=== PATIENT | female | born 1995 | race Caucasian/White ===

== ENCOUNTER → 2022-10-07 | Outpatient (CLI) | payer BC, SELFPAY | END | disposition home or self-care (01) | LOC: LABSPEC 15:11 | PROVIDERS: Referring Provider Registered Nurse; Visit Provider Registered Nurse | DX: R30.0 Dysuria (principal) | CPT/HCPCS: 87086; 87088; 87186 ==

== ENCOUNTER → 2022-10-13 | Outpatient (CLI) | payer BC, SELFPAY ==
[2022-10-13 12:01] LABS: hCG Titer Quant., Serum 34575 mIU/mL (1-3)
== END | disposition home or self-care (01) ==
PROVIDERS: PCP Family Medicine; Referring Provider Nurse Practitioner Women's Health; Visit Provider Nurse Practitioner Women's Health
DX: N91.2 Amenorrhea, unspecified (principal)
CPT/HCPCS: 36415; 84702; 86850; 86900; 86901

== ENCOUNTER → 2022-11-04 | Outpatient (CLI) | payer BC, SELFPAY ==
[2022-11-05 22:06] LABS: Chlamydia By Nucleic Acid AMP Negative (Negative)
[2022-11-05 22:22] LABS: Gonococcus By Nucleic Acid AMP Negative (Negative)
== END | disposition home or self-care (01) ==
LOC: LABSPEC 10:59
PROVIDERS: PCP Family Medicine; Referring Provider Obstetrics & Gynecology; Visit Provider Obstetrics & Gynecology
DX: Z34.90 Encounter for supervision of normal pregnancy, unspecified, unspecified trimester (principal)
CPT/HCPCS: 87086; 87088; 87491; 87591

== ENCOUNTER → 2022-11-27 | Outpatient (CLI) | payer BC, SELFPAY ==
[2022-11-27 09:44] LABS: Absolute Neutrophil Count 9.4 X10^3/uL (2.0-7.7); Basophil# 0.04 X10^3/uL; Basophil% 0.3 % (0-1); Eosinophil# 0.07 X10^3/uL; Eosinophils% 0.6 % (0-5); Hematocrit 37.2 % (37-47); Hemoglobin 12.7 g/dL (12.0-15.0); Lymphocyte % 12.8 % (19-41); Mean Corp Hgb Conc 34.1 g/dL (32-36); Mean Corpuscular Hgb 30.3 pg (27.0-32.0); Mean Corpuscular Volume 88.8 fL (81-99); Monocyte% 5.1 % (0-10); NRBC Flagged by Analyzer 0 % (0-5); Neutrophil # 9.41 X10^3/uL (2.7-7.7); Neutrophil % 80.4 % (47-70); Platelet Count 312 K/mm3 (150-450); RBC Distribution Width CV 12.3 % (11.6-14.6); RBC Distribution Width SD 39.9 fl (35.1-43.9); Red Blood Count 4.19 M/mm3 (4.2-5.4); White Blood Count 11.7 K/mm3 (4.4-11.0)
[2022-11-27 10:26] LABS: NATERA MAILED SPECIMEN
[2022-11-27 10:38] LABS: HIV - WCH Non-Reactive (Nonreactive); Hepatitis B Surface Antigen Non-Reactive (Nonreactive); Hepatitis C Antibody Non-Reactive (Nonreactive); Rubella IgG Reactive (Nonreactive); Syphilis Antibodies Non-reactive
== END | disposition home or self-care (01) ==
PROVIDERS: PCP Family Medicine; Referring Provider Obstetrics & Gynecology; Visit Provider Obstetrics & Gynecology
DX: Z34.81 Encounter for supervision of other normal pregnancy, first trimester (principal); Z31.430 Encounter of female for testing for genetic disease carrier status for procreative management
CPT/HCPCS: 36415; 85025; 86703; 86762; 86780; 86803; 86850; 86900; 86901; 87340

== ENCOUNTER → 2022-12-04 | Outpatient (CLI) | payer BC, SELFPAY ==
[2022-12-04 15:09] LABS: Glucose Challenge Gest 1H 50g 141 mg/dL (70-140)
== END | disposition home or self-care (01) ==
PROVIDERS: PCP Family Medicine; Referring Provider Obstetrics & Gynecology; Visit Provider Obstetrics & Gynecology
DX: O99.210 Obesity complicating pregnancy, unspecified trimester (principal); Z3A.00 Weeks of gestation of pregnancy not specified
CPT/HCPCS: 36415; 82950

== ENCOUNTER → 2022-12-10 | Outpatient (CLI) | payer BC, SELFPAY ==
[2022-12-10 08:17] LABS: Glucose GTT-Gestation. Fasting 91 mg/dL (<105)
[2022-12-10 08:34] LABS: Glucose GTT-Gestational 1 Hr 123 mg/dL (<190)
[2022-12-10 10:44] LABS: Glucose GTT-Gestational 3 Hr 92 L (<145)
[2022-12-10 10:46] LABS: Glucose GTT-Gestational 2 Hr 111 mg/dL (<165)
== END | disposition home or self-care (01) ==
LOC: LAB 07:01
PROVIDERS: PCP Family Medicine; Referring Provider Nurse Practitioner Women's Health; Visit Provider Nurse Practitioner Women's Health
DX: Z13.1 Encounter for screening for diabetes mellitus (principal)
CPT/HCPCS: 36415; 82951; 82952

== ENCOUNTER → 2023-03-19 | Outpatient (CLI) | payer BC, MEDICAID, SELFPAY ==
[2023-03-19 08:31] LABS: Absolute Lymphocyte Count 1.91 X10^3/uL (0.83-4.51); Absolute Neutrophil Count 12.1 X10^3/uL (2.0-7.7); Basophil# 0.07 X10^3/uL; Basophil% 0.5 % (0-1); Eosinophil# 0.08 X10^3/uL; Eosinophils% 0.5 % (0-5); Hemoglobin 11.9 g/dL (12.0-15.0); Lymphocyte # 1.91 X10^3/ul (0.83-4.51); Lymphocyte % 12.6 % (19-41); Mean Corpuscular Hgb 31.5 pg (27.0-32.0); Mean Corpuscular Volume 92.6 fL (81-99); Mean Platelet Vol. 11.1 fl (6.2-12.0); Monocyte# 0.62 X10^3/uL; Monocyte% 4.1 % (0-10); NRBC Flagged by Analyzer 0 % (0-5); Neutrophil # 12.08 X10^3/uL (2.7-7.7); Neutrophil % 79.9 % (47-70); Platelet Count 259 K/mm3 (150-450); RBC Distribution Width CV 12.6 % (11.6-14.6); RBC Distribution Width SD 42.4 fl (35.1-43.9); Red Blood Count 3.78 M/mm3 (4.2-5.4); White Blood Count 15.1 K/mm3 (4.4-11.0)
[2023-03-19 08:39] LABS: Glucose Challenge Gest 1H 50g 164 mg/dL (70-140)
[2023-03-19 09:13] LABS: HIV - WCH Non-Reactive (Nonreactive); Syphilis Antibodies Non-reactive
== END | disposition home or self-care (01) ==
PROVIDERS: PCP Family Medicine; Referring Provider Nurse Practitioner Women's Health; Visit Provider Nurse Practitioner Women's Health
DX: Z34.90 Encounter for supervision of normal pregnancy, unspecified, unspecified trimester (principal); Z13.1 Encounter for screening for diabetes mellitus; Z3A.00 Weeks of gestation of pregnancy not specified
CPT/HCPCS: 36415; 82950; 85025; 86703; 86780

== ENCOUNTER → 2023-04-05 | Outpatient (CLI) | payer BC, MEDICAID, SELFPAY ==
[2023-04-05 07:36] LABS: Glucose GTT-Gestation. Fasting 100 mg/dL (<105)
[2023-04-05 08:27] LABS: Glucose GTT-Gestational 1 Hr 176 mg/dL (<190)
[2023-04-05 09:35] LABS: Glucose GTT-Gestational 2 Hr 146 mg/dL (<165)
[2023-04-05 10:58] LABS: Glucose GTT-Gestational 3 Hr 135 L (<145)
== END | disposition home or self-care (01) ==
LOC: LAB 06:58
PROVIDERS: PCP Family Medicine; Referring Provider Nurse Practitioner Women's Health; Visit Provider Nurse Practitioner Women's Health
DX: Z13.1 Encounter for screening for diabetes mellitus (principal)
CPT/HCPCS: 36415; 82951; 82952

== ENCOUNTER → 2023-05-13 | Outpatient (CLI) | payer BC, MEDICAID, SELFPAY | END | disposition home or self-care (01) | LOC: LABSPEC 13:28 | PROVIDERS: PCP Family Medicine; Referring Provider Obstetrics & Gynecology; Visit Provider Obstetrics & Gynecology | DX: Z34.90 Encounter for supervision of normal pregnancy, unspecified, unspecified trimester (principal); Z3A.00 Weeks of gestation of pregnancy not specified | CPT/HCPCS: 87081; 87186 ==

== ENCOUNTER 2023-06-03 11:50 | Outpatient (CLI) | payer BC, MEDICAID, SELFPAY ==
[2023-06-03 12:09] VITALS: PULSE 106; O2SAT 97
--- NOTE | 2023-06-03 12:10 | US_ITS ---
STUDY: OBSTETRICAL ULTRASOUND - BIOPHYSICAL PROFILE REASON FOR EXAM: Female, 28 years old nonreassuring heart tones, well being LMP: 09/02/2022 PRIOR ULTRASOUND: None. TECHNIQUE: Transabdominal TECHNICAL QUALITY: Adequate. FINDINGS: There is a single intrauterine fetus. The fetus is in a cephalic presentation. There is demonstrated cardiac activity with a heart rate of 147 bpm. There is a normal amniotic fluid volume. The largest amniotic fluid pocket measures 4.42 cm. The amniotic fluid index (KEVON) is 15.44 cm. The placenta is fundal in location. There are Grade 2 placental changes. Age by LMP: 39 weeks, 1 days. DANIELLE by LMP: 06/09/2023. BIOPHYSICAL PROFILE: Breathing Movements (FBM): 2 Gross Body Movements (GBM): 2 Tone (FT): 2 Amniotic Fluid Volume (AFV): 2 TOTAL SCORE: US/Biophysical Prof W/O Non Stres IMPRESSION: Normal biophysical profile of 03/02. Electronically Signed: Devin Sood MD at 14:38 EST ,
[2023-06-03 12:12] VITALS: BMI 38.2
[2023-06-03 12:14] VITALS: BP 144/93; PULSE 102; TEMP 37.1
[2023-06-03 12:28] VITALS: BP 133/77; PULSE 104
--- NOTE | 2023-06-03 17:44 | OB.TRI.PN ---
Progress Notes Date of Service: 06/03/23 Progress Note: Patient presents for triage evaluation secondary to NRNST in office, now reactive FHT: 130-140 Moderate variability reactive no decelerations category I tracing [place]: no regular Contractions Assessment and plan: bpp 03/02 reassuring status Reactive NST, reassuring maternal and status patient discharged to home to follow-up []. See problem list details for additional plan information. Charges/Coding Procedures Urinary/Genital 52xxx-59xxx: 21226-87 non-stress test Interp Assessment & Plan (1) Non-reactive NST (non-stress test): COMMENT: bpp labor and delivery
== END 2023-06-03 14:29 | disposition home or self-care (01) ==
LOC: WPOUT 11:55 → WP 11:55
PROVIDERS: PCP Family Medicine; Visit Provider Obstetrics & Gynecology
DX: Z34.90 Encounter for supervision of normal pregnancy, unspecified, unspecified trimester (principal); Z3A.00 Weeks of gestation of pregnancy not specified
CPT/HCPCS: 59025; 59050; 76819; 99221; G0378

== ENCOUNTER 2023-06-09 11:10 | Inpatient (IN) | payer BC, MEDICAID, SELFPAY ==
[2023-06-09] VITALS (15 sets, daily range): BP systolic 129–200; BP diastolic 76–93; PULSE 80–105; TEMP 36.4–37.9; O2SAT 98–100; BMI 38.5
[2023-06-09 12:11] LABS: Absolute Neutrophil Count 12.5 X10^3/uL (2.0-7.7); Basophil# 0.06 X10^3/uL; Basophil% 0.4 % (0-1); Eosinophil# 0.05 X10^3/uL; Eosinophils% 0.3 % (0-5); Hemoglobin 14.2 g/dL (12.0-15.0); Mean Corpuscular Hgb 29.8 pg (27.0-32.0); Mean Corpuscular Volume 90.3 fL (81-99); Mean Platelet Vol. 12.5 fl (6.2-12.0); Monocyte# 1.09 X10^3/uL; Monocyte% 6.9 % (0-10); NRBC Flagged by Analyzer 0 % (0-5); Neutrophil # 12.53 X10^3/uL (2.7-7.7); Neutrophil % 79.1 % (47-70); Platelet Count 232 K/mm3 (150-450); RBC Distribution Width CV 13.3 % (11.6-14.6); RBC Distribution Width SD 43.8 fl (35.1-43.9); Red Blood Count 4.76 M/mm3 (4.2-5.4); White Blood Count 15.8 K/mm3 (4.4-11.0)
[2023-06-09] MEDS: Lactated Ringers 1,000 ML 999 ML IV (12:35)
[2023-06-09 12:52] LABS: Syphilis Antibodies Non-reactive
--- NOTE | 2023-06-09 13:09 | HP.PCM.OB_ITS ---
HPI - General General Date of Admission: 06/09/23 Date of Service: 06/09/23 HPI Narrative GAYLA LONGORIA, is a 28 y/o @ 40 weeks who presents to L&D after several hours of minimal to moderate variability without accelerations. The decision is made to proceed with IOL. Maternal Data Information DANIELLE Calculator Estimated Delivery Date Method Current WG Current Estimate 06/09/23 LMP (Certain) 40w 0d PFSH PFSH Medical History (Updated 06/09/23 @ 12:01 by Haylee Westfall) Anxiety GBS (group B Streptococcus carrier), +RV culture, currently Ulcerative colitis Home Medications QOW-[id number]-omega 3-fat com #1 27 mg-1 mg-300 mg capsule 1 cap PO DAILY 10/07/22 [History Last Taken 06/09/23 08:00 1 cap] sertraline 50 mg tablet (Zoloft) 50 mg PO DAILY #30 tabs 03/22/23 [Rx Last Taken 06/09/23 08:00 50 mg] ondansetron 4 mg disintegrating tablet 4 mg PO Q4H PRN nausea and vomiting #60 tabs 04/09/23 [Rx Last Taken 06/09/23 08:00 4 mg] Allergy/AdvReac Type Severity Reaction Status Date / Time cephalexin Allergy Rash Verified 06/09/23 10:37 Family History Mother Endometriosis Surgical History (Updated 06/09/23 @ 12:01 by Haylee Westfall) History of surgery History of surgery Social History adopted: No household members: significant other current occupational status: employed current occupation: [employer] current occupational exposures/hazards: No pets and animals: Yes (4 cats not managing litterbox) history of recent travel: No sexually active: Yes Smoking Status: Never smoker second hand exposure: No alcohol intake: never substance use type: does not use well-balanced diet: daily or most days caffeine: No eating out: 1-3 times/week during the past year weight has: remained stable what type of physical activity do you participate in: walking and running frequency: 1-2 times per week duration: 45-60 minutes/day amy/jainism: Jain seatbelt use: always do you feel safe at home: Yes additional social history: Boyfriend Hugo [employer] History 1 Elective abortions Hx Para 0 Spontaneous abortions Hx # Term Pregnancies Ectopic pregnancies Hx # Pregnancies Multiple births # of living children Visit Details Expected Delivery Route/Plan Labor Preferences- CB/BF classes: encouraged labor support person: Hugo leon intervention preferences: minimal pain management options preferred: limited intervention cut cord/dad catch: Dad cord. Mom wants to catch : yes PP control planned: discussed discussed possible routes of delivery and associated risks: [] special requests: [] Plans Covid status: declined Flu vaccine: given 03/19 Tdap vaccine: given 03/19 Rhogam: NA LARC form signed: yes movement and labor precautions reviewed. Problem list reviewed and updated with the most current plan of care details and appropriate orders placed. Relevant counseling for the gestational age provided. Continue routine care and follow up unless otherwise noted in visit notes/problem list details OB Flowsheet Initial Weight: Not Recorded Date -?-?-?-?-?-?-?-?-?-?-?-?- EGA Weight BP Urine Prot -?-?-?-?-?-?-?-?-?-?-?-?- Glucose FHR FuHt Pres Dilation -?-?-?-?-?-?-?-?-?-?-?-?- Effaced St Visit Note 11/04/22 -?-?-?-?-?-?-?-?-?-?-?-?- 9w 0d 179 lb 135/83 -?-?-?-?-?-?-?-?-?-?-?-?- 180 -?-?-?-?-?-?-?-?-?-?-?-?- JV- single live IUP consistent with LMP. Wants to start back on anxiety/depression medication. desires NIPT 11/27/22 -?-?-?-?-?-?-?-?-?-?-?-?- 12w 2d 178 lb 6 oz 127/87 Nega tive -?-?-?-?-?-?-?-?-?-?-?-?- Negative 168 -?-?-?-?-?-?-?-?-?-?-?-?- SM- CRL cons wit h LMP 12/03/22 -?-?-?-?-?-?-?-?-?-?-?-?- 13w 1d 177 lb 2 oz 122/78 Nega tive -?-?-?-?-?-?-?-?-?-?-?-?- Negative 144 -?-?-?-?-?-?-?-?-?-?-?-?- MH-No VB, crampi ng. Brief US confirm FHT 12/30/22 -?-?-?-?-?-?-?-?-?-?-?-?- 17w 0d 183 lb 130/84 Negative -?-?-?-?-?-?-?-?-?-?-?-?- Negative 145 -?-?-?-?-?-?-?-?-?-?-?-?- KW-+flutters no vb/cramping. US on 01/11. discussed AFP- declines at this time. 01/21/23 -?-?-?-?-?-?-?-?-?-?-?-?- 20w 1d 189 lb 4 oz 122/80 Nega tive -?-?--?-?-?-?-?-?-?-?-?-?- Negative 140 -?-?-?-?-?-?-?-?-?-?-?-?- JV- amniotic she et discussed. pt went to [facility] and they cleared her to follow up with us and mfm with weekly bpps starting 32 weeks. MFM will likely be doing monthly ultrasounds for growth. 02/18/23 -?-?-?-?-?-?-?-?-?-?-?-?- 24w 1d 200 lb 6 oz 112/74 Nega tive -?-?-?-?-?-?-?-?-?-?-?-?- Negative 151 -?-?-?-?-?-?-?-?-?-?-?-?- MH-No VB, LOF. G ood FM. Following w/MFM for amniotic sheet. 03/02/23 -?-?-?-?-?-?-?-?-?-?-?-?- 25w 6d 200 lb 6 oz 123/78 Nega tive -?-?-?-?-?-?-?-?-?-?-?-?- Negative 146 -?-?-?-?-?-?-?-?-?-?-?-?- MH-work in for e jay in legs last weekend. Better now. 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 Not for breaks every 2 hours for 15 min, limit week to 25-30 hr. 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 No VB. Good FM 03/22/23 -?-?-?-?-?-?-?-?-?-?-?-?- 28w 5d 201 lb 8 oz 124/82 Nega tive -?-?-?-?-?-?-?-?-?-?-?-?- Negative 152 29 -?-?-?-?-?-?-?-?-?-?-?-?- MH-No VB, LOF. G ood FM. States increasing anxiety. 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 Had used zoloft in past and would like to try that. Aware needs 3 hr GTT, anxious about that. with her and supportive. Enc counseling 04/09/23 -?-?-?-?-?-?-?-?-?-?-?-?- 31w 2d 202 lb 4 oz 120/78 Nega tive -?-?-?-?-?-?-?-?-?-?-?-?- Negative 140 32 -?-?-?-?-?-?-?-?-?-?-?-?- SM- no vb lof go od fm no regular ctx encouraged cb classes 04/29/23 -?-?-?-?-?-?-?-?-?-?-?-?- 34w 1d 207 lb 8 oz 114/74 Nega tive -?-?-?-?-?-?-?-?-?-?-?-?- Negative 145 34 -?-?-?-?-?-?-?-?-?-?-?-?- SM- no vb lof go od fm no regular ctx discussed just breathe classes 04/30/23 -?-?-?-?-?-?-?-?-?-?-?-?- 34w 2d Negative -?-?-?-?-?-?-?-?-?-?-?-?- Negative 135 -?-?-?-?-?-?-?-?-?-?-?-?- KW-NST only. chaz ctive 05/13/23 -?-?-?-?-?-?-?-?-?-?-?-?- 36w 1d 213 lb 2 oz 125/85 Nega tive -?-?-?-?-?-?-?-?-?-?-?-?- Negative 120 -?-?-?-?-?-?-?-?-?-?-?-?- SM- no vb lof go od fm n oregular ctx gbs done 05/20/23 -?-?-?-?-?-?-?-?-?-?-?-?- 37w 1d 214 lb 6 oz 132/85 -?-?-?-?-?-?-?-?-?-?-?-?- 140 -?-?-?-?-?-?-?-?-?-?-?-?- SM- no vb crmapi ng no regular ctx 05/26/23 -?-?-?-?-?-?-?-?-?-?-?-?- 38w 0d 214 lb 2 oz 125/85 Nega tive -?-?-?-?-?-?-?-?-?-?-?-?- 500 g/dL 140 37 Cephalic 1 -?-?-?-?-?-?-?-?-?-?-?-?- 0 -3 JV- no lof , vaginal bleeding or dec fm. nst reactive. recommendations to deliver for usual obstetrical conditions so will discuss delivery between 40-41 weeks unless anything new shows up in meantime. 06/03/23 -?-?-?-?-?-?-?-?-?-?-?-?- 39w 1d 215 lb 4 oz 122/87 -?-?-?-?-?-?-?-?-?-?-?-?- 140 -?-?-?-?-?-?-?-?-?-?-?-?- SM- plan for [place] according to normal indications 40-41 weeks SM- plan for delivery accord ing to normal indications 40-41 weeks. nst nonreactive today- to l and d for extended monitoring and bpp 06/09/23 -?-?-?-?-?-?-?-?-?-?-?-?- 40w 0d 217 lb 8 oz 124/88 Nega tive -?-?-?-?-?-?-?-?-?-?-?-?- Negative 150 -?-?-?-?-?-?-?-?-?-?-?-?- JV- nst shows mi nimal variability. sending to L&D now for further monitoring and possible IOL. ROS Constitutional Constitutional: Denies change in weight, fatigue, fever(s), headache(s), poor appetite or weakness Eyes Eyes: Denies blurry vision, change in vision, seeing flashes or spots in vision ENT HEENT: Denies dizziness, headache(s), loss taste/smell or sore throat Cardiovascular Cardiovascular: Denies chest pain, dizziness, dyspnea, irregular heart rhythm, leg edema, palpitations, rapid heart rate or vomiting Respiratory/Chest Respiratory/Chest: Denies chest tightness, cough, dyspnea or breast pain Gastrointestinal Gastrointestinal: Denies abdominal pain, anorexia, constipation, cramping, diarrhea, hemorrhoids, vomiting or weight changes Genitourinary Genitourinary: Denies dysuria, flank pain, genital lesions, genital pain, urinary frequency or urinary urgency Musculoskeletal Musculoskeletal: Denies back pain, difficulty walking, joint pain, limited range of motion, muscle cramps or numbness Integumentary Integumentary: Denies lesions or unusual bruising Neurologic Neurologic: Denies abnormal movements, abnormal speech, dizziness, numbness, seizure-like activity or syncope Psychiatric Psychiatric: Denies anxiety, behavioral changes, change in appetite, change in libido, cognitive impairment, confusion, depression, difficulty concentrating, hallucinations or suicidal thoughts Endocrine Endocrinology: Denies excessive sweating, polydipsia or polyuria Hematologic/Lymphatic Hematologic/Lymphatic: Denies easy bleeding, easy bruising or lymphadenopathy Allergic/Immunologic Allergic/Immunologic: Denies itchy eyes, lip swelling, seasonal rhinorrhea, rhinitis, throat swelling, tongue swelling, eczemia, wheezing or asthma Vital Signs Vital Signs Vital Signs: 06/09/23 10:49 06/09/23 10:49 06/09/23 10:56 Temperature Temperature Source Pulse Rate 94 105 H Blood Pressure 136/88 H BP Systolic 136 BP Diastolic 88 Pulse Ox 06/09/23 10:56 06/09/23 10:49 06/09/23 10:49 Temperature 98.5 F Temperature Source Tympanic Pulse Rate Blood Pressure BP Systolic BP Diastolic Pulse Ox 98 Weight Weight: 217 lb 13.067 oz Body Mass Index (BMI) 38.5 Physical Exam Const alert, oriented x3, no apparent distress and healthy appearing General Appearance: cooperative; Negative for anxious HEENT normocephalic Face and Sinus: normal facial exam Eyes EOMs intact bilaterally and no scleral icterus General Eye: normal appearance of both eyes Neck full ROM and supple Lymph Lymphatic: no lymphadenopathy noted Chest Chest: abnormal inspection of the chest Resp normal respiratory effort Effort and Inspection: able to speak in complete sentences Cardio regular rate GI soft to palpation and non-tender Inspection: gravid Palpation: soft; Negative for tender external exam normal Back/Spine no CVA tenderness Extremity normal to inspection, full ROM and no clubbing, cyanosis or edema General Extremity: Negative for calf tenderness or edema Skin Lesions: no lesions Rashes: no rashes Psych mental status grossly normal Labs Labs Labs: Blood Type A POSITIVE Antibody Screen NEGATIVE Hct 43.0 % (37-47) Hgb 14.2 g/dL (12.0-15.0) Syphilis Total Ab Non-reactive Rubella IgG Antibody Reactive (Nonreactive) Hep Bs Antigen Non-Reactive (Nonreactive) Hepatitis C Antibody Non-Reactive (Nonreactive) Chlamydia DNA (RAS) Negative (Negative) N.gonorrhoeae DNA (RAS) Negative (Negative) HIV 1&2 Antibody Non-Reactive (Nonreactive) Glucose 1 Hr 50 gm 164 mg/dL (70-140) H Gest Glucose Tolerance MG/DL Assessment & Plan (1) Non-reactive NST (non-stress test): COMMENT: bpp labor and delivery PLAN: Patient presents IOL, plan management for with cytotec 50 mcg now then 25 and whittaker/pit as needed then after that. Pain management: plans epidural. GBS negative. Management of any complications: obesity I have reviewed the [facility] and made any clinically relevant updates. (2) Abnormal glucose affecting : COMMENT: Passed, however, elevated readings. Advised to watch diet (3) Edema of lower extremity in second trimester, antepartum: COMMENT: bilat lower leg feet-reassured. Note for breaks at work. Compression stockings (4) Amniotic adhesion: COMMENT: sheet not kate anymore just abnormal cord insertion, 02/24 55% growth; 03/22 growth 60% Growth US Q4wk weekly nsts (5) Obesity affecting : QUALIFIERS: Trimester: second trimester Obesity type affecting : unspecified obesity Qualified Code(s): O99.212 - Obesity complicating , second trimester COMMENT: nl 3 hr GTT (6) Supervision of high risk , antepartum: COMMENT: [id number], DANIELLE 06/09/23, isidro Arias (7) : QUALIFIERS: Weeks of gestation: 40 weeks Qualified Code(s): Z3A.40 - 40 weeks gestation of COMMENT: nl anatomy and growth. NIPT low risk, carrier testing neg. (8) Anxiety: COMMENT: transitioning off Cymbalta has had counseling in the past, encouraged use. Never started effexor. Will try zoloft. Enc counseling (9) GBS (group B Streptococcus carrier), +RV culture, currently : (10) Ulcerative colitis: QUALIFIERS: Ulcerative colitis location: other ulcerative colitis Digestive disease complication type: without complication Qualified Code(s): K51.80 - Other ulcerative colitis without complications COMMENT: having current flare up, may be on Remicade. mothertoba resource, safe
[2023-06-09] MEDS: miSOPROStol 50 MCG TABLET VAGINAL (13:50)
[2023-06-09] MEDS: Acetaminophen 500 MG Tablet PO (16:35)
[2023-06-09] MEDS: LACTATED RINGERS 500 ML 999 ML IV ×2 (17:50→21:25)
[2023-06-09] MEDS: Lactated Ringers 1,000 ML 50 ML IV (17:51)
[2023-06-09] MEDS: 0.9% Normal Saline Single 100 ML IV.SOLN. INTRA-UTER (21:03)
--- NOTE | 2023-06-09 21:04 | PCM.PN.BLA ---
Progress Note pt is sitting up in bed comfortably. She states that she wants to try to labor without an epidural but wants to try vistaril. She consents to a whittaker balloon current tracing: FHT: 160 Moderate variability reactive . occassional and rare variable decelerations, currently category I tracing [place]: q1-2 min Contractions. cx: 50/-3 whittaker bulb placed without difficulty A/P: 28 y/o @ 40 weeks - induced for non-reactive nst for several hours, now reactive cat 1 and status post 50 mcg of cytotec whittaker bulb in place. may start pit when bulb comes out start pcn when bulb comes out for GBS +
[2023-06-09] MEDS: hydrOXYzine PAM 25 MG Capsule 50 MG PO (21:42)
[2023-06-09] MEDS: Penicillin G Pot 5,000,000 UNITS in 0.9% Normal Saline (100mL MB+) 100 ML 150 UNITS IV (22:31)
[2023-06-09] MEDS: fentaNYL 100 MCG/2 ML Ampul IV (23:51)
[2023-06-10] VITALS (63 sets, daily range): BP systolic 99–162; BP diastolic 53–89; PULSE 78–121; RESP 16–18; TEMP 36.1–37.5; O2SAT 88–100
[2023-06-10] MEDS: LACTATED RINGERS 500 ML 999 ML IV (00:14)
[2023-06-10] MEDS: fentaNYL-bupivacaine (epidural) 100 ML BAG EPIDURAL (01:26)
[2023-06-10] MEDS: Penicillin G 3,000,000 Units 50 ML 100 UNITS IV (02:33)
[2023-06-10] MEDS: Acetaminophen 500 MG Tablet PO (03:15)
[2023-06-10] MEDS: Sodium Citrate/Citric Acid 30 ML UDC PO (03:15)
[2023-06-10] MEDS: Oxytocin 15 Units/NS 250ml 15 UNITS/250 ML IV.SOLN 334 UNITS IV (04:16)
[2023-06-10] MEDS: Methylergonovine 0.2 MG/ML Ampul IM (04:20)
--- NOTE | 2023-06-10 04:29 | OP.PCM_ITS ---
Assessment & Plan (1) Non-reassuring cardiotocographic tracing: (2) Non-reactive NST (non-stress test): COMMENT: bpp labor and delivery (3) Abnormal glucose affecting : COMMENT: Passed, however, elevated readings. Advised to watch diet (4) Edema of lower extremity in second trimester, antepartum: COMMENT: bilat lower leg feet-reassured. Note for breaks at work. Compression stockings (5) Amniotic adhesion: COMMENT: sheet not kate anymore just abnormal cord insertion, 02/24 55% growth; 03/22 growth 60% Growth US Q4wk weekly nsts (6) Obesity affecting : QUALIFIERS: Trimester: second trimester Obesity type affecting : unspecified obesity Qualified Code(s): O99.212 - Obesity complicating , second trimester COMMENT: nl 3 hr GTT (7) Supervision of high risk , antepartum: COMMENT: [id number], DANIELLE 06/09/23, isidro Arias (8) : QUALIFIERS: Weeks of gestation: 40 weeks Qualified Code(s): Z3A.40 - 40 weeks gestation of COMMENT: nl anatomy and growth. NIPT low risk, carrier testing neg. (9) Anxiety: COMMENT: transitioning off Cymbalta has had counseling in the past, encouraged use. Never started effexor. Will try zoloft. Enc counseling (10) GBS (group B Streptococcus carrier), +RV culture, currently : (11) Ulcerative colitis: QUALIFIERS: Ulcerative colitis location: other ulcerative colitis Digestive disease complication type: without complication Qualified Code(s): K51.80 - Other ulcerative colitis without complications COMMENT: having current flare up, may be on Remicade. mothertobaby resource, safe Maternal Data Information DANIELLE Calculator Estimated Delivery Date Method Current WG Current Estimate 06/09/23 LMP (Certain) 40w 1d Final DANIELLE: 06/09/23 Final DANIELLE Source: LMP Doctor Who Attended Delivery: Temitope Reynoso Vaginal Delivery Maternal Presentation Maternal Presentation: Medically Indicated Induction Maternal Presentation: Mated to labor and delivery for a nonreactive NST in the office the morning of 06/09/2023. This was the second nonreactive strip in a week and the decision was made to proceed with induction of labor. While on labor and delivery several hours passed in the tracing showed minimal to moderate variability but not accelerations until she ate lunch. At that time we saw a reactive nonstress test and started Cytotec for induction at 1400. Type of Induction: Cytotec Operative Information Date of Procedure: 06/10/23 Pre-Operative Diagnosis: 28-year-old G1, P0 at 40 weeks gestation, nonreactive NST, nonreassuring heart rate tracing Post-Operative Diagnosis: 28-year-old G1, P0 at 40 weeks gestation, nonreactive NST, nonreassuring heart rate tracing Surgery / Procedure Performed: Vacuum Assisted Vaginal Delivery Type of Anesthesia: Epidural Anesthesiologist: Denny Granado Drain: Kebede to straight drain Estimated Blood Loss: 200cc Findings Description of Procedure: Details of delivery: This is a 28 year old @ 40 weeks 1 day woman who was admitted to labor and delivery for a nonreactive NST at term. She progressed to 5 cm dilated and nurses called with a report that the patient had a tracing showing minimal variability with late decelerations. Upon further examination she was noted to have aixa red blood and decision was made to transfer her to the operating room for further assessment. By the time we got to the operating room she was 9 cm and this was only several minutes later. I allowed her to push at 9 cm and the cervix was pushed back behind the head. Late decelerations were then noted after the contractions and the patient was turned to her side. The decision was made to perform a vacuum extraction due to the observation of dilating quickly and quick descent of the baby. I believed at that time the infant could be delivered faster vaginally than via . The risk benefits and alternatives of the procedure were discussed with the patient and verbal consent was obtained. The was noted to be at a +2 station, the cervix was completely dilated with the exception of a small rim of the cervix on the patient's left side that encompassed about 20% of the 's head. The infant's head was noted to be in the right occiput anterior presentation. The vacuum was placed in the correct placement in front of the posterior fontanelle. This was confirmed digitally. With the patient's next contraction, the vacuum was inflated and a gentle downward pressure. The seal immediately broke due to blood and fluid. I then allowed her to push 7 more times each time pushing the cervix back further and bringing the down farther. By the eighth contraction she was completely dilated and the Kiwi vacuum was again applied in the same manner as above to assist with bringing the baby's head to a +3 station. With 2 more pulls (first was a pop-off), the head was delivered atraumatically. No nuchal cord was noted. The anterior shoulder followed by the posterior shoulder were delivered without difficulty. The infant was handed off to the patient's chest. The was found to be vigorous and crying and moving of all 4 extremities. The mouth and nares were bulb suctioned. The cord was immediately clamped and cut and the infant was handed off to the awaiting assurance associate for assessment. The placenta was delivered with gentle traction, uterine massage, and gently guiding the placenta out through the vagina manually due to a weak umbilical cord that was starting to tear. Inspection of the vagina cervix and perineum was performed. There were no lacerations to the vagina or to the cervix. The peritoneum was found to have a second-degree perineal laceration. The perineal laceration was closed using a 2-0 Vicryl in the usual sterile fashion. The patient tolerated the procedure well sponge lap and needle counts were correct x2 and she is now recovering in stable condition. Presentation: Vertex Amniotic Membrane Rupture Type: Spontaneous Time of Membrane Rupture: 00:08 Amniotic Fluid Description: Moderate meconium Placental Delivery Description: Expressed Placenta Disposition: Sent to Pathology Cord Vessel Description: 3 Vessels Cord Entanglement: None Cord Gases: ABG and VBG A Gender: Female (1 minute): 7 (5 minute): 8 Delayed Cord Clamping: No Post Vaginal Delivery Medications Given After Delivery: IV Pitocin and IM Methergin Episiotomy Description: None Laceration: 2nd degree Multi Select Codes Urinary/Genital Urinary/Genital CPT Codes: 50260 Vaginal Delivery global pkg and Other Procedure See Report (vacuum assisted vaginal delivery )
--- NOTE | 2023-06-10 04:30 | PLAC_PTH ---
PATIENT: GAYLA LONGORIA LOC: [facility] U#:[id number] AGE/SX: 28/F [facility]: Dr. Shama Rojas DO : 1995 BED: 1 DIS: 06/12/2023 SPEC #: [id number] RECD: 06/10/23 08:09 STATUS: HEMAL REED #: [id number] LIZETTE: 06/10/23 04:[address]: Shama Rojas DEPT: SURGICAL PATHOLOGY RECD BY: Nahomi Queen ENTERED: 06/10/23 08:09 SP TYPE: PLACENTA OTHR DR: Dr. Nikhil Gaffney MD Tissues: Placenta, NOS Procedures: Surgery Specimen Level V HEADER OPERATION: Vaginal delivery PRE-OP DIAGNOSIS: Suspected placental abruption TISSUE SUBMITTED: Placenta MICROSCOPIC DIAGNOSIS Monet placenta (417 gm): Umbilical cord - trivascular with no inflammation. Placental membranes - No pathologic change. Placental disc - mildly increased intraparenchymal fibrin plaques and intervillous congestion. AM:dipesh 06/14/2023 MICROSCOPIC DESCRIPTION Slides are reviewed. GROSS DESCRIPTION SPECIMEN: PLACENTA / CLINICAL INFORMATION: A. Weight: 3.305 kg B. Gestational Age: 40 weeks C. Sex: Male PLACENTAL WEIGHT (POST FIXATION): 417 gm PLACENTAL DIMENSIONS: 17.0 x 14.0 x 3.0 cm PLACENTAL SHAPE: Usual ovoid PLACENTAL WEIGHT FOR GESTATIONAL AGE: Within 10-99th percentile MEMBRANES - Present A. Insertion: Marginal B. Site of rupture from edge: At edge of placental disc C. Color of membrane: Bell-becerra D. Abnormalities: None UMBILICAL CORD - Present A. Color: Bell-becerra B. Insertion: Part membranous insertion and eccentric C. Length: 42.0 cm D. Diameter: 1.2 cm E. Number of vessels: Three F. Abnormalities: None PLACENTAL DISC - Present A. Color of surface: Bell-becerra B. surface abnormalities: None C. Maternal cotyledons: Intact with minimal tears D. Attached retro placental clot: No clot E. Cut surface: Dark red and spongy F. Lesions: None G. Separate clot: Absent SECTIONS SUBMITTED: 1. Umbilical cord ( end notched) 2. Umbilical cord, placental end 3. Membrane roll 4. Placental disc, and maternal surfaces 5. Placental disc, and maternal surfaces 6. Placental disc, and maternal surfaces AM:dipesh 06/11/2023 TC:5 CPT: 28482
[2023-06-10] MEDS: Oxytocin 15 Units/NS 250ml 15 UNITS/250 ML IV.SOLN 83 UNITS IV (04:47)
--- NOTE | 2023-06-10 04:50 | DCINST_ITS ---
Discharge Instructions Diet Discharge Diet: No restrictions Activity Discharge Activity: Return to Normal Activity, May Not Drive (while taking narcotic pain medications.) and May Shower May resume sexual activity in: 4-6 weeks Dressing / Incision Call your doctor if your incision/area has: Continuous Slow Oozing, Sudden Increased Bleeding, Increased Pain/ Swelling, Increased Redness and Foul Smelling Discharge Follow Up Care Please Follow Up With: Shama Rojas, When: Call [phone] to make an appointment with your doctor in 6 weeks. If you had elevated blood pressure or 4th degree laceration, you will need to be seen in 2 weeks. Test Results: Test results from this visit will be discussed in further detail at your follow- up appointment, if applicable. Discharge Plan Admission Admit Date/Time: 06/09/23 11:10 Attending Provider: Shama Rojas Primary Care Provider: Nikhil Gaffney Discharge Orders/Prescriptions Prescriptions: No Action HSY-lmue-LV-omega 3-fat com #1 27-1-300 mg capsule 1 cap PO DAILY sertraline [Zoloft] 50 mg tablet 50 mg PO DAILY Qty: 30 4RF ondansetron 4 mg tablet,disintegrating 4 mg PO Q4H PRN (Reason: nausea and vomiting) Qty: 60 2RF Referrals / Follow Up: Nikhil Gaffney MD [Primary Care Provider] -
[2023-06-10 07:41] LABS: Pathology Specimen OB SEE PATHOLOGY REPORT
[2023-06-10] MEDS: Ibuprofen 600 MG Tablet PO ×2 (11:16→18:11)
[2023-06-11] MEDS: Ibuprofen 600 MG Tablet PO ×2 (02:05→23:09)
[2023-06-11] MEDS: Acetaminophen 500 MG Tablet 1000 MG PO (02:06)
[2023-06-11] MEDS: oxyCODONE 5 MG Tablet PO (02:48)
[2023-06-11 02:52] VITALS: BP 137/93; PULSE 97; RESP 18; TEMP 36.4; O2SAT 98
--- NOTE | 2023-06-11 07:55 | PCM.PN.OB ---
Subjective Subjective Patient doing well without complaints. Tolerating PO. Ambulating without difficulty. Feeding well. Denies chest pain, shortness of breath, calf pain/swelling, fevers, chills, lightheadedness. Her only complaint is that she did not urinate x 11 hours and had to be straight cath'ed over night. She is trying to hydrate and go on her own today. Objective Data Objective Data Vital Signs: Vital Signs Temp Pulse Resp BP Pulse Ox O2 Del Method 97.6 F L 97 18 137/93 H 98 Room Air 06/11/23 02:52 06/11/23 02:52 06/11/23 02:52 06/11/23 02:52 06/11/23 02:52 06/11/23 02:52 Oxygen Delivery Method Room Air Weight: 217 lb 13.067 oz Body Mass Index (BMI) 38.5 Intake & Output: Intake and Output for Last 24 Hours 06/09/23 06/10/23 06/11/23 23:59 23:59 23:59 Intake Total 2104 / 2104 2049.00 / 2049. Output Total 1100 / 1100 200 / 200 Balance 2104 950.00 / 950.00 -200 / -200 Lab / Micro Data 06/09/23 11:30 ROS Constitutional Constitutional: Denies chills, fatigue, fever(s), poor appetite or weakness Eyes Eyes: Denies blurry vision, change in vision, seeing flashes or spots in vision ENT HEENT: Denies dizziness, headache(s), loss taste/smell or sore throat Cardiovascular Cardiovascular: Denies chest pain, dizziness, dyspnea, irregular heart rhythm, palpitations or rapid heart rate Respiratory/Chest Respiratory/Chest: Denies chest tightness, cough, dyspnea or breast pain Gastrointestinal Gastrointestinal: Denies abdominal pain, constipation or vomiting Genitourinary Genitourinary: Denies dysuria or flank pain Musculoskeletal Musculoskeletal: Denies difficulty walking, joint pain, limited range of motion or numbness Neurologic Neurologic: Denies abnormal movements, abnormal speech, dizziness, numbness, seizure-like activity or syncope Psychiatric Psychiatric: Denies anxiety, behavioral changes, change in appetite, confusion, depression or suicidal thoughts Physical Exam Const alert, oriented x3 and no apparent distress General Appearance: cooperative and comfortable Resp normal respiratory effort Cardio regular rate GI normal to inspection, nondistended, normoactive bowel sounds GI Narrative: uterus is firm below umbilicus Palpation: soft Back/Spine no CVA tenderness and thoraco-lumbar ROM normal Extremity normal to inspection, no clubbing, cyanosis or edema, no calf tenderness and no pedal edema Psych mental status grossly normal, thought process normal, cooperative, affect normal, speech normal, activity/motor behavior normal, denies homicidal ideation and denies suicidal ideation Assessment & Plan (1) Status post vacuum-assisted vaginal delivery: PLAN: Plan s/p PPD # 1 1. routine post delivery care 2. breast feeding- support given 3. rh positive 4. rubella immune 5. work on hydration and urination today 6. plan for dc to home tomorrow
[2023-06-11 08:08] VITALS: BP 132/85; PULSE 88; RESP 16; TEMP 36.5; O2SAT 96
--- NOTE | 2023-06-11 10:49 | CASEMGMT ---
Social Work Assessment Labor and Delivery Unit Patient Address: [address] [place] [id number] Phone number: [phone] Date of Referral: 06/09/23 Time of Referral:? 1216 Referred By: Shama Rojas Date of Intervention: ??06/11/23 Time of Intervention:? 1000 Reason for Referral:? no contact with parents and on zoloft for anxiety Sw completed chart review and acknowledges social work consult due to maternal mental health history and no contact with maternal grandparents. Sw presented to bedside and introduced self to mother of baby (JOSE- Ora) and father of baby (FOB- Hugo). Sw explained sw role during admission. Sw completed psychosocial assessment and provided support and education. History obtained from: medical records, MOB and FOB. Household composition: JOSE states that she moved in with COLLIN about 10 months ago. No one else lives with parents. baby will reside with mom and dad once ready for discharge. No housing concerns at this time. Patient's parent/guardian status:? ?Parents state that they met on a dating site and have been together for a little more than a year. No concerns of domestic violence or intimate partner violence. Medical History:JOSE is 28 year old female who is gravdia 1, para 0- now 1 following labor and delivery of baby. JOSE received routine care during with Lena. JOSE delivered baby on 06/10/23 via vaginal delivery. Baby boy, named Taiwo Biswas, was born weighing 7lb 5oz and his apgars were 7 and 8 at one and five minutes of life respectfully. JOSE states that she is breast feeding and it is going ok- confirmed she has a breast pump for home. Baby is struggling with blood sugars and may require transfer to Special Care Nursery. Educational Status:? Both parents graduated from high school and obtained some college education- but no college degrees. Parents deny concerns with reading, learning or comprehension. Financial Status: Both parents are gainfully employed outside of the home. 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 COLLIN works as a bank operations officer and is able to take 6 weeks off for paternity leave. Infant Supplies: Parents report they have obtained everything they need for baby including: car seat, safe sleep space, clothes, diapers, wipes and a breast pump. Childcare/Caregiver(s):?Mercyll be the primary caregiver to baby when she is on maternity leave, along with COLLIN when he is not at work. MOB states that once both parents have to return to work they will utilize a day care for childcare. Transportation:?? Both parents have their drivers license and reliable means of transportation. No transportation barriers at this time. Programs/Agencies Involved: ?JOSE is connected to Medicaid as a secondary insurance. ?? Children Services/Legal Issues:???No history of children services involvement. No issues or concerns warranting a referral to be made at this time. Behavioral Health Issues: ??Mental Health History:?FOCarmen denies mental health history/ diagnoses. MOB states that she has been diagnosed with anxiety and is prescribed zoloft. JOSE si not connected to any mental health supports/ counselors at this time. ?? Substance Use History:??MOB denies substance use prior to and during . Family History:???JOSE states that both of her parents smoke weed regularly and also struggle with alcoholism. ?? Drug Screens: ?No urine screens observed in chart review. ? Family/Social Stressors:? JOSE reports that she does not have contact with her parents, she does not have a relationship with them and does not want them to know that she is admitted with baby. Parents deny any other stressors or concerns at this time. Support Systems: MOB states that FOB is her biggest support person. Parents state that paternal grandparents are also strong supports. COLLIN states that MOB's sister is also a good support person for MOB. Sw encouraged parents to talk to their supports should MOB struggle with baby blues or anxiety/ depression following delivery of baby. Parents expressed understanding. Depression/Shaken Baby/Safe Sleeping:? Sw educated parents on signs and symptoms of baby blues and depression/ anxiety. Parents expressed understanding. Sw educated parents on shaken baby prevention and ABCs of safe sleep. Parents expressed understanding. Sw also explained to MOB that due to her mental health history, diagnoses of anxiety, and her traumatic delivery of baby (delivered in OR) she may be more susceptible to experiencing baby blues and/ or depression/ anxiety. MOB expressed understanding. ASSESSMENT:? MOB and baby admitted following labor and delivery. MOB states that baby started to cluster feed last night and she has not gotten hardly any sleep in the last 48 hours. MOB was quiet, but did answer questions, made good eye contact. MOB would look to FOB to answer questions from time to time during assessment. FOB talkative and receptive to sw involvement and support. PLAN:? MOB and baby to be discharged when medically ready. ?No other services requested or indicated. Babar Lerner, ESCALATOR OPERATOR, SOCIAL CONTACT WORKER
[2023-06-11 14:49] VITALS: BP 138/88; PULSE 97; RESP 16; TEMP 37; O2SAT 97
[2023-06-11 17:02] VITALS: BP 143/93; PULSE 108; RESP 18; TEMP 36.6; O2SAT 99
[2023-06-11 18:23] VITALS: BP 131/96; PULSE 91; RESP 16; TEMP 36.4; O2SAT 97
[2023-06-11 21:28] VITALS: BP 125/91; PULSE 89; RESP 15; TEMP 36.8; O2SAT 97
[2023-06-12 01:29] VITALS: BP 137/79; PULSE 88; RESP 15; TEMP 36.6; O2SAT 97
[2023-06-12 07:49] VITALS: BP 128/78; PULSE 84; RESP 16; TEMP 36.9
--- NOTE | 2023-06-12 08:20 | DS.PCM_ITS ---
Providers Date of Admission: 06/09/23 Date of Discharge: 06/12/23 Primary Care Physician: Dr. Nikhil Gaffney MD Reason For Visit: VAGINAL DELIVERY Diagnosis Discharge Diagnosis (1) Status post vacuum-assisted vaginal delivery: Status: Acute Code(s): Z87.59 - Personal history of other complications of , childbirth and the puerperium Medications at Discharge Home Medications IHP-guyp-TT-omega 3-fat com #1 27 mg-1 mg-300 mg capsule 1 cap PO DAILY 10/07/22 sertraline 50 mg tablet (Zoloft) 50 mg PO DAILY #30 tabs 03/22/23 ondansetron 4 mg disintegrating tablet 4 mg PO Q4H PRN nausea and vomiting #60 tabs 04/09/23 Hospital Course Operations None and - Procedures - (VAVD) Summary of Care Provided Minutes Spent on Discharge: 20 Hospital Course: IOL for NRNST in office became fully dilated and proceeded with VAVD in OR after recurrent decelerations. pt with urinary retention and was monitored for additional day. now voiding spontaneously without difficulty. VSS. Physical Exam Const alert, oriented x3 and no apparent distress General Appearance: cooperative and comfortable Resp normal respiratory effort Cardio regular rate GI normal to inspection, nondistended, normoactive bowel sounds GI Narrative: uterus is firm below umbilicus Palpation: soft Back/Spine no CVA tenderness and thoraco-lumbar ROM normal Extremity normal to inspection, no clubbing, cyanosis or edema, no calf tenderness and no pedal edema Psych mental status grossly normal, thought process normal, cooperative, affect normal, speech normal, activity/motor behavior normal, denies homicidal ideation and denies suicidal ideation Weight / BMI Weight Weight: 217 lb 13.067 oz Body Mass Index (BMI) 38.5 ABG / Lab / Microbiology Data 06/09/23 11:30 D/C Instructions Discharge Diet: No restrictions May resume sexual activity in: 4-6 weeks (after bleeding resolves / after 6 week exam) Call your doctor if your incision/area has: Continuous Slow Oozing, Sudden Increased Bleeding, Increased Pain/ Swelling, Increased Redness and Foul Sme lling Discharge Please Follow Up With: Shama Rojas, When: Call [phone] to make an appointment with your doctor in 6 weeks. If you had elevated blood pressure or 4th degree laceration, you will need to be seen in 2 weeks. Meaningful Use Info Meaningful Use Diagnoses (Choose all that apply): None applicable Discharge Plan Admission Admit Date/Time: 06/09/23 11:10 Attending Provider: Shama Rojas Primary Care Provider: Nikhil Gaffney Instructions Patient Instructions: After a Vaginal Discharge Orders/Prescriptions Prescriptions: No Action ZRY-cezp-ZX-omega 3-fat com #1 27-1-300 mg capsule 1 cap PO DAILY sertraline [Zoloft] 50 mg tablet 50 mg PO DAILY Qty: 30 4RF ondansetron 4 mg tablet,disintegrating 4 mg PO Q4H PRN (Reason: nausea and vomiting) Qty: 60 2RF Referrals / Follow Up: Nikhil Gaffney MD [Primary Care Provider] - Disposition Disposition (needs filled in before D/C Order can be placed): Home, Self Care
--- NOTE | 2023-06-12 08:28 | PN.OBGYN_ITS ---
Subjective Subjective Patient doing well without complaints. Tolerating PO. Ambulating and voiding without difficulty. Feeding well, infant currently in SCN for hypoglycemia, pumping every 3 hours. Denies chest pain, shortness of breath, calf pain/swelling, fevers, chills, lightheadedness. Objective Data Objective Data Vital Signs: Vital Signs Temp Pulse Resp BP Pulse Ox O2 Del Method 98.4 F 84 16 128/78 H 97 Room Air 06/12/23 07:49 06/12/23 07:49 06/12/23 07:49 06/12/23 07:49 06/12/23 01:29 06/12/23 07:49 Oxygen Delivery Method Room Air Weight: 217 lb 13.067 oz Body Mass Index (BMI) 38.5 Intake & Output: Intake and Output for Last 24 Hours 06/10/23 06/11/23 06/12/23 23:59 23:59 23:59 Intake Total 2050.00 / 2050.00 Output Total 1100 / 1100 200 / 200 Balance 950.00 / 950.00 -200 / -200 Lab / Micro Data 06/09/23 11:30 Physical Exam Const alert, oriented x3 and no apparent distress General Appearance: cooperative and comfortable Resp normal respiratory effort Cardio regular rate GI normal to inspection, nondistended, normoactive bowel sounds GI Narrative: uterus is firm below umbilicus Palpation: soft Back/Spine no CVA tenderness and thoraco-lumbar ROM normal Extremity normal to inspection, no clubbing, cyanosis or edema, no calf tenderness and no pedal edema Psych mental status grossly normal, thought process normal, cooperative, affect normal, speech normal, activity/motor behavior normal, denies homicidal ideation and denies suicidal ideation Assessment & Plan (1) Status post vacuum-assisted vaginal delivery: COMMENT: MELYSSA [id number]-[id number] Taiwo PLAN: s/p PPD # 2 1. routine post delivery care 2. breast feeding- support given 3. rh positive 4. rubella immune 5. d/c to hotel status today (2) Anxiety: COMMENT: transitioning off Cymbalta has had counseling in the past, encouraged use. Never started effexor. Will try zoloft. Enc counseling (3) Ulcerative colitis: QUALIFIERS: Ulcerative colitis location: other ulcerative colitis Digestive disease complication type: without complication Qualified Code(s): K51.80 - Other ulcerative colitis without complications COMMENT: having current flare up, may be on Remicade. [facility], safe
[2023-06-12 13:52] VITALS: BP 140/96; PULSE 104; RESP 16; TEMP 37.2; O2SAT 98
[2023-06-12] MEDS: Ibuprofen 600 MG Tablet PO (15:07)
[2023-06-12 16:18] VITALS: BP 135/85; PULSE 78; RESP 16; TEMP 36.8
--- NOTE | 2023-06-12 17:49 | NURSING ---
Spoke with Ilia Gupta about elevated BP. No other symptoms. Okay with discharge.
== END 2023-06-12 18:10 | disposition home or self-care (01) | DRG 806 ==
LOC: WPOUT 11:14 → WP 11:18
PROVIDERS: Admitting Provider Obstetrics & Gynecology; PCP Family Medicine; Referring Provider Obstetrics & Gynecology; Visit Provider Obstetrics & Gynecology
DX: O76 Abnormality in fetal heart rate and rhythm complicating labor and delivery (principal); Z37.0 Single live birth; K51.90 Ulcerative colitis, unspecified, without complications; O99.344 Other mental disorders complicating childbirth; F41.9 Anxiety disorder, unspecified; O99.214 Obesity complicating childbirth; O99.62 Diseases of the digestive system complicating childbirth; O99.824 Streptococcus B carrier state complicating childbirth; O99.893 Other specified diseases and conditions complicating puerperium; R33.9 Retention of urine, unspecified; O77.0 Labor and delivery complicated by meconium in amniotic fluid; O70.1 Second degree perineal laceration during delivery; Z3A.40 40 weeks gestation of pregnancy
CPT/HCPCS: 59025; 59050; 85025; 86780; 86850; 86900; 86901; 88307; 99221; J7120; G0378

== ENCOUNTER 2023-07-08 18:02 | Emergency (ER) | payer BC, MEDICAID, SELFPAY ==
[2023-07-08 18:03] VITALS: BP 136/89; PULSE 99; RESP 18; TEMP 36.8; O2SAT 98; BMI 33.2
--- NOTE | 2023-07-08 18:35 | EX.ED.DYSGE1 ---
HPI History of Present Illness Chief Complaint: Diarrhea [facility] Medical History Anxiety GBS (group B Streptococcus carrier), +RV culture, currently Ulcerative colitis Home Medications THE-vrqc-WL-omega 3-fat com #1 27 mg-1 mg-300 mg capsule 1 cap PO DAILY 10/07/22 [History Last Taken 06/09/23 08:00 1 cap] sertraline 50 mg tablet (Zoloft) 50 mg PO DAILY #30 tabs 03/22/23 [Rx Last Taken 06/09/23 08:00 50 mg] ondansetron 4 mg disintegrating tablet 4 mg PO Q4H PRN nausea and vomiting #60 tabs 04/09/23 [Rx Last Taken 06/09/23 08:00 4 mg] ibuprofen 600 mg tablet 600 mg PO Q6H PRN fever #30 tabs 06/12/23 [Rx Last Taken Unknown] Allergy/AdvReac Type Severity Reaction Status Date / Time cephalexin Allergy Rash Verified 07/08/23 18:03 Family History Mother Endometriosis Surgical History History of surgery History of surgery Social History adopted: No household members: significant other current occupational status: employed current occupation: [employer] current occupational exposures/hazards: No pets and animals: Yes (4 cats not managing litterbox) history of recent travel: No sexually active: Yes Smoking Status: Never smoker second hand exposure: No alcohol intake: never substance use type: does not use well-balanced diet: daily or most days caffeine: No eating out: 1-3 times/week during the past year weight has: remained stable what type of physical activity do you participate in: walking and running frequency: 1-2 times per week duration: 45-60 minutes/day amy/episcopal: Adventist seatbelt use: always do you feel safe at home: Yes additional social history: Boyfriend 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 Notes has history of ulcerative colitis. Notes copious bouts of diarrhea with blood streaking. Denies any lightheadedness, pallor, shortness of breath, fatigue. States she has not had any ulcer colitis flare since prior to being . Notes she delivered approximate 1 month ago. She denies any focal abdominal pain or chest pain. REVIEW OF SYSTEMS: Pertinent positives: Diarrhea Pertinent negatives: Chest pain, shortness of breath, difficulty urinating, heavy vaginal bleeding PHYSICAL EXAM: Nursing triage notes reviewed, Vital signs reviewed Constitutional: please see mdm HENT: MMM Eyes: Pupils equal round and reactive to light, Extraocular muscles intact Neck: No stridor, no JVD, full neck ROM Lungs: Clear to auscultation, No wheezing or rales. No increased work of breathing, no conversational dyspnea, no accessory muscle use, no nasal flaring. No respiratory distress noted Heart: Regular rate and rhythm, No murmurs, No rubs and No gallops, 2+ distal pulses (radial, femoral, posterior tibial) in all extremities Abdomen: Soft, there is no tenderness, rigidity, rebound or guarding, no obvious peritoneal signs, no palpable pulsatile abdominal masses, no auscultated abdominal bruit : No CVAT Extremities: No edema Neuro: No focal neurological deficits, cranial nerves II through XII intact, 5/5 strength in all extremities. Intact sensation to light touch in all extremities, 2+ reflexes bilateral patella tendons. Normal gait. No ataxia. Skin: No rash or lesions noted MEDICAL DECISION MAKING: Chief Complaint: Diarrhea External records reviewed: No recent Pichardo imaging of the abdomen or pelvis Factors affecting care: Ulcerative colitis Social determinants of health: none History obtained from others: none Consults: none [facility] Narrative: Patient presented hemodynamically stable, afebrile and nontoxic-appearing. Abdominal exam was benign. I considered obtaining advanced imaging of the patient's abdomen pelvis however her benign abdominal exam made imaging unnecessary. Low suspicion for acute surgical process of the abdomen or pelvis. I considered the following differential diagnosis: Dehydration, UC flare, electrolyte disturbance ALL IMAGES (IF OBTAINED) HAVE BEEN PERSONALLY REVIEWED AND INTERPRETED BY MYSELF. CBC without leukocytosis, severe anemia, no thrombocytopenia. CMP without evidence of acute kidney injury, significant electrolyte abnormality, anion gap, no evidence hepatobiliary pathology. Lipase is wnl indicating no pancreatic inflammation. Was treated with IV Solu-Medrol, IV Toradol. Will give a short course of steroids. Did discuss risk and benefits of steroids and breast-feeding. Discussed with pharmacy. There is no contraindication to breast-feeding with steroids. I encouraged prompt gastroenterology follow-up. The patient and/or family, caregivers express understanding. The patient and/or family, caregivers agrees with the plan. Shared decision making: I will have a discussion with the patient and or visitors regarding risk/benefits of further testing or admission. They will be made aware of of the risk/benefits inherent in this decision they will be given the opportunity to voice understanding. Total critical care time today provided was at least 0 [] minutes. This excludes separately billable procedures. Critical care time (if documented) is secondary to the patient having high probability of clinically significant/life threatening deterioration in the patient's condition which required my urgent intervention. Impression: 1. Diarrhea 2. History of ulcerative colitis Dispo: Discharge Lab Data Labs: Laboratory Results - last 24 hr 07/08/23 19:08 WBC 6.8 RBC 4.44 Hgb 13.1 Hct 40.2 MCV 90.5 MCH 29.5 MCHC 32.6 RDW Std Deviation 40.0 RDW Coeff of Stephani 12.0 Plt Count 315 MPV 10.9 Immature Gran % (Auto) 0.600 Neut % (Auto) 64.5 Lymph % (Auto) 21.3 [place] % (Auto) 11.7 H Eos % (Auto) 1.3 Baso % (Auto) 0.6 Absolute Neuts (auto) 4.4 Absolute Lymphs (auto) 1.44 Nucleated RBC % 0 Sodium 140 Potassium 3.6 Chloride 111 H Carbon Dioxide 25.0 Anion Gap 4 L BUN 9 Creatinine 0.75 Estim Creat Clear Calc 93.20 Est GFR (MDRD) Af Amer 119 Est GFR (MDRD) Non-Af 98 BUN/Creatinine Ratio 12.0 Glucose 85 Calcium 9.2 Total Bilirubin 0.70 AST 19 ALT 32 Alkaline Phosphatase 119 H Total Protein 7.0 Albumin 3.3 Globulin 3.7 Albumin/Globulin Ratio 0.9 Lipase 16 Discharge Plan Triage Chief Complaint: Diarrhea ED Provider: Neal Thompson Dx/Rx/DC Orders Prescriptions: No Action CTC-fdbh-AS-omega 3-fat com #1 27-1-300 mg capsule 1 cap PO DAILY sertraline [Zoloft] 50 mg tablet 50 mg PO DAILY Qty: 30 4RF ondansetron 4 mg tablet,disintegrating 4 mg PO Q4H PRN (Reason: nausea and vomiting) Qty: 60 2RF ibuprofen 600 mg tablet 600 mg PO Q6H PRN (Reason: fever) Qty: 30 0RF Primary Care Provider: Nikhil Gaffney Referrals: Nikhil Gaffney MD [Primary Care Provider] -
[2023-07-08] MEDS: Ondansetron 4 MG/2 ML Vial IV (19:10)
[2023-07-08] MEDS: Ketorolac 15 MG/ML Vial IV (19:10)
[2023-07-08] MEDS: 0.9% Normal Saline (1000mL) 1,000 ML 1000 ML IV (19:11)
[2023-07-08 19:22] LABS: Absolute Lymphocyte Count 1.44 X10^3/uL (0.83-4.51); Absolute Neutrophil Count 4.4 X10^3/uL (2.0-7.7); Basophil# 0.04 X10^3/uL; Basophil% 0.6 % (0-1); Eosinophil# 0.09 X10^3/uL; Eosinophils% 1.3 % (0-5); Hematocrit 40.2 % (37-47); Hemoglobin 13.1 g/dL (12.0-15.0); Lymphocyte # 1.44 X10^3/ul (0.83-4.51); Lymphocyte % 21.3 % (19-41); Mean Corp Hgb Conc 32.6 g/dL (32-36); Mean Corpuscular Hgb 29.5 pg (27.0-32.0); Mean Corpuscular Volume 90.5 fL (81-99); Mean Platelet Vol. 10.9 fl (6.2-12.0); Monocyte# 0.79 X10^3/uL; Monocyte% 11.7 % (0-10); NRBC Flagged by Analyzer 0 % (0-5); Neutrophil # 4.35 X10^3/uL (2.7-7.7); Neutrophil % 64.5 % (47-70); Platelet Count 315 K/mm3 (150-450); Red Blood Count 4.44 M/mm3 (4.2-5.4); White Blood Count 6.8 K/mm3 (4.4-11.0)
[2023-07-08 19:40] LABS: ALB/GLOB Ratio 0.9 RATIO (0.9-2.4); AST(SGOT) 19 U/L (15-37); Alanine Aminotransfer ALT/SGPT 32 U/L (13-56); Albumin, Serum 3.3 g/dL (3.2-5.0); Alkaline Phosphatase 119 U/L (45-117); Anion Gap 4 (5-15); BUN 9 mg/dL (7-18); Calcium,Total 9.2 mg/dL (8.5-10.1); Chloride 111 mmol/L (98-107); Creatinine, Serum 0.75 mg/dL (0.55-1.02); EST Glomerular Filtration Rate 98 mL/min (>60); Est Glom Filt Rate - Afr Amer 119 mL/min (>60); Globulin 3.7 g/dL (2.2-4.2); Glucose 85 mg/dL (74-106); Lipase 16 U/L (13-75); Potassium 3.6 mmol/L (3.5-5.1); Sodium Level 140 mmol/L (136-145)
[2023-07-08 20:08] LABS: Internal QC Validated? YES +Cl - CLEAR BKGD; Pregnancy, Urine Negative Negative
[2023-07-08 20:26] VITALS: PULSE 67; RESP 18; O2SAT 100
[2023-07-08] MEDS: predniSONE 20 MG Tablet 40 MG PO (20:34)
== END 2023-07-08 20:27 | disposition home or self-care (01) ==
PROVIDERS: Emergency Provider Emergency Medicine; PCP Family Medicine; Visit Provider Emergency Medicine
DX: R19.7 Diarrhea, unspecified (principal); K51.90 Ulcerative colitis, unspecified, without complications; F41.9 Anxiety disorder, unspecified; Z79.899 Other long term (current) drug therapy
CPT/HCPCS: 80053; 81025; 83690; 85025; 96361; 96374; 96375; 99282; J7030; A4216; J2405

== ENCOUNTER 2023-07-25 10:04 | Emergency (ER) | payer BC, MEDICAID, SELFPAY ==
[2023-07-25 10:06] VITALS: BP 140/95; PULSE 125; RESP 16; TEMP 36.8; O2SAT 97; BMI 32.6
--- NOTE | 2023-07-25 10:30 | CT_ITS ---
STUDY: CT ABDOMEN AND PELVIS WITH CONTRAST REASON FOR EXAM: Female, 28 years old. Abdominal pain, history of ulcerative colitis RADIATION DOSAGE (If Supplied By Facility): CTDIvol = ( 13.35 ) mGy, DLP = ( 1015.45 ) mGycm TECHNIQUE: IV 100mL Isovue-370 was administered. Transaxial images were obtained from the dome of the diaphragm to the symphysis pubis in the arterial, nephrographic and excretory phases. Multiplanar coronal and sagittal images were reformatted. Individualized Dose Optimization Techniques Were Used For This CT. COMPARISON: No relevant prior comparison study available FINDINGS: The visualized lung bases are unremarkable. The visualized portions of the heart are within normal limits. Normal liver. Normal gallbladder and extrahepatic biliary system. Normal spleen. Normal pancreas. Normal bilateral adrenal glands. Normal visualized stomach. Normal in caliber small bowel loops. Views thickening of the colon extending from the rectum to the ascending colon consistent with colitis. The appendix is not clearly identified. Normal abdominal aorta. No retroperitoneal adenopathy. Normal right kidney. Normal left kidney. Normal urinary bladder. Normal abdominal wall. Normal osseous structures. CT/Abdomen/Pelvis W IV Cont ONLY IMPRESSION: Diffuse thickening of the colon consistent with colitis which could be inflammatory/ulcerative colitis or infectious. Electronically Signed: Harjinder Fontana MD at 11:45 EST ,
--- NOTE | 2023-07-25 10:34 | ED.VIS.GI ---
HPI HPI - GI History of Present Illness Chief Complaint: Abd Pain Informant: patient Narrative Narrative: And is presenting with exacerbation of ulcerative colitis. Patient was diagnosed with ulcerative colitis in about 2014. She has family history of both UC and Crohn's. She has never had any intra-abdominal surgeries. She was going to be started on Biologics but became . She delivered in mid May of this year. She really had no symptoms while she was . She started having exacerbation with increased bowel movements and watery diarrhea after delivery. She was seen here about 2 weeks ago. She had blood work done. She was given IV Solu-Medrol and 5 days of prednisone at 50 mg. She states it really did not change anything. She has been having blood in the stool. She also started with some fevers last night although she does not have that today. She also has started some discomfort in the lower abdomen. It is mostly mid down low. No urinary symptoms. No vaginal discharge. She had mild nausea but has Zofran and that helped. She has never vomited. Only current medicines are sertraline and vitamins. She is breast-feeding currently. [facility] Medical History Anxiety GBS (group B Streptococcus carrier), +RV culture, currently Ulcerative colitis Home Medications [id number] 3-fat com #1 27 mg-1 mg-300 mg capsule 1 cap PO DAILY 10/07/22 [History Last Taken 06/09/23 08:00 1 cap] sertraline 50 mg tablet (Zoloft) 50 mg PO DAILY #30 tabs 03/22/23 [Rx Last Taken 06/09/23 08:00 50 mg] ondansetron 4 mg disintegrating tablet 4 mg PO Q4H PRN nausea and vomiting #60 tabs 04/09/23 [Rx Last Taken 06/09/23 08:00 4 mg] ibuprofen 600 mg tablet 600 mg PO Q6H PRN fever #30 tabs 06/12/23 [Rx Last Taken Unknown] prednisone 50 mg tablet 50 mg PO DAILY #5 tabs 07/08/23 [Rx Last Taken Unknown] budesonide 9 mg tablet,delayed and extended release 9 mg PO DAILY #7 ea 07/25/23 [Rx Last Taken Unknown] hydrocodone-acetaminophen 5-325mg 5mg-325mg 1 tab PO Q6H PRN PRN Pain 3 days #10 TABLETS 07/25/23 [Rx Last Taken Unknown] Allergy/AdvReac Type Severity Reaction Status Date / Time cephalexin Allergy Rash Verified 07/25/23 10:06 Family History Mother Endometriosis Surgical History History of surgery History of surgery Social History adopted: No household members: significant other current occupational status: employed current occupation: [employer] current occupational exposures/hazards: No pets and animals: Yes (4 cats not managing litterbox) history of recent travel: No sexually active: Yes Smoking Status: Never smoker second hand exposure: No alcohol intake: never substance use type: does not use well-balanced diet: daily or most days caffeine: No eating out: 1-3 times/week during the past year weight has: remained stable what type of physical activity do you participate in: walking and running frequency: 1-2 times per week duration: 45-60 minutes/day amy/hoahaoism: Hinduism seatbelt use: always do you feel safe at home: Yes additional social history: 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 Some specific details below. Constitutional: She did have a fever about 101 just within the last day. She only had this 1 time. EYE: No visual complaints or pain. ENT: No difficulty swallowing. No swelling. No pain. No GERD. CV: No chest pain or palpitations. Respiratory: No dyspnea. No hemoptysis. No difficulty taking breaths. GI: Please see history of present illness. : No frequency dysuria or hematuria. Musculoskeletal: No recent trauma. No pains. Skin: No rash. Nondiaphoretic. Neuro: No weakness or numbness. Endocrine: No polyuria or polydipsia. EXAM Physical Exam Narrative Exam Narrative: CONSTITUTIONAL: Patient is nontoxic in appearance. The patient looks comfortable. HEENT: No notable trauma. Mucous membranes still do look moist. EYES: No conjunctival injection. No proptosis. No icterus. CARDIOVASCULAR: Regular rate. Regular rhythm. No notable murmur. No JVD. RESPIRATORY: No respiratory distress. Breathing is unlabored. No wheezes. No rhonchi. No rales. No pain with a deep breath. GASTROINTESTINAL: Not distended. Bowel sounds are normal to slightly decreased. Very mild lower mid tenderness but no guarding. No rebound. No palpable mass. No bruit. GENITOURINARY: No tenderness over the bladder. No CVA tenderness. MUSCULOSKELETAL: Atraumatic. No peripheral edema. No cord. No tenderness along the deep venous system. No asymmetry. NEUROLOGICAL: Patient is alert and appropriate. No focal deficit noted. SKIN: No noted rashes. No diaphoresis. PSYCHIATRIC: Patient is calm. Mood is appropriate. Const Vital Signs: 07/25/23 10:06 Temperature 98.2 F Temperature Source Oral Pulse Rate 125 H Respiratory Rate 16 Blood Pressure 140/95 H Blood Pressure Mean 110 Pulse Ox 97 Oxygen Delivery Method Room Air MDM MDM MDM Narrative Medical decision making narrative: My end and interpretation of the patient's CT of the abdomen does show diffuse colitis mostly at the sigmoid area. Final reading is similar. Patient's white count is minimally up which is nonspecific at 13.6. Hemoglobin is down from last check but still does not put her at risk. Hemoglobin is 10.9. Platelets are now normal at 15. Electrolytes show minimally low potassium at 3.2. Liver function test are showing no marked abnormalities. Patient's lipase is normal. Patient's serum is negative. Patient has a history of ulcerative colitis, she is having worsening symptoms. She tried 5 days of steroids. I will try budesonide extended release to see if this will act more locally and give her some benefit. She likely needs to start Biologics. She has an appointment with rent and housing investigator in 2 days and I think she is stable to make that appointment and then they can initiate further therapy. Lab Data Attestation: I reviewed the patient's lab results. Labs: Laboratory Results - last 24 hr 07/25/23 10:46 WBC 13.6 H RBC 3.71 L Hgb 10.9 L Hct 33.9 L MCV 91.4 MCH 29.4 MCHC 32.2 RDW Std Deviation 41.1 RDW Coeff of Stephani 12.5 Plt Count 415 MPV 10.2 Immature Gran % (Auto) 0.400 Neut % (Auto) 79.0 H Lymph % (Auto) 10.5 L Kinney % (Auto) 8.9 Eos % (Auto) 0.7 Baso % (Auto) 0.5 Absolute Neuts (auto) 10.8 H Absolute Lymphs (auto) 1.43 Nucleated RBC % 0 Sodium 141 Potassium 3.2 L Chloride 108 H Carbon Dioxide 27.0 Anion Gap 6 BUN 5 L Creatinine 0.71 Estim Creat Clear Calc 98.46 Est GFR (MDRD) Af Amer 128 Est GFR (MDRD) Non-Af 105 BUN/Creatinine Ratio 7.1 L Glucose 100 Calcium 8.4 L Total Bilirubin 0.40 AST 12 L ALT 18 Alkaline Phosphatase 103 Total Protein 6.3 L Albumin 2.6 L Globulin 3.7 Albumin/Globulin Ratio 0.7 L Lipase 19 Serum , Qual NEGATIVE Radiography Diagnostic Testing: Clinical Impression(s) from Imaging Studies Abdomen/Pelvis CT 07/25/23 10:30 IMPRESSION: Diffuse thickening of the colon consistent with colitis which could be inflammatory/ulcerative colitis or infectious. Electronically Signed: Harjinder Fontana MD at 11:45 EST , Discharge Plan Triage Chief Complaint: Abd Pain ED Provider: Kalpesh Ly Dx/Rx/DC Orders Clinical Impression: Ulcerative colitis Instructions: Ulcerative Colitis Dc Prescriptions: New budesonide 9 mg tablet,delayed and ext.release 9 mg PO DAILY Qty: 7 0RF hydrocodone-acetaminophen [hydrocodone-acetaminophen] 5-325 mg tablet 1 tab PO Q6H PRN PRN (Reason: Pain) 3 Days Qty: 10 0RF No Action [id number] 3-fat com #1 27-1-300 mg capsule 1 cap PO DAILY sertraline [Zoloft] 50 mg tablet 50 mg PO DAILY Qty: 30 4RF ondansetron 4 mg tablet,disintegrating 4 mg PO Q4H PRN (Reason: nausea and vomiting) Qty: 60 2RF prednisone 50 mg tablet 50 mg PO DAILY Qty: 5 0RF ibuprofen 600 mg tablet 600 mg PO Q6H PRN (Reason: fever) Qty: 30 0RF Primary Care Provider: Nikhil Gaffney Referrals: Nikhil Gaffney MD [Primary Care Provider] - As Needed Activity Restrictions/Additional Instructions: Follow-up with your rent and housing investigator on 27 July as planned Disposition Disposition: Home, Self Care
[2023-07-25] MEDS: 0.9% Normal Saline (1000mL) 1,000 ML 1000 ML IV (10:45)
[2023-07-25 10:56] LABS: Absolute Lymphocyte Count 1.43 X10^3/uL (0.83-4.51); Absolute Neutrophil Count 10.8 X10^3/uL (2.0-7.7); Basophil# 0.07 X10^3/uL; Basophil% 0.5 % (0-1); Eosinophil# 0.09 X10^3/uL; Eosinophils% 0.7 % (0-5); Hematocrit 33.9 % (37-47); Hemoglobin 10.9 g/dL (12.0-15.0); Lymphocyte # 1.43 X10^3/ul (0.83-4.51); Lymphocyte % 10.5 % (19-41); Mean Corp Hgb Conc 32.2 g/dL (32-36); Mean Corpuscular Hgb 29.4 pg (27.0-32.0); Mean Corpuscular Volume 91.4 fL (81-99); Mean Platelet Vol. 10.2 fl (6.2-12.0); Monocyte# 1.21 X10^3/uL; Monocyte% 8.9 % (0-10); NRBC Flagged by Analyzer 0 % (0-5); Neutrophil # 10.77 X10^3/uL (2.7-7.7); Platelet Count 415 K/mm3 (150-450); RBC Distribution Width CV 12.5 % (11.6-14.6); RBC Distribution Width SD 41.1 fl (35.1-43.9); Red Blood Count 3.71 M/mm3 (4.2-5.4); White Blood Count 13.6 K/mm3 (4.4-11.0)
--- OUTSIDE RECORDS SUMMARY | 2023-07-25 10:59 | XMS RPT_ITS | CCD ---
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 aunt. She reports that she has never smoked. She has never used smokeless tobacco. She reports current alcohol use. She reports that she does not use drugs. Current Outpatient Medications Medication Sig Dispense Refill DULoxetine (CYMBALTA) 20 MG capsule Take 1 (one) capsule (20 mg total) by mouth daily . 90 capsule 3 No current facility-administered medications for this visit. . Review of Systems HENT: Positive for congestion and sore throat. Neurological: Positive for headaches. Objective Physical Exam Constitutional: Appearance: Normal appearance. HENT: Right Ear: Tympanic membrane normal. Left Ear: Tympanic membrane normal. Nose: Nose normal. Cardiovascular: Rate and Rhythm: Regular rhythm. Heart sounds: Normal heart sounds. Skin: General: Skin is warm and dry. Neurological: Mental Status: She is alert. Psychiatric: Mood and Affect: Mood normal. Behavior: Behavior normal. Thought Content: Thought content normal. Judgment: Judgment normal. Assessment/Plan: Diagnoses and all orders for this visit: Exudative tonsillitis - Strep A Culture, Throat; Future Anxiety - DULoxetine (CYMBALTA) 20 MG capsule; Take 1 (one) capsule (20 mg total) by mouth daily . Electronically signed by Miriam Cosme [facility] documented in this encounter [facility] 03-14-2021 History of Presen t illness Narrative Labs drawn right arm. documented in this encounter [facility] 02-26-2021 History of Presen t illness Narrative Images from the original note were not included. HPI On sertraline for 1 1/2 years not working great now. Heart races and propranol bid for years has helped. Big thing is pain left lower quadrant, blood in stool, hx of ulcerative colitis dx dr. Smith and hasn't really seen him for 4 years. Here to establish. 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 Vitals: 02/26/21 1639 BP: 124/87 Temp: 97.5 F (36.4 C) Pulse: 98 Resp: 16 SpO2: 98% PT WEIGHT Weight 02/26/2021 181 lb 9.6 oz 09/28/2019 140 lb 08/10/2019 166 lb 4.8 oz 07/28/2019 147 lb BP Readings from Last 4 Encounters: 02/26/21 124/87 09/28/19 (!) 133/92 08/10/19 121/83 07/28/19 127/79 Past Medical History: Diagnosis Date Anxiety Complication of anesthesia had panic attack with wisdom teeth removed. Ulcerative colitis (HCC) Past Surgical History: Procedure Laterality Date COLONOSCOPY N/A 07/28/2019 Procedure: HC COLONOSCOPY W BIOPSY; Surgeon: Nikhil Carlos MD; Location: [facility] [place]; Service: General Surgery COLONOSCOPY W/ BIOPSIES 08/03/2014 colitis...Luis WISDOM TOOTH EXTRACTION Social History Socioeconomic History Marital status: Single Spouse name: Not on file Number of children: Not on file Years of education: Not on file Highest education level: Not on file Occupational History Not on file Tobacco Use Smoking status: Never Smoker Smokeless tobacco: Never Used Vaping Use Vaping Use: Some days Substances: Nicotine Substance and Sexual Activity Alcohol use: Yes Comment: occasional Drug use: Never Sexual activity: Not on file Other Topics Concern Not on file Social History Narrative Not on file Social Determinants of Health Financial Resource Strain: Difficulty of Paying Living Expenses: Food Insecurity: Worried About Running Out of Food in the Last Year: Ran Out of Food in the Last Year: Transportation Needs: Lack of Transportation (Medical): Lack of Transportation (Non-Medical): Physical Activity: Days of Exercise per Week: Minutes of Exercise per Session: Stress: Feeling of Stress : Social Connections: Frequency of Communication with Friends and Family: Frequency of Social Gatherings with Friends and Family: Attends [employer] Services: Active Member of Clubs or Organizations: Attends Club or Organization Meetings: Marital Status: Family History Problem Relation Age of Onset Ulcerative colitis Maternal Aunt Colon cancer Maternal Aunt Crohn's disease Paternal Cousin Crohn's disease Paternal Cousin Current Outpatient Medications Medication Sig Dispense Refill propranoloL (INDERAL) 60 MG tablet Take 1 (one) tablet (60 mg total) by mouth 2 (two) times a day . 60 tablet 11 sertraline (ZOLOFT) 100 MG tablet sertraline (ZOLOFT) 25 MG tablet Take 100 mg by mouth daily . sulfamethoxazole-trimethoprim (BACTRIM DS,SEPTRA DS) 800-160 mg per tablet Take 1 (one) tablet by mouth 2 (two) times a day . (Patient not taking: Reported on 02/26/2021 .) 14 tablet 0 No current facility-administered medications for this visit. PHQ-9 Depression Screening - 02/26/21 1637 Over the last 2 weeks, how often have you been bothered by any of the following problems? (Retired)Little interest or pleasure in doing things Little interest or pleasure in doing things 0 (Retired)Feeling down, depressed, or hopeless Feeling down, depressed, or hopeless 1 PHQ-2 Total Score 1 Trouble falling or staying asleep, or sleeping too much 2 Feeling tired or having little energy 2 Poor appetite or overeating 2 Feeling bad about yourself - or that you are a failure or have let yourself or your family down 0 Trouble concentrating on things, such as reading the newspaper or watching television 0 Moving or speaking so slowly that other people could have noticed. Or the opposite - being so fidgety or restless that you have been moving around a lot more than usual 0 Thoughts that you would be better off , or of hurting yourself in some way 0 PHQ-9 Total Score 7 RETIRED - PHQ-9 Total Score If you checked off any problems, how difficult have these problems made it for you to do your work, take care of things at home, or get along with other people? PHQ-2 Total Score Goals None Review of Systems Constitutional: Positive for fatigue. HENT: Negative. Respiratory: Negative. Gastrointestinal: Positive for blood in stool and diarrhea. Endocrine: Negative. Genitourinary: Negative. Musculoskeletal: Negative. Neurological: Negative. Hematological: Negative. Psychiatric/Behavioral: The patient is nervous/anxious. Physical Exam Vitals and nursing note reviewed. Constitutional: Appearance: Normal appearance. She is well-developed. She is not ill-appearing. HENT: Head: Normocephalic and atraumatic. Right Ear: Tympanic membrane, ear canal and external ear normal. Left Ear: Tympanic membrane, ear canal and external ear normal. Nose: Nose normal. Mouth/Throat: Mouth: Mucous membranes are moist. Eyes: Extraocular Movements: Extraocular movements intact. Conjunctiva/sclera: Conjunctivae normal. Pupils: Pupils are equal, round, and reactive to light. Cardiovascular: Rate and Rhythm: Normal rate and regular rhythm. Heart sounds: Normal heart sounds. No murmur heard. Pulmonary: Effort: Pulmonary effort is normal. Breath sounds: Normal breath sounds. No wheezing. Chest: Chest wall: No tenderness. Abdominal: General: Bowel sounds are normal. Palpations: Abdomen is soft. There is no mass. Tenderness: There is no abdominal tenderness. There is no guarding or rebound. Musculoskeletal: General: No tenderness or deformity. Cervical back: Normal range of motion and neck supple. Lymphadenopathy: Cervical: No cervical adenopathy. Skin: General: Skin is warm and dry. Findings: No rash. Neurological: Mental Status: She is alert and oriented to person, place, and time. Mental status is at baseline. Deep Tendon Reflexes: Reflexes are normal and symmetric. Psychiatric: Mood and Affect: Mood normal. Behavior: Behavior normal. Thought Content: Thought content normal. Judgment: Judgment normal. Diagnoses and all orders for this visit: Diagnoses and all orders for this visit: Other ulcerative colitis with rectal bleeding (HCC) - Ambulatory referral to Gastroenterology; Future Anxiety now increase sertraline to 150 daily and call if want allison for counseling will see in 3 [address] Arango rx and recheck KAVITHA - propranoloL (INDERAL) 60 MG tablet; Take 1 (one) tablet (60 mg total) by mouth 2 (two) times a day . Fatigue, unspecified type - Comprehensive Metabolic Panel; Future - CBC and Differential - TSH; Future For any new medications prescribed today, patient was educated about indications for the medication, how to take the medication and potential side effects of the medications. Depression Screening 02/26/2021 Little interest or pleasure in doing things 0 Feeling down, depressed, or hopeless 1 PHQ-2 Total Score 1 Trouble falling or staying asleep, or sleeping too much 2 Feeling tired or having little energy 2 Poor appetite or overeating 2 Feeling bad about yourself - or that you are a failure or have let yourself or your family down 0 Trouble concentrating on things, such as reading the newspaper or watching television 0 Moving or speaking so slowly that other people could have noticed. Or the opposite - being so fidgety or restless that you have been moving around a lot more than usual 0 Thoughts that you would be better off , or of hurting yourself in some way 0 PHQ-9 Total Score 7 documented [facility] encounter [facility] Fat[facility], unspecified type [facility] Diagnosis Anxiety Anxiety state, unspecified [facility] Diagnosis Anxiety Anxiety state, unspecified [facility] Diagnosis Exudative tonsillitis- Primary Anxiety Anxiety state, unspecified [facility] Diagnosis Exudative tonsillitis- Primary Anxiety Anxiety state, unspecified [facility] Diagnosis 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 * Proctitis ([place]er) [facility] Purpose Family History No Family History Records FoundNo Family History Records FoundNo Family History Records FoundNo Family History Records FoundNo Family History Records FoundNo Family History Records FoundNo Family History Records FoundNo Family History Records Found Advance Directives No Advanced Directives Records FoundDocuments on File Type Date Recorded Patient Top Case Assembler Expl anation Advance Directives and Livin g Will 06/29/2019 2:34 PM Documents on File Type Date Recorded Patient Top Case Assembler Expl anation Advance Directives and Livin g Will 07/28/2019 12:32 PM Documents on File Type Date Recorded Patient Top Case Assembler Expl anation Advance Directives and Livin g Will 09/28/2019 12:23 PM Documents on File Type Date Recorded Patient Top Case Assembler Expl anation Advance Directives and Livin g Will 07/28/2019 12:32 PM Documents on File Type Date Recorded Patient Top Case Assembler Expl anation Advance Directives and Livin g Will 09/28/2019 12:23 PM Documents on File Type Date Recorded Patient Top Case Assembler Expl anation Advance Directives and Livin g Will 04/01/2021 1:42 PM History of Present Illness * Barbara Booth, FRENCH-BLAST FURNACE SUPERVISOR - 06/10/2018 3:10 PM EST Formatting of this note may be different from the original. History of Present Illness Gayla Longoria is a 23 y.o. female that presents to the office today with swollen lymph nodes located right armpit region with an onset of approx. 3 weeks ago. Patient is alert and oriented x 3 in no distress. Patient's states symptoms include currently tender at site - 4/10 pain level while patient denies symptoms of drainage, discoloration. Recent virus : no. Severity is mild and progression is improving. Relieving factors Currently on Bactrim BID for 10 days and Naproxen 500 mg BID. BLAST FURNACE SUPERVISOR requested 3 day follow up for re-evaluation of area. Gayla Longoria is a 23 y.o. female, here today for a evaluation of Insomnia. Any difficulty falling asleep? yes Any difficulty staying asleep? no She has tried the following medication(s) for sleep: Trazodone and Melatonin with no relief. 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 She describes the symptoms as difficulty falling asleep. She also complains of anxiety and fatigue. She denies frequent nighttime urination, hypnagogic hallucinations and unusual behavior during sleep. Gayla is currently prescribed paroxetine 20 mg and propranolol 80 mg daily - has not picked up scripts yet. Uncontrolled worrying and racing thoughts - no anxiety assessment due to has not started any medication PCP has prescribed to her. She understands she needs to start on medication for uncontrolled anxiety. Gayla stated she is to follow up on medication regimen 4-6 weeks after she starts taking medications. She currently is prescribed and taking hydroxyzine PRN - does help with anxiety symptoms acutely - does not provide any relief for sleeping. Past Medical History: Diagnosis Date Anxiety Colitis Migraine Outpatient Medications Prior to Visit Medication Sig Dispense Refill aluminum chloride (DRYSOL) 20 % Solution 1 Application by Topical route At bedtime.. hydrOXYzine HCl 25 MG Tab tablet Take 1 tablet by mouth 3 times daily as needed for Anxiety. 50 tablet 1 levonorgestrel-ethinyl estradiol 0.1-20 MG-MCG Tab tablet Take 1 tablet by mouth daily. 1 Package 5 naproxen 500 MG Tab tablet Take 1 tablet by mouth 2 times daily with meals. 60 tablet 0 sulfamethoxazole-trimethoprim (BACTRIM DS) 800-160 MG Tab per tablet Take 1 tablet by mouth 2 timesdaily for 10 days. 20 tablet 0 paroxetine 20 MG Tab tablet Take 1 tablet by mouth daily. (Patient not taking: Reported on 06/07/2018 ) 90 tablet 1 propranolol 80 MG Cap SR 24HR Take 1 capsule by mouth daily. (Patient not taking: Reported on 06/07/2018 ) 30 capsule 5 Cephalexin 500 MG Tab Take 500 mg by mouth every 6 hours. 10 days - Urgent Care on [address]/ traMADol 50 MG Tab tablet Take 50 mg by mouth every 8 hours as needed for Moderate Pain. No facility-administered medications prior to visit. No Known Allergies Social History Social History Marital status: Single Spouse name: N/A Number of children: N/A Years of education: N/A Occupational History Not on file. Social History Main Topics Smoking status: Current Every Day Smoker Types: Cigarettes Smokeless tobacco: Never Used Comment: 2-3 cigs/day Alcohol use Yes Comment: occ Drug use: No Sexual activity: Yes Other Topics Concern Not on file Social History Narrative No narrative on file Review of Systems Constitutional: Negative for appetite change, chills, diaphoresis, fatigue, fever and unexpected weight change. HENT: Negative for congestion, ear pain, hearing loss, rhinorrhea, sore throat and trouble swallowing. Eyes: Negative for pain, discharge, redness and visual disturbance. Respiratory: Negative for apnea, cough, choking, chest tightness, shortness of breath and wheezing. Cardiovascular: Negative for chest pain, palpitations and leg swelling. Gastrointestinal: Negative for abdominal distention, abdominal pain, anal bleeding, blood in stool,constipation, diarrhea and nausea. Endocrine: Negative. Genitourinary: Negative for decreased urine volume, difficulty urinating, dysuria, flank pain, frequency, hematuria and urgency. Musculoskeletal: Negative for arthralgias, back pain, gait problem, joint swelling, myalgias and neck pain. Skin: Negative. Allergic/Immunologic: Negative. Neurological: Negative for dizziness, tremors, syncope, weakness, light- headedness, numbness and headaches. Hematological: Positive for adenopathy (improving). Does not bruise/bleed easily. Psychiatric/Behavioral: Positive for sleep disturbance. Negative for agitation, behavioral problems, confusion, decreased concentration, dysphoric mood, hallucinations, self-injury and suicidal ideas. The patient is nervous/anxious. The patient is not hyperactive. Vitals: Blood pressure 118/72, pulse 85, temperature 98.9 ?F (37.2 ?C), temperature source Temporal, resp. rate 16, height 1.6 m (5' 2.99 ), weight 66 kg (145 lb 9.6 oz), last menstrual period 05/15/2018, SpO2 99 %. Physical Exam Constitutional: She is oriented to person, place, and time. She appears well- developed and well-nourished. Cardiovascular: Normal rate, regular rhythm and normal heart sounds. Pulmonary/Chest: Effort normal and breath sounds normal. Lymphadenopathy: She has axillary adenopathy. Right axillary: Lateral (firm, large grape size (improved), mild tenderness) adenopathy present. Nopectoral adenopathy present. Neurological: She is alert and oriented to person, place, and time. Skin: Rash noted. Rash is maculopapular. Psychiatric: Her speech is normal and behavior is normal. Judgment and thought content normal. Her mood appears anxious. Cognition and memory are normal. She does not exhibit a depressed mood. She isattentive. Nursing note and vitals reviewed. Neurologic Exam Mental Status Oriented to person, place, and time. Speech: speech is normal Assessment and Plan 1. Primary insomnia The problem of recurrent insomnia is discussed. Avoidance of caffeine sources is strongly encouraged. Sleep hygiene issues are reviewed. The use of sedative hypnotics for temporary relief is appropriate; we discussed the addictive nature of these drugs. Discussed risks (side effects) and benefits of medication & encouraged to read about medication and take meds as directed. - zolpidem 10 MG Tab tablet; Take 1 tablet by mouth at bedtime. Dispense: 30 tablet; Refill: 2 2. Lymphadenopathy Improving, will continue current meds. 3. Eczema, unspecified type Sample of Eucrisa given and instructed on use. Discussed risks (side effects) and benefits of medication & encouraged to read about medication and take meds as directed. Return to clinic if symptoms worsen or fail to improve. * Keerthi Ansari LPN - 06/10/2018 3:10 PM SERA Longoria is a 23 y.o. female that presents to the office today with swollen lymph nodes located right armpit region with an onset of approx. 3 weeks ago. Patient is alert and oriented x 3 in no distress. Patient's states symptoms include currently tender at site - 4/10 pain level while patient denies symptoms of drainage, discoloration. Recent virus : no. Severity is mild and progression is improving. Relieving factors Currently on Bactrim BID for 10 days and Naproxen 500 mg BID. BLAST FURNACE SUPERVISOR requested 3 day follow up for re-evaluation of area. Gayla Longoria is a 23 y.o. female, here today for a evaluation of Insomnia. Any difficulty falling asleep? yes Any difficulty staying asleep? no She has tried the following medication(s) for sleep: Trazodone and Melatonin with no relief. Trazodone had reverse effect - she has been using Benadryl [facility]. She describes the symptoms as difficulty falling asleep. She also complains of anxiety and fatigue. She denies frequent nighttime urination, hypnagogic hallucinations and unusual behavior during sleep. Gayla is currently prescribed paroxetine 20 mg and propranolol 80 mg daily - has not picked up scripts yet. Uncontrolled worrying and racing thoughts - no anxiety assessment due to has not started any medication PCP has prescribed to her. She understands she needs to start on medication for uncontrolled anxiety. Gayla stated she is to follow up on medication regimen 4-6 weeks after she starts taking medications. She currently is prescribed and taking hydroxyzine PRN - does help with anxiety symptoms acutely - does not provide any relief for sleeping. in this encounter* Barbara Booth APRN-SARITHA - 06/07/2018 2:10 PM EST Formatting of this note may be different from the original. History of Present Illness Gayla Longoria is a 23 y.o. year old female noted skin lesion(s) - right armpit region - lump for approx 3 weeks - Urgent Care tx 06-03-18 - dx with infected lymph node - prescribed Keflex and tramadol with no relief. she is requesting for evaluation on the right armpit area of extremity with no changes of improvement. Observations by patient are history of lesion unknown, observed 3 weeks ago, painful with tenderness, approx quarter size according to patient - raised above skin, painful when palpated or arm at side 5/10 pain level -no discoloration of area, no itching, drainage. Gayla denies increasing diameter,size since first observation. History of skin lesion removal: no History of dermatology evaluation: no History of medications/treatments: - Keflex and tramadol - using Benadryl with Keflex due to itching sensation with ATB treatment. Past Medical History: Diagnosis Date Anxiety Colitis Migraine Outpatient Medications Prior to Visit Medication Sig Dispense Refill aluminum chloride (DRYSOL) 20 % Solution 1 Application by Topical route At bedtime.. hydrOXYzine HCl 25 MG Tab tablet Take 1 tablet by mouth 3 times daily as needed for Anxiety. 50 tablet 1 levonorgestrel-ethinyl estradiol 0.1-20 MG-MCG Tab tablet Take 1 tablet by mouth daily. 1 Package 5 paroxetine 20 MG Tab tablet Take 1 tablet by mouth daily. (Patient not taking: Reported on 06/07/2018 ) 90 tablet 1 propranolol 80 MG Cap SR 24HR Take 1 capsule by mouth daily. (Patient not taking: Reported on 06/07/2018 ) 30 capsule 5 No facility-administered medications prior to visit. No Known Allergies Social History Social History Marital status: Single Spouse name: N/A Number of children: N/A Years of education: N/A Occupational History Not on file. Social History Main Topics Smoking status: Current Every Day Smoker Types: Cigarettes Smokeless tobacco: Never Used Comment: 2-3 cigs/day Alcohol use Yes Comment: occ Drug use: No Sexual activity: Yes Other Topics Concern Not on file Social History Narrative No narrative on file Review of Systems Constitutional: Negative for appetite change, chills, diaphoresis, fatigue, fever and unexpected weight change. HENT: Negative for congestion, ear pain, hearing loss, rhinorrhea, sore throat and trouble swallowing. Eyes: Negative for pain, discharge, redness and visual disturbance. Respiratory: Negative for apnea, cough, choking, chest tightness, shortness of breath and wheezing. Cardiovascular: Negative for chest pain, palpitations and leg swelling. Gastrointestinal: Negative for abdominal distention, abdominal pain, anal bleeding, blood in stool,constipation, diarrhea and nausea. Endocrine: Negative. Genitourinary: Negative for decreased urine volume, difficulty urinating, dysuria, flank pain, frequency, hematuria and urgency. Musculoskeletal: Negative for arthralgias, back pain, gait problem, joint swelling, myalgias and neck pain. Skin: Enlarged, hard lump under right axilla. Allergic/Immunologic: Negative. Neurological: Negative for dizziness, tremors, syncope, weakness, light- headedness, numbness and headaches. Hematological: Negative. Psychiatric/Behavioral: Negative. Vitals: Blood pressure 118/80, pulse 90, temperature 98.6 F (37 C), temperature source Temporal, resp. rate 18, height 1.6 m (5' 2.99 ), weight 66 kg (145 lb 9.6 oz), last menstrual period 05/15/2018, SpO2 99 %. Physical Exam Constitutional: She appears well-developed and well-nourished. Lymphadenopathy: She has axillary adenopathy. Right axillary: Lateral adenopathy present. No pectoral adenopathy present. Left axillary: No pectoral and no lateral adenopathy present. Large grape size hard, tender lymph node palpated under right axilla Nursing note and vitals reviewed. Assessment and Plan 1. Lymphadenopathy Discussed differential diagnoses and possible causes. Unable to differentiate between infection vs inflammation. Will stop Keflex as she has been on for 4 days without improvement. Will start on Bactrim and Naproxen. Discussed risks (side effects) and benefits of medication & encouraged to readabout medication and take meds as directed. - sulfamethoxazole-trimethoprim (BACTRIM DS) 800-160 MG Tab per tablet; Take 1 tablet by mouth 2 times daily for 10 days. Dispense: 20 tablet; Refill: 0 - naproxen 500 MG Tab tablet; Take 1 tablet by mouth 2 times daily with meals. Dispense: 60 tablet;Refill: 0 Follow up in 3 days or sooner prn. * Keerthi Ansari, REGULATORY LAW SPECIALIST - 06/07/2018 2:10 PM SERA Gayla Longoria is a 23 y.o. year old female noted skin lesion(s) - right armpit region - lump for approx 3 weeks - Urgent Care tx 06-03-18 - dx with infected lymph node - prescribed Keflex and tramadol with no relief. she is requesting for evaluation on the right armpit area of extremity with no changes of improvement. Observations by patient are history of lesion unknown, observed 3 weeks ago, painful with tenderness, approx quarter size according to patient - raised above skin, painful when palpated or arm at side 5/10 pain level -no discoloration of area, no itching, drainage. Gayla denies increasing diameter,size since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 does not meet criteria for a simple cyst (image number 34, series 2). Remaining solid organs and gallbladder are unremarkable in appearance. PELVIC CT FINDINGS: The uterus, ovaries, and urinary bladder are unremarkable. Small trace amount of physiologic free fluid in the cul-de-sac suspected. No bowel obstruction. Questionable mild circumferential thickening of the descending colon. No significant distention or surrounding fatty stranding identified. No acute osseous abnormality. IMPRESSION: 1. Some questionable mild circumferential thickening of the descending colon. No significant surrounding fatty stranding identified, and alternatively this may correspond to a partially collapsed normal colon. Given patient's history, if this is of further clinical concern, correlation with endoscopy may be helpful. No mechanical obstruction identified. The appendix is normal. 2. Previously described low-attenuation lesion in the anterior segment of the right hepatic lobe appears to have some peripheral subtle enhancement, favoring the possibility of a hemangioma, although this is not definitive. The lesion is not significantly changed in size and is likely benign. 3. New tiny low-attenuation lesion in the anterior cortex of the left superior renal pole, measuring 9 mm, does not meet criteria for a cyst. Precautionary correlation with renal ultrasound or renal protocol MRI may be helpful. 4. Small, trace amount of physiologic free fluid in the cul-de-sac. The remainder of the exam is unremarkable YES NO [x] [] Change in bowel habits? [] [x] Constipation [x] [] Diarrhea? [x] [] Blood in stool? [x] [] Mucus in your stool? [] [x] Decrease in caliber of your stool? [] [x] Heme positive stool [] [x] Have you recently been diagnosed with anemia by your family doctor? [] [x] Do you have any family members with a history of Colon Cancer? Only relatives with colon cancer is a grand aunt Past Histories: Allergies: Keflex [cephalexin] Patient's Medications New Prescriptions No medications on file Previous Medications CIPROFLOXACIN HCL (CIPRO) 250 MG TABLET Take 2 (two) tablets (500 mg total) by mouth 2 (two) times a day Take one tablet twice daily for 7 days. Dispense 14 tablets. . IBUPROFEN (ADVIL,MOTRIN) 800 MG TABLET Take 1 (one) tablet (800 mg total) by mouth every 6 (six) hours as needed for pain . METRONIDAZOLE (FLAGYL) 500 MG TABLET Take 1 (one) tablet (500 mg total) by mouth 3 (three) times a day with meals . PROPANTHELINE (PROBANTHINE) 15 MG TABLET Take 60 mg by mouth once . SERTRALINE (ZOLOFT) 25 MG TABLET Take 25 mg by mouth daily . Modified Medications No medications on file Discontinued Medications No medications on file Patient Active Problem List Diagnosis History of ulcerative colitis Change in bowel habit Diarrhea Blood in stool Mucus in stool Past Medical History: Diagnosis Date Ulcerative colitis (HCC) Past Surgical History: Procedure Laterality Date COLONOSCOPY W/ BIOPSIES 08/03/2014 colitis...Luis Social History Socioeconomic History Marital status: Single Spouse name: Not on file Number of children: Not on file Years of education: Not on file Highest education level: Not on file Occupational History Not on file Social Needs Financial resource strain: Not on file Food insecurity Worry: Not on file Inability: Not on file Transportation needs Medical: Not on file Non-medical: Not on file Tobacco Use Smoking status: Current Some Day Smoker Smokeless tobacco: Never Used Substance and Sexual Activity Alcohol use: Yes Comment: occasional Drug use: Never Sexual activity: Not on file Lifestyle Physical activity Days per week: Not on file Minutes per session: Not on file Stress: Not on file Relationships Social connections Talks on phone: Not on file Gets together: Not on file Attends hoahaoism service: Not on file Active member of club or organization: Not on file Attends meetings of clubs or organizations: Not on file Relationship status: Not on file Other Topics Concern Not on file Social History Narrative Not on file REVIEW OF SYSTEMS Pertinent positives and negatives are listed in HPI, PMSH, SH, ALL above and in Details below. See scanned patient ROS questionnaire for specific details The following systems were reviewed: [x] Const (fevers, chills, wt. loss, fatigue) [x] CV (HTN, CP, KAUFFMAN, edema, DVT) [x] Resp (SOB, pleurisy, asthma, apnea) [x] GI (N, V, D, C, M, abd pain, appetite) [x] Musc (back pain, joint stiffness, gout) [x] Neuro (seizures, syncope, paralysis) [x] Psych (depression, anxiety) [x] Endo (hot/cold intol, polyuria[DM]) [x] Hem/Lymph (Anemia, LA, bleeding) [x] Allerg/Immun (seasonal, immuniz) [x] Eyes (diplopia, cataracts) [x] ENT/mouth (dysphagia, epistaxis) [x] (dysuria, hematuria) [x] Skin/Breast (moles, rash, lumps, nipple changes) Details: Single Data Unavailable Social History Tobacco Use Smoking Status Current Some Day Smoker Smokeless Tobacco Never Used Social History Substance and Sexual Activity Alcohol Use Yes Comment: occasional Social History Substance and Sexual Activity Drug Use Never Family History Problem Relation Age of Onset Ulcerative colitis Maternal Aunt Crohn's disease Paternal Cousin Crohn's disease Paternal Cousin Physical Exam: BP 119/86 (BP Location: Left arm, Patient Position: Sitting, BP Cuff Size: Adult) Pulse 89 Temp 97.8 F (36.6 C) (Oral) Resp 16 Ht 5' 3 Wt 66.7 kg (147 lb) SpO2 96% BMI 26.04 kg/m Body mass index is 26.04 kg/m . HEENT normocephalic atraumatic no scleral icterus pupils equal round reactive extraocular movements are intact moist mucous membrane good dental occlusion tongue is midline. Neck is supple, trach is midline, no thyromegaly, JVD, bruits or masses are noted. Chest bilateral breath sounds without wheezes or rales. CV regular rate without murmur, gallop or rub. Abdomen is soft, nontender, nondistended without peritoneal signs, guarding, rebound, organomegaly or mass. exam reveals normal external genitalia without overt hernia. Lymphatic exam is without supraclavicular, cervical, axillary or inguinal lymphadenopathy. Extremities show no gross clubbing, cyanosis, edema, mottling or deformity. Neurologically alert, oriented, cranial nerves II through XII are intact with no focal motor or sensory deficits noted. There is a normal gait patient is well-balanced while walking Assessment: Change in bowel habit diarrhea blood and mucus in his stool in a patient diagnosed with inflammatory bowel disease consistent with ulcerative colitis August 03, 2014 at which time she was placed on balsalazide 750 4 times daily and prednisone which she discontinued after a year of use as she was feeling well. Obviously at this point in time I think it is important to reestablish the diagnosis and rule out concurrent malignancy with a colonoscopy prior to restarting treatment. Plan: Colonoscopy using routine MiraLAX bowel prep avoiding nonsteroidal inflammatories for a week prior to the study. Risks complications and alternatives of been discussed at length with the patient understands and wishes to proceed 1. History of ulcerative colitis 2. Change in bowel habit 3. Diarrhea, unspecified type 4. Blood in stool 5. Mucus in stool No orders of the defined types were placed in this encounter. Nikhil Carlos MD documented in this encounter Grace Fair RN - 07/28/2019 3:28 PM ESTSMary Kate howard RN - 07/28/2019 1:15 PM EST Nursing Notes (unrecognized section and content) [facility]ci teaching completed. Printed copy given to pt. Mom Chantel driving patient home documented in this encounter Op Note - Nikhil Carlos MD - 07/28/2019 3:24 PM EST Miscellaneous Notes (unrecog nized section and content) GAYLA LONGORIA [facility] [id number] 1995 DATE 07/28/2019 OPERATIVE REPORT SURGEON NIKHIL CARLOS MD, [facility] PREOPERATIVE DIAGNOSES 1. Personal history of previously diagnosed ulcerative colitis, July of 2014, in a patient who has not been on medications for several years. 2. Change in bowel habit, diarrhea, blood and mucus and lower abdominal discomfort. POSTOPERATIVE DIAGNOSES Inflammation from anorectal verge, most intense in rectum, less so in sigmoid and descending colon, resolved by the splenic flexure with fairly normal appearing, but only subtly inflamed more proximal colon. PROCEDURE PERFORMED Colonoscopy with biopsies of cecum, ascending colon, hepatic flexure, proximal transverse colon, distal transverse colon, splenic flexure, descending colon, sigmoid colon, and finally rectum. SEDATION Per Anesthesia. Fentanyl 100 mcg, Versed 2 mg, propofol 600 mg. COMPLICATIONS None apparent. FINDINGS AND PROCEDURE The patient was brought to the endoscopy suite where routine monitoring equipment was placed. Incremental doses of fentanyl, Versed, and propofol were administered per Anesthesia for conscious sedation purposes. Utilizing the pediatric colonoscope, the scope was introduced per anus. Immediately apparent was intense inflammation of her rectum, less so in her sigmoid colon and even less so in her descending splenic flexure region. The scope was advanced through the transverse colon around the hepatic flexure, down the ascending colon and into the cap of the cecum as identified by transillumination of the abdominal wall, identification of the ileocecal valve, convergence of the tenia coli, finger indentation, identification of the appendiceal orifice. I attempted to intubate the terminal ileum, but could not get a successful angle. Nonetheless, there was minimal inflammation in the more proximal bowel. I began to then take sequential biopsies first in the cecum, then the ascending colon, hepatic flexure, proximal transverse colon and distal transverse colon, as I withdrew in fairly normal bowel, although a couple subtle areas of inflammation were noted. Once I reached the splenic flexure, I took biopsies there and the inflammation began to progressively worsen down the descending colon, where biopsies were taken, sigmoid colon where biopsies were taken, and ultimately in the rectum where the most intense inflammation existed. With that, the scope was withdrawn. The patient tolerated the procedure well, was taken to the recovery room in stable condition. She has been advised to follow up with me in 10 to 14 days to make arrangements for ongoing management based on pathology reports. NIKHIL CARLOS MD, FACS D 07/28/2019 15:02 [id number] T 07/28/2019 15:19 DED/MODL cc KAVITHA ATKINS PA-C : documented in this encounter Care Teams (unrecognized sec tion and content) Enterprise Security Architect Relationship Specialty Start Date End Date Nikhil Navarrete, DO [address] [place] [address] PCP - General Family Medicine 01/15/21 Enterprise Security Architect Relationship Specialty Start Date End Date Nikhil Navarrete, DO [address] [place] [address] PCP - General Family Medicine 01/15/21 Enterprise Security Architect Relationship Specialty Start Date End Date Nikhil Navarrete, DO [address] [place] [address] PCP - General Family Medicine 01/15/21 Enterprise Security Architect Relationship Specialty Start Date End Date Nikhil Navarrete, DO [address] [place] [address] PCP - General Family Medicine 01/15/21 Enterprise Security Architect Relationship Specialty Start Date End Date Nikhil Navarrete DO [address] [place] [address] PCP - General Family Medicine 01/15/21 Enterprise Security Architect Relationship Specialty Start Date End Date Nikhil Navarrete DO [address] [place] [address] PCP - General Family Medicine 06/15/22 Scheduled Active and Recently Administ ered Medications (unrecognized section and content) FOR RECORDS PERTAINING TO PATIENTS WHO ARE OR HAVE BEEN ENROLLED IN A CHEMICAL DEPENDENCY/SUBSTANCEABUSE PROGRAM, SOME INFORMATION MAY BE OMITTED. This clinical summary was aggregated from multiple sources. Caution should be exercised in using it in the provision of clinical care. This summary normalizes information from multiple sources, and as a consequence, information in this document may materially change the coding, format and clinical context of patient data. In addition, data may be omitted in some cases. CLINICAL DECISIONS SHOULD BE BASED ON THE PRIMARY CLINICAL RECORDS. [employer] provides no warranty or guarantee of the accuracy or completeness of information in this document.
[2023-07-25 11:04] LABS: Internal QC Validated? YES +Cl - CLEAR BKGD; Pregnancy, Serum, hCG Quali. NEGATIVE Negative
[2023-07-25 11:13] LABS: ALB/GLOB Ratio 0.7 RATIO (0.9-2.4); AST(SGOT) 12 U/L (15-37); Alanine Aminotransfer ALT/SGPT 18 U/L (13-56); Albumin, Serum 2.6 g/dL (3.2-5.0); Alkaline Phosphatase 103 U/L (45-117); Anion Gap 6 (5-15); BUN 5 mg/dL (7-18); BUN/Creat Ratio 7.1 RATIO (10-20); Calcium,Total 8.4 mg/dL (8.5-10.1); Chloride 108 mmol/L (98-107); Creatinine, Serum 0.71 mg/dL (0.55-1.02); EST Glomerular Filtration Rate 105 mL/min (>60); Est Glom Filt Rate - Afr Amer 128 mL/min (>60); Estimated Creatinine Clearance 98.46 ml/min; Globulin 3.7 g/dL (2.2-4.2); Glucose 100 mg/dL (74-106); Lipase 19 U/L (13-75); Potassium 3.2 mmol/L (3.5-5.1); Protein, Total 6.3 g/dL (6.4-8.2); Sodium Level 141 mmol/L (136-145)
[2023-07-25 12:05] VITALS: RESP 16
[2023-07-25 12:34] VITALS: BP 112/68; PULSE 87; RESP 16; O2SAT 100
[2023-07-25] MEDS: Budesonide 3 MG CAPSULE.EC 9 MG PO (12:58)
== END 2023-07-25 13:00 | disposition home or self-care (01) ==
PROVIDERS: Emergency Provider Emergency Medicine; PCP Family Medicine; Visit Provider Emergency Medicine
DX: K51.90 Ulcerative colitis, unspecified, without complications (principal)
CPT/HCPCS: 74177; 80053; 83690; 84703; 85025; 96360; 96361; 99283; J7030; Q9967; A4216

== ENCOUNTER → 2023-08-20 | Outpatient (CLI) | payer BC, MEDICAID, SELFPAY ==
--- OUTSIDE RECORDS SUMMARY | 2023-08-20 18:36 | XMS RPT_ITS | CCD ---
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 planning to try her on Remicade and put her on prednisone but she got admitted to the hospital secondary was found to have a positive stool test for C. difficile negative Echo test), we did a colonoscopy that showed severe ulcerations with diffuse pancolitis we had her on IV steroids and we gave her the first dose of Remicade during the hospitalization and she is here for follow-up. She said she feels significantly better since she has been out of the hospital. She continues to take prednisone 40 mg she is finishing up her vancomycin today but she said that she is much better. She is down to having 3 or 4 bowel movements a day with only occasional abdominal pain for which she takes Breckenridge very rarely. She was contacted by the infusion center today and she will be scheduled for an infusion. Her [id number] and her baby were with her today and they said that she is much better. Review of Systems Review of Systems Constitutional: Negative. Respiratory: Negative. Cardiovascular: Negative. Musculoskeletal: Negative. Skin: Negative. Past Medical History has no past medical history on file. Social History reports that she has never smoked. She has never used smokeless tobacco. She reports that she does not drink alcohol and does not use drugs. Family History family history includes Colon cancer in her mother's sister. Allergies Allergies Allergen Reactions Cephalexin Itching and Rash Medications Current Outpatient Medications Medication Instructions cholestyramine light (Prevalite) 4 gram packet 4 g, oral, 2 times daily with meals HYDROcodone-acetaminophen (Breckenridge) 5-325 mg tablet 1 tablet, oral, Every 6 hours PRN ondansetron ODT (Zofran-ODT) 4 mg disintegrating tablet DISSOLVE 1 TABLET ON THE TONGUE EVERY 4 HOURS NEEDED FOR NAUSEA AND/OR VOMITING predniSONE (DELTASONE) 40 mg, oral, Daily, Take by mouth as directed sertraline (ZOLOFT) 25 mg vancomycin (VANCOCIN) 125 mg, oral, 4 times daily Objective There were no vitals taken for this visit. Physical Exam Vitals reviewed. Constitutional: Appearance: Normal appearance. Cardiovascular: Rate and Rhythm: Normal rate and regular rhythm. Pulses: Normal pulses. Pulmonary: Effort: Pulmonary effort is normal. Breath sounds: Normal breath sounds. Abdominal: General: Abdomen is flat. Bowel sounds are normal. There is no distension. Palpations: Abdomen is soft. Tenderness: There is no abdominal tenderness. Musculoskeletal: General: Normal range of motion. Neurological: Mental Status: She is alert. Assessment/Plan Ora Longoria is a 28 y.o. female who presents to GI clinic for follow-up. She had a flareup of severe ulcerative colitis after her delivery requiring hospitalization when she was found to have C. difficile. Her colonoscopy showed that she had severe active colitis most likely caused by the ulcerative colitis rather than the C. difficile colitis so I had aggressively treated her during the hospitalization with IV steroids as well as started her on Remicade as an inpatient with significant improvement. She looks so much better today and she is significantly improved. Plan. Will finish up the course of vancomycin today. Continue on prednisone 40 for another week and then cut down to 20 mg next week after the second infusion. I told her to continue on 20 for a month and then to cut it down to 10 mg. She will schedule her infusions. Follow-up with me in 2 months. We will consider adding either azathioprine or 6-MP during the next visit in order to prevent antibody formation. I will give her an order to do blood work before her next appointment. Darius Monsalve MD documented in this encounter [facility] Work Phone: 08-06-2023 Note Formatting of this n ote might be different from the original. Patient's pain medication sent to preferred pharmacy electronically. [facility] Work Phone: 08-06-2023 Miscellaneous Notes Patient's pain medication sent to preferred pharmacy electronically. The patient's goals for the shift include The clinical goals for the shift include Patient will verbalize decrease abdominal discomforts Problem: Pain Goal: My pain/discomfort is manageable Outcome: Progressing Problem: Safety Goal: Patient will be injury free during hospitalization Outcome: Progressing Goal: I will remain free of falls Outcome: Progressing Problem: Daily Care Goal: Daily care needs are met Outcome: Progressing Problem: Psychosocial Needs Goal: Demonstrates ability to cope with hospitalization/illness Outcome: Progressing Goal: Collaborate with me, my family, and caregiver to identify my specific goals Outcome: Progressing Problem: Discharge Barriers Goal: My discharge needs are met Outcome: Progressing Problem: Pain Goal: Walks with improved pain control throughout the shift Outcome: Progressing Goal: Performs ADL's with improved pain control throughout shift Outcome: Progressing Goal: Free from opioid side effects throughout the shift Outcome: Progressing Goal: Free from acute confusion related to pain meds throughout the shift Outcome: Progressing The patient's goals for the shift include decrease abdominal pain The clinical goals for the shift include Patient will be able to manage her pain level by the end of shift. Problem: Pain Goal: My pain/discomfort is manageable Outcome: Progressing Problem: Safety Goal: Patient will be injury free during hospitalization Outcome: Progressing Goal: I will remain free of falls Outcome: Progressing Problem: Psychosocial Needs Goal: Demonstrates ability to cope with hospitalization/illness Outcome: Progressing Goal: Collaborate with me, my family, and caregiver to identify my specific goals Outcome: Progressing The patient's goals for the shift include The clinical goals for the shift include Patient will have no infusion reaction during medication administration Over the shift, the patient did not make progress toward the following goals. Patient will be able to manage her pain level. The patient's goals for the shift include The clinical goals for the shift include maintain safety, provide comfort, pain management Problem: Pain Goal: My pain/discomfort is manageable Outcome: Progressing Problem: Safety Goal: Patient will be injury free during hospitalization Outcome: Progressing Goal: I will remain free of falls Outcome: Progressing Problem: Daily Care Goal: Daily care needs are met Outcome: Progressing Problem: Psychosocial Needs Goal: Demonstrates ability to cope with hospitalization/illness Outcome: Progressing Goal: Collaborate with me, my family, and caregiver to identify my specific goals Outcome: Progressing Problem: Discharge Barriers Goal: My discharge needs are met Outcome: Progressing Problem: Pain Goal: Walks with improved pain control throughout the shift Outcome: Progressing Goal: Performs ADL's with improved pain control throughout shift Outcome: Progressing Goal: Free from opioid side effects throughout the shift Outcome: Progressing Goal: Free from acute confusion related to pain meds throughout the shift Outcome: Progressing PATIENT: ORA LONGORIA : 1995 ADMIT DATE: 07/28/2023 9:50 PM DISCH DATE: RESPONDING PROVIDER #: [id number] PROVIDER RESPONSE TEXT: Ulcerative pancolitis is clinically significant and required treatment/monitoring CDI QUERY TEXT: [facility]_Abnormal Studies Instruction: Based on your assessment of the patient and the clinical information, please provide the requested documentation by clicking on the appropriate radio button and enter any additional information if prompted. Question: Is there a diagnosis indicative of the lab values or image study When answering this query, please exercise your independent professional judgment. The fact that a question is being asked, does not imply that any particular answer is desired or expected. The patient's clinical indicators include: Clinical Information: 28 yo with history of ulcerative colitis presenting with abdominal pain Clinical Indicators: H and P Colitis , blood in stool , CT Extensive concentric wall thickening and mucosal enhancement of the length of the colon from the ascending colon to the rectum with fluid in the nondilated colon suggesting an acute infectious or inflammatory colitis , Crohn's disease or ulcerative colitis are considerations 07/28/23 WBCs 19.5 CRP 37.55 GI consult 07/29/23 She mentions having a temperature of 102 on 07/24/2023, 1 episode of vomiting with significant left lower quadrant pain. Treatment: GI consult, LR bolus 1000 mls, IV NS bolus 1000 mls, IV Zosyn, IV methylprednisolone, zofran, lab monitoring Risk Factors: history of ulcerative colitis, weeks PP Options provided: -- Ulcerative pancolitis is clinically significant and required treatment/monitoring -- Infectious colitis is clinically significant and required treatment/monitoring -- Enterocolitis is clinically significant and required treatment/monitoring -- Ulcerative colitis not requiring treatment or evaluation -- Other - I will add my own diagnosis -- Refer to Clinical Documentation Reviewer Query created by: Chrissy Mata on 08/02/2023 11:32 AM Electronically signed by: AURELIANO DOWELL MD 08/03/2023 2:09 PM Problem: Pain Goal: My pain/discomfort is manageable Outcome: Progressing The patient's goals for the shift include to be pain free. The clinical goals for the shift include decrease in pain and to have less bloody bowel movements. Problem: Safety Goal: Patient will be injury free during hospitalization Outcome: Progressing Goal: Patient to remain free of falls Outcome: Progressing The patient's goals for the shift include feel better The clinical goals for the shift include pain management Problem: Pain Goal: My pain/discomfort is manageable Outcome: Progressing Problem: Safety Goal: Patient will be injury free during hospitalization Outcome: Progressing Goal: I will remain free of falls Outcome: Progressing Problem: Daily Care Goal: Daily care needs are met Outcome: Progressing Problem: Pain Goal: Walks with improved pain control throughout the shift Outcome: Progressing Goal: Performs ADL's with improved pain control throughout shift Outcome: Progressing Goal: Free from opioid side effects throughout the shift Outcome: Progressing Goal: Free from acute confusion related to pain meds throughout the shift Outcome: Progressing The patient's goals for the shift include little to no abdominal discomforts The clinical goals for the shift include will verbalizes manageable pain level Problem: Pain Goal: My pain/discomfort is manageable 08/01/2023 023 by Patience Cantrell RN Outcome: Progressing 08/01/2023230 by Patience Cantrell RN Outcome: Progressing Problem: Safety Goal: Patient will be injury free during hospitalization 08/01/2023 023 by Patience Cantrell RN Outcome: Progressing 08/01/2023230 by Patience Cantrell RN Outcome: Progressing Goal: I will remain free of falls 08/01/2023230 by Patience Cantrell RN Outcome: Progressing 08/01/2023230 by Patience Cantrell RN Outcome: Progressing The patient's goals for the shift include The clinical goals for the shift include Provide comfort, promote rest, maintain safety. Problem: Pain Goal: My pain/discomfort is manageable Outcome: Progressing Problem: Safety Goal: Patient will be injury free during hospitalization Outcome: Progressing Goal: I will remain free of falls Outcome: Progressing Problem: Daily Care Goal: Daily care needs are met Outcome: Progressing Problem: Psychosocial Needs Goal: Demonstrates ability to cope with hospitalization/illness Outcome: Progressing Goal: Collaborate with me, my family, and caregiver to identify my specific goals Outcome: Progressing Problem: Discharge Barriers Goal: My discharge needs are met Outcome: Progressing The patient's goals for the shift include The clinical goals for the shift include Provide comfort, promote rest, maintain safety. Problem: Pain Goal: My pain/discomfort is manageable Outcome: Progressing Problem: Safety Goal: Patient will be injury free during hospitalization Outcome: Progressing Goal: I will remain free of falls Outcome: Progressing Problem: Daily Care Goal: Daily care needs are met Outcome: Progressing Problem: Psychosocial Needs Goal: Demonstrates ability to cope with hospitalization/illness Outcome: Progressing Goal: Collaborate with me, my family, and caregiver to identify my specific goals Outcome: Progressing Problem: Discharge Barriers Goal: My discharge needs are met Outcome: Progressing Gastroenterology Chart Update Colonoscopy by Dr Monsalve and Dr Moreira Severe pancolonic abnormal mucosa, consistent with ulcerative colitis; performed cold forceps biopsy to rule out IBD. Olguin score 3 with most severe disease in L colon with large deep ulcerations but contiguous inflammation erythema from rectum to cecum. Inability to intubate terminal ileum due to inflammation. No pseudomembranes. Concern symptoms are primarily related to underlying inflammatory bowel disease. PLAN Recommend solumedrol 20 mg TID Will order labs for Remicade initiation Continue with vancomycin dosing Okay for clear liquid diet GI to follow Lucina Lee PA-C The patient's goals for the shift include The clinical goals for the shift include Provide comfort, bowel prep Problem: Pain Goal: My pain/discomfort is manageable Outcome: Progressing Problem: Safety Goal: Patient will be injury free during hospitalization Outcome: Progressing Goal: I will remain free of falls Outcome: Progressing Problem: Daily Care Goal: Daily care needs are met Outcome: Progressing Problem: Psychosocial Needs Goal: Demonstrates ability to cope with hospitalization/illness Outcome: Progressing Goal: Collaborate with me, my family, and caregiver to identify my specific goals Outcome: Progressing Flowsheets (Taken 07/29/20232121) Cultural Requests During Hospitalization: N/A Spiritual Requests During Hospitalization: N/A Problem: Discharge Barriers Goal: My discharge needs are met Outcome: Progressing documented in this encounter [facility] Work Phone: 08-06-2023 History of Present illness Narrative Ora Longoria is a 28 y.o. female on day 8 of admission presenting with Colitis. Subjective Overall feeling better, tolerating PO diet. Diarrhea improved. Ready to go home. I was asked by Dr. Bernal to discharge patient home. Objective Physical Exam HENT: Head: Normocephalic. Mouth/Throat: Mouth: Mucous membranes are moist. Eyes: Extraocular Movements: Extraocular movements intact. Cardiovascular: Rate and Rhythm: Normal rate and regular rhythm. Pulmonary: Effort: Pulmonary effort is normal. Breath sounds: Normal breath sounds. Abdominal: General: Bowel sounds are normal. Palpations: Abdomen is soft. Skin: General: Skin is warm and dry. Neurological: General: No focal deficit present. Mental Status: She is alert and oriented to person, place, and time. Psychiatric: Mood and Affect: Mood normal. Last Recorded Vitals Blood pressure (!) 179/98, pulse 58, temperature 36.5 C (97.7 F), resp. rate 14, height 1.6 m (5' 3 ), weight 79.8 kg (176 lb), SpO2 94 %, currently . Intake/Output last 3 Shifts: I/O last 3 completed shifts: In: 6318.3 (79.1 mL/kg) [P.O.:1250; I.V.:4818.3 (60.4 mL/kg); IV Piggyback:250] Out: - (0 mL/kg) Weight: 79.8 kg This patient currently has cardiac telemetry ordered; if you would like to modify or discontinue the telemetry order, click here to go to the orders activity to modify/discontinue the order. Assessment/Plan Principal Problem: Colitis Patient will be discharged. Follow up with GI next week. Prescriptions sent to pharmacy I spent 20 minutes in the professional and overall care of this patient. LAMIN Narvaez Ora Longoria is a 28 y.o. female on day 7 of admission presenting with Colitis. Subjective Seen today she is received her first round of Remicade her first dose. Getting better symptomatically she is on prednisone 40 mg daily and the instruction is to take 40 mg of prednisone daily over the next 2 months upon discharge. Broken finish off 10-day course of Vanco for C. difficile continue with her other medications as well Objective Last Recorded Vitals BP (!) 163/98 (BP Location: Left arm, Patient Position: Lying) Pulse 60 Temp 36.4 C (97.5 F) (Temporal) Resp 12 Wt 79.8 kg (176 lb) SpO2 96% Yes Intake/Output last 3 Shifts: Intake/Output Summary (Last 24 hours) at 08/05/2023 1838 Last data filed at 08/05/2023 0700 Gross per 24 hour Intake 2741.67 ml Output -- Net 2741.67 ml Admission Weight Weight: 79.8 kg (176 lb) (07/28/23 1922) Daily Weight 07/28/23 : 79.8 kg (176 lb) Image Results CT abdomen pelvis w IV contrast Narrative: STUDY: CT Abdomen and Pelvis with IV Contrast; 07/29/2023 at 2:39 AM INDICATION: UC, bleeding with pain. COMPARISON: None available. ACCESSION NUMBER(S): [id number] ORDERING CLINICIAN: MADELEINE ESTES TECHNIQUE: CT of the abdomen and pelvis was performed. Contiguous axial images were obtained at 3 mm slice thickness through the abdomen and pelvis. Coronal and sagittal reconstructions at 3 mm slice thickness were performed. Omnipaque 350 75 mL was administered intravenously. FINDINGS: LOWER CHEST: Cardiac size is normal. No pericardial effusion. Lung bases are clear. ABDOMEN: LIVER: No hepatomegaly. Smooth surface contour. Liver is low in attenuation, indicating hepatic steatosis. BILE DUCTS: No intrahepatic or extrahepatic biliary ductal dilatation. GALLBLADDER: The gallbladder is distended but otherwise unremarkable. STOMACH: No abnormalities identified. PANCREAS: No masses or ductal dilatation. SPLEEN: No splenomegaly or focal splenic lesion. ADRENAL GLANDS: No thickening or nodules. KIDNEYS AND URETERS: Kidneys are normal in size and location. No renal or ureteral calculi. PELVIS: BLADDER: No abnormalities identified. REPRODUCTIVE ORGANS: No acute uterine or adnexal pathology is identified. BOWEL: Appendix is not definitively identified. Terminal ileum is unremarkable. Extensive concentric wall thickening and mucosal enhancement is seen in the colon from the ascending colon to the rectum with a small amount of fluid throughout the nondilated colon. VESSELS: No abnormalities identified. Abdominal aorta is normal in caliber. PERITONEUM/RETROPERITONEUM/LYMPH NODES: No free fluid. No pneumoperitoneum. No lymphadenopathy. ABDOMINAL WALL: No abnormalities identified. SOFT TISSUES: No abnormalities identified. BONES: No acute fracture or aggressive osseous lesion. Impression: Extensive concentric wall thickening and mucosal enhancement of the length of the colon from the ascending colon to the rectum with fluid in the nondilated colon suggesting an acute infectious or inflammatory colitis. Crohn's disease or ulcerative colitis are considerations. Hepatic steatosis. Signed by Jimmy Solomon In the review of systems weakness lethargy no vomiting or diarrhea Physical Exam Awake and alert lungs are clear heart has regular rate and rhythm Relevant Results Assessment/Plan This patient currently has cardiac telemetry ordered; if you would like to modify or discontinue the telemetry order, click here to go to the orders activity to modify/discontinue the order. Principal Problem: Colitis So when she goes home she will be on 40 mg of prednisone daily for 2 months she will get her second round of Remicade in 2 weeks her counts will have to be followed very closely her complete blood count for any side effects continue monitoring her closely treat out the C. difficile with 10 days of vancomycin orally and continue her other medications as well thank you Parish Bernal DO General Surgery Attending Note My Acute Care Surgery MISAEL (Advanced Practice Provider) evaluated this patient today. Please see that documentation for details. I saw the patient with the MISAEL today, and personally evaluated and examined the patient. My findings are consistent with those of the MISAEL. Impression: Received Remicade at 1 AM this morning Feels a bit better although tired Less abdominal pain Still having loose bowel movements but with only minimal blood Plan: Anticipate discharge to home in the near future Patient will follow-up with surgery as needed or per Dr. Monsalve's request Will sign off Ora Longoria is a 28 y.o. female on day 7 of admission presenting with Colitis. Subjective 08/02/2023 no significant overnight events, continues to c/o abdominal discomfort and multiple loose stools (about the same count), continues to have small amount of blood in stool and mild nausea. Mild LFTs elevation essentially unchanged, H&H slightly decreased to 8.5 08/03/2023 continues to complain of significant abdominal cramping, frequent stool, appears somewhat discouraged but does admit that stool does have small amount of blood today and there is significant improvement in CRP from 37.55 to 10.59 today. Appetite still poor QuantiFERON blood test still pending 08/05/23 Tired from staying up most of last night. Believes she is slightly improved. Received 1st Remicade infusion overnight. Continues to have crampy abdominal discomfort but amount of blood in stool lessened, CRP is down to 10 and se noticed stool started to form/get little more body in it. Tolerates small amount of solid diet [place]. Abdomen soft, diffusely mildly tender to palpation, BS present Objective The note was created using voice recognition disposal man software. Despite proofreading, unintentional typographical errors may be present. Please contact the GI office with any questions or concerns. Current Medications: reviewed A 10 point review of system is negative except for what is mentioned in the HPI Follow up with GI was advised Vital Signs: Reviewed Physical Exam: General: no apparent distress, pleasant and cooperative Skin: Warm and dry, no jaundice HEENT: No scleral icterus, no conjunctival pallor, normocephalic, atraumatic, mucous membranes moist Neck: atraumatic, trachea midline, no JVD Chest: decreased air entry to auscultation bilaterally. No wheezes, rales, or rhonchi CV: Regular rate and rhythm. Positive S1/S2 Abdomen: no distension, +BS, soft, mildly tender to palpation more so in periumbilical area, no rebound tenderness, no guarding, no rigidity, no discernible ascites Extremities: no lower extremity edema, Chronic pigmentary changes, no cyanosis Neurological: A&Ox3 , no asterixis Psychiatric: cooperative Investigations: Labs, radiological imaging and cardiac work up were reviewed Last Recorded Vitals Blood pressure (!) 147/93, pulse 69, temperature 36.3 C (97.3 F), resp. rate 20, height 1.6 m (5' 3 ), weight 79.8 kg (176 lb), SpO2 97 %, currently . Intake/Output last 3 Shifts: I/O last 3 completed shifts: In: 1363.3 (17.1 mL/kg) [I.V.:1113.3 (13.9 mL/kg); IV Piggyback:250] Out: - (0 mL/kg) Weight: 79.[address] abdomen pelvis w IV contrast Scheduled medications cholestyramine light, 4 g, oral, BID with meals methylPREDNISolone sodium succinate (PF), 60 mg, intravenous, q24h sertraline, 25 mg, oral, Daily vancomycin, 125 mg, oral, 4x daily Continuous medications sodium chloride 0.9%, 100 mL/hr, Last Rate: 100 mL/hr (08/05/23 0609) PRN medications PRN medications: acetaminophen OR acetaminophen OR acetaminophen, morphine, ondansetron ODT OR ondansetron, polyethylene glycol No results found for this or any previous visit (from the past 24 hour(s)). * Cannot find OR log * Last relevant procedure: Colonoscopy on 07/30/23 This patient currently has cardiac telemetry ordered; if you would like to modify or discontinue the telemetry order, click here to go to the orders activity to modify/discontinue the order. Assessment/Plan Principal Problem: Colitis Ora Longoria is 28 years old female known to Dr. Monsalve with history of ulcerative colitis, last year she was with colitis in complete remission, but after delivery 7 weeks ago her significant problems with severe diarrhea and rectal bleed and abdominal pain have returned. Colonoscopy 07/30/2023 showed severe colitis with deep ulcerations without clear evidence of pseudomembranes. S/p first Remicade infusion overnight, tolerated well. Dose given was 399 mg (5 mg per kg) Will plan for second infusion outpt in 2 weeks Finish oral Vanco as ordered for total of 10 days. Pt will need to be dc'd on Prednisone 40 mg PO daily for 2 months Lab work ordered to be drawn on WednesdayAugust 09 and pt is scheduled for OV with Dr Monsalve on WednesdayAugust 10. Pt discussed with dr Monsalve I spent 30 minutes in the professional and overall care of this patient. LAMIN Melgar Ora Longoria is a 28 y.o. female on day 7 of admission presenting with Colitis. Subjective Patient still describing quite severe cramping abdominal pain, Like a Nev[place] Horse that comes and goes. Still endorsing bloody stool- mostly blood on toilet paper when wiping. Slightly more formed stool, she believes is from Morphine. Intermittent nausea relieved by PRN meds. Able to tolerate PO diet. Very tired from staying awake late last night to receive remicade infusion Objective Physical Exam Constitutional: General: She is not in acute distress. Appearance: Normal appearance. She is normal weight. She is ill-appearing. She is not toxic-appearing. HENT: Head: Normocephalic. Nose: Nose normal. Eyes: General: No scleral icterus. Conjunctiva/sclera: Conjunctivae normal. Cardiovascular: Rate and Rhythm: Normal rate and regular rhythm. Pulses: Normal pulses. Heart sounds: No murmur heard. Comments: NSR 65 Pulmonary: Effort: Pulmonary effort is normal. No respiratory distress. Breath sounds: Normal breath sounds. Abdominal: General: Bowel sounds are normal. There is no distension. Palpations: Abdomen is soft. Tenderness: There is no abdominal tenderness. There is no guarding. Musculoskeletal: Right lower leg: No edema. Left lower leg: No edema. Skin: General: Skin is warm and dry. Neurological: Mental Status: She is alert and oriented to person, place, and time. Psychiatric: Behavior: Behavior normal. Last Recorded Vitals Blood pressure (!) 147/93, pulse 69, temperature 36.3 C (97.3 F), resp. rate 20, height 1.6 m (5' 3 ), weight 79.8 kg (176 lb), SpO2 97 %, currently . Intake/Output last 3 Shifts: I/O last 3 completed shifts: In: 1363.3 (17.1 mL/kg) [I.V.:1113.3 (13.9 mL/kg); IV Piggyback:250] Out: - (0 mL/kg) Weight: 79.8 kg Relevant Results Scheduled medications cholestyramine light, 4 g, oral, BID with meals methylPREDNISolone sodium succinate (PF), 60 mg, intravenous, q24h sertraline, 25 mg, oral, Daily vancomycin, 125 mg, oral, 4x daily Continuous medications sodium chloride 0.9%, 100 mL/hr, Last Rate: 100 mL/hr (08/05/23 0609) PRN medications PRN medications: acetaminophen OR acetaminophen OR acetaminophen, morphine, ondansetron ODT OR ondansetron, polyethylene glycol No results found for this or any previous visit (from the past 24 hour(s)). Assessment/Plan Principal Problem: Colitis Ora Longoria is a 28 y.o. female with a PMH significant for KAVITHA and UC who presented to [facility] ED on 07/28 for abd pain. Pt closely follows with Dr. Monsalve for UC and was planning to start remicade as an outpatient, but her sxs worsened so she presented to the ED. Surgery was consulted to establish care for possible surgical intervention in the future. Impression: Severe Ulcerative Colitis in acute flare C diff colonization Recommendations: - No immediate surgical intervention. Emergent surgical indications for total colectomy would be toxic megacolon; no current s/s - Pt would like to try remicade before considering surgery and agree this is a reasonable plan - Pt can follow-up with Dr. Iniguez as an outpatient once acute episode is resolved to further discuss surgical options if interested - Remainder of care per GI Surgery will now sign off. Please re-consult if needed. The patient will be seen and discussed with the attending surgeon Dr. Iniguez I spent 20 minutes in the professional and overall care of this patient. LAIMN Owens Ora Longoria is a 28 y.o. female on day 6 of admission presenting with Colitis. Subjective Patient is feeling overall better. Although she continues to have multiple episodes of diarrhea she thinks she is a little bit better. She continues to use the morphine for the pain although overall she feels better. She saw surgery yesterday but at this point she would like to avoid surgery if needed. Objective Physical Exam Vitals reviewed. Constitutional: Appearance: Normal appearance. She is ill-appearing. Cardiovascular: Rate and Rhythm: Normal rate and regular rhythm. Pulses: Normal pulses. Pulmonary: Effort: Pulmonary effort is normal. Breath sounds: Normal breath sounds. Abdominal: General: Abdomen is flat. Bowel sounds are normal. There is no distension. Palpations: Abdomen is soft. Tenderness: There is abdominal tenderness. Musculoskeletal: General: Normal range of motion. Neurological: Mental Status: She is alert. Last Recorded Vitals Blood pressure (!) 152/92, pulse 56, temperature 36.4 C (97.5 F), temperature source Temporal, resp. rate 18, height 1.6 m (5' 3 ), weight 79.8 kg (176 lb), SpO2 96 %, currently . Intake/Output last 3 Shifts: I/O last 3 completed shifts: In: 5345 (67 mL/kg) [P.O.:620; I.V.:4725 (59.2 mL/kg)] Out: - (0 mL/kg) Weight: 79.8 kg Assessment/Plan This is a 28-year-old woman with a history of ulcerative colitis that has been in remission during who presented originally because of a significant flareup of her colitis after she had her baby. She was also found to have a positive C. difficile stool test which could be related to colonization rather than active C. difficile infection. Colonoscopy did show severe colitis most likely ulcerative colitis rather than pseudomembranous colitis related to C. difficile. She has been on IV steroids with Solu-Medrol 60 and we have been trying to get her on Remicade. We are still awaiting the TB test to come back prior to giving her Remicade. Overall I think she is a little bit better and she has had a significant improvement of the CRP with steroids. If we are able to get the Remicade today I will like her to follow-up with me next week with a repeat CRP and then if she has a significant improvement then we will schedule her for repeat Remicade infusion in 2 weeks as an outpatient. I discussed this with her. Anticipate discharge home tomorrow. Darius Monsalve MD Ora Longoria is a 28 y.o. female on day 6 of admission presenting with Colitis. Subjective Seen today she is to get the Remicade this afternoon so far pain is still there she still has abdominal pain still having some watery diarrhea she is on the glucocorticoids and has been so regular IV Remicade this afternoon I will like to call the pharmacy just touch base with them regarding that. Objective Last Recorded Vitals BP (!) 152/92 (BP Location: Left arm, Patient Position: Lying) Pulse 56 Temp 36.4 C (97.5 F) (Temporal) Resp 18 Wt 79.8 kg (176 lb) SpO2 96% Yes Intake/Output last 3 Shifts: Intake/Output Summary (Last 24 hours) at 08/04/2023 1306 Last data filed at 08/04/2023 0605 Gross per 24 hour Intake 1965 ml Output -- Net 1965 ml Admission Weight Weight: 79.8 kg (176 lb) (07/28/231921) Daily Weight 07/28/23 : 79.8 kg (176 lb) Image Results CT abdomen pelvis w IV contrast Narrative: STUDY: CT Abdomen and Pelvis with IV Contrast; 07/29/2023 at 2:39 AM INDICATION: UC, bleeding with pain. COMPARISON: None available. ACCESSION NUMBER(S): [id number] ORDERING CLINICIAN: MADELEINE ESTES TECHNIQUE: CT of the abdomen and pelvis was performed. Contiguous axial images were obtained at 3 mm slice thickness through the abdomen and pelvis. Coronal and sagittal reconstructions at 3 mm slice thickness were performed. Omnipaque 350 75 mL was administered intravenously. FINDINGS: LOWER CHEST: Cardiac size is normal. No pericardial effusion. Lung bases are clear. ABDOMEN: LIVER: No hepatomegaly. Smooth surface contour. Liver is low in attenuation, indicating hepatic steatosis. BILE DUCTS: No intrahepatic or extrahepatic biliary ductal dilatation. GALLBLADDER: The gallbladder is distended but otherwise unremarkable. STOMACH: No abnormalities identified. PANCREAS: No masses or ductal dilatation. SPLEEN: No splenomegaly or focal splenic lesion. ADRENAL GLANDS: No thickening or nodules. KIDNEYS AND URETERS: Kidneys are normal in size and location. No renal or ureteral calculi. PELVIS: BLADDER: No abnormalities identified. REPRODUCTIVE ORGANS: No acute uterine or adnexal pathology is identified. BOWEL: Appendix is not definitively identified. Terminal ileum is unremarkable. Extensive concentric wall thickening and mucosal enhancement is seen in the colon from the ascending colon to the rectum with a small amount of fluid throughout the nondilated colon. VESSELS: No abnormalities identified. Abdominal aorta is normal in caliber. PERITONEUM/RETROPERITONEUM/LYMPH NODES: No free fluid. No pneumoperitoneum. No lymphadenopathy. ABDOMINAL WALL: No abnormalities identified. SOFT TISSUES: No abnormalities identified. BONES: No acute fracture or aggressive osseous lesion. Impression: Extensive concentric wall thickening and mucosal enhancement of the length of the colon from the ascending colon to the rectum with fluid in the nondilated colon suggesting an acute infectious or inflammatory colitis. Crohn's disease or ulcerative colitis are considerations. Hepatic steatosis. Signed by Jimmy Solomon In the review of systems still having abdominal pain no fever still having some watery diarrhea no vomiting Physical Exam So far lungs are clear heart has a regular rate and rhythm She is awake and alert except for the abdominal pain she is having Relevant Results Assessment/Plan This patient currently has cardiac telemetry ordered; if you would like to modify or discontinue the telemetry order, click here to go to the orders activity to modify/discontinue the order. Principal Problem: Colitis So far ready to give her IV Remicade on IV Solu-Medrol will see symptomatically how she does by tomorrow I said it would probably at least 1 to 2 days so it may be Wednesday if all goes well she can probably go home and then she would be outpatient IV Remicade follow-up with GI probably does not need to follow-up with surgery Parish Bernal DO Awaiting to see if pt will be able to receive IV Remicaide, await on lab results. Shantell Nation RN [facility] General Surgery Attending Note My Acute Care Surgery MISAEL (Advanced Practice Provider) evaluated this patient today. Please see that documentation for details. I saw the patient with the MISAEL today, and personally evaluated and examined the patient. My findings are consistent with those of the MISAEL. Narrative: Dr. Monsalve requested that I establish care with this patient regarding possible future surgical options This 28-year-old female with a 9-year history of ulcerative colitis was admitted to the hospital on 07/28/2023 with abdominal pain nausea vomiting fever and bloody diarrhea. When the patient was recently gravid, she was asymptomatic. Following the delivery of her son in mid May, she developed progressive recurrent symptoms of her ulcerative colitis. On admission, the patient had a CAT scan of the abdomen pelvis with IV contrast on 07/29/2023 which I personally reviewed. This reveals diffuse colonic edema from the cecum to the rectum with hyperemia of the mucosa. There is no free fluid or free air. This was followed the following day with a colonoscopy on 07/30 which revealed again diffuse mucosal changes and grider ulcerative colitis with edema erythema and ulcerations. I reviewed the images. The patient is been placed on IV methylprednisolone, and is awaiting Remicade administration while hospitalized. Patient is still having diarrheal bowel movements with some blood. She still has abdominal pain. She has had no fever. Her vital signs are satisfactory. Her white blood cell count has been in the 14,000 range. On examination today, the patient's abdomen is soft and nondistended and there are scattered bowel sounds. She has mild diffuse abdominal tenderness. There is no evidence of peritonitis. Impression: 28-year-old female with exacerbation of ulcerative colitis with no evidence of toxic megacolon Recommendations: I had a long and detailed discussion with the patient this morning regarding possible future surgical options. Hopefully, with maximal medical therapy, and immunomodulators, surgical intervention can be avoided altogether. I explained the patient that we try to avoid operative therapy unless absolutely indicated. The patient has never been on immunomodulators in the past. Surgical indications can be categorized as either emergent or elective. Indications for more emergent intervention include primarily toxic megacolon, in addition to free perforation or hemorrhage. These are all quite rare but can occur. The patient has no evidence of any of these issues. Surgical intervention in any of the settings would be a subtotal colectomy and end ileostomy, preserving the rectum for future more elective intervention, and jain of intestinal continuity. Electively, indications to operate are primarily intractability of symptoms despite maximal medical treatment. The patient does not have maximal medical treatment to this point. In addition to failure to respond to maximal therapy, other indications include inability to cope with the side effects of treatment, and development of dysplasia or carcinoma in those with longstanding ulcerative colitis. Contemporary management of ulcerative colitis presents two options electively primarily. The preferred alternative is proctocolectomy with ileal pouch anal anastomosis (IPPA). This is usually a proctocolectomy with a ileal J-pouch with ileoanal anastomosis. Pluses and minuses of this approach were briefly discussed with the patient. This procedure is performed by a colorectal surgeon, and I explained to her that we have many qualified colorectal surgeons in the system. The other option is a total proctocolectomy with permanent end-ileostomy. At this point, we will await institution of Remicade, and will return to see the patient tomorrow to answer any further questions. Thank you for the opportunity to be involved in Ora's care. Ora Longoria is a 28 y.o. female on day 6 of admission presenting with Colitis. Subjective Patient still endorsing bloody diarrhea and abdominal pain. States it is not much improved from when she came into the hospital. Still nauseated requiring Zofran, but has not vomited. Tolerating diet. No fever or chills. Objective Physical Exam Constitutional: General: She is not in acute distress. Appearance: Normal appearance. She is normal weight. She is ill-appearing. She is not toxic-appearing. HENT: Head: Normocephalic. Nose: Nose normal. Eyes: General: No scleral icterus. Conjunctiva/sclera: Conjunctivae normal. Cardiovascular: Rate and Rhythm: Normal rate and regular rhythm. Pulses: Normal pulses. Heart sounds: No murmur heard. Pulmonary: Effort: Pulmonary effort is normal. No respiratory distress. Breath sounds: Normal breath sounds. Abdominal: General: Bowel sounds are decreased. There is no distension. Palpations: Abdomen is soft. Tenderness: There is generalized abdominal tenderness. There is no guarding. Musculoskeletal: Right lower leg: No edema. Left lower leg: No edema. Skin: General: Skin is warm and dry. Neurological: Mental Status: She is alert and oriented to person, place, and time. Psychiatric: Behavior: Behavior normal. Last Recorded Vitals Blood pressure 140/83, pulse 54, temperature 36.1 C (97 F), temperature source Temporal, resp. rate 18, height 1.6 m (5' 3 ), weight 79.8 kg (176 lb), SpO2 94 %, currently . Intake/Output last 3 Shifts: I/O last 3 completed shifts: In: 5345 (67 mL/kg) [P.O.:620; I.V.:4725 (59.2 mL/kg)] Out: - (0 mL/kg) Weight: 79.8 kg Relevant Results Scheduled medications cholestyramine light, 4 g, oral, BID with meals inFLIXimab, 5 mg/kg, intravenous, Once methylPREDNISolone sodium succinate (PF), 60 mg, intravenous, q24h sertraline, 25 mg, oral, Daily vancomycin, 125 mg, oral, 4x daily Continuous medications sodium chloride 0.9%, 100 mL/hr, Last Rate: 100 mL/hr (08/04/23 0831) PRN medications PRN medications: acetaminophen OR acetaminophen OR acetaminophen, morphine, ondansetron ODT OR ondansetron, polyethylene glycol Assessment/Plan Principal Problem: Colitis Ora Longoria is a 28 y.o. female with a PMH significant for KAVITHA and UC who presented to [facility] ED on 07/28 for abd pain. Pt closely follows with Dr. Monsalve for UC and was planning to start remicade as an outpatient, but her sxs worsened so she presented to the ED. Surgery was consulted to establish care for possible surgical intervention in the future. Pt is currently awaiting clearance of TB test prior to initiating remicade during admission. She states that she would potentially be interested in surgical intervention if the remicade does not provide relief. We discussed that surgical treatment typically includes total colectomy with ileostomy creation and she states she was familiar with this. Impression: Severe Ulcerative Colitis in acute flare C diff colonization Recommendations: - No immediate surgical intervention. Emergent surgical indications for total colectomy would be toxic megacolon; no current s/s - Pt would like to try remicade before considering surgery and agree this is a reasonable plan - Pt can follow-up with Dr. Iniguez as an outpatient once acute episode is resolved to further discuss surgical options if interested; however, for elective operation, would ideally see colorectal for colectomy with ileoanal anastomosis. Dr. Iniguez able to provide referral - Remainder of care per GI Will see again tomorrow The patient was seen and discussed with the attending surgeon Dr. Iniguez I spent 20 minutes in the professional and overall care of this patient. LAMIN Owens Ora Longoria is a 28 y.o. female on day 5 of admission presenting with Colitis. Subjective Seen today so far still having crampy abdominal pain is about the same her QuantiFERON test for TB is still pending Objective Last Recorded Vitals BP 117/55 (BP Location: Right arm, Patient Position: Lying) Pulse 78 Temp 36.3 C (97.3 F) (Temporal) Resp 18 Wt 79.8 kg (176 lb) SpO2 93% Yes Intake/Output last 3 Shifts: Intake/Output Summary (Last 24 hours) at 08/03/20232123 Last data filed at 08/03/2023 1857 Gross per 24 hour Intake 4231.67 ml Output -- Net 4231.67 ml Admission Weight Weight: 79.8 kg (176 lb) (07/28/23 1922) Daily Weight 07/28/23 : 79.8 kg (176 lb) Image Results CT abdomen pelvis w IV contrast Narrative: STUDY: CT Abdomen and Pelvis with IV Contrast; 07/29/2023 at 2:39 AM INDICATION: UC, bleeding with pain. COMPARISON: None available. ACCESSION NUMBER(S): [id number] ORDERING CLINICIAN: MADELEINE ESTES TECHNIQUE: CT of the abdomen and pelvis was performed. Contiguous axial images were obtained at 3 mm slice thickness through the abdomen and pelvis. Coronal and sagittal reconstructions at 3 mm slice thickness were performed. Omnipaque 350 75 mL was administered intravenously. FINDINGS: LOWER CHEST: Cardiac size is normal. No pericardial effusion. Lung bases are clear. ABDOMEN: LIVER: No hepatomegaly. Smooth surface contour. Liver is low in attenuation, indicating hepatic steatosis. BILE DUCTS: No intrahepatic or extrahepatic biliary ductal dilatation. GALLBLADDER: The gallbladder is distended but otherwise unremarkable. STOMACH: No abnormalities identified. PANCREAS: No masses or ductal dilatation. SPLEEN: No splenomegaly or focal splenic lesion. ADRENAL GLANDS: No thickening or nodules. KIDNEYS AND URETERS: Kidneys are normal in size and location. No renal or ureteral calculi. PELVIS: BLADDER: No abnormalities identified. REPRODUCTIVE ORGANS: No acute uterine or adnexal pathology is identified. BOWEL: Appendix is not definitively identified. Terminal ileum is unremarkable. Extensive concentric wall thickening and mucosal enhancement is seen in the colon from the ascending colon to the rectum with a small amount of fluid throughout the nondilated colon. VESSELS: No abnormalities identified. Abdominal aorta is normal in caliber. PERITONEUM/RETROPERITONEUM/LYMPH NODES: No free fluid. No pneumoperitoneum. No lymphadenopathy. ABDOMINAL WALL: No abnormalities identified. SOFT TISSUES: No abnormalities identified. BONES: No acute fracture or aggressive osseous lesion. Impression: Extensive concentric wall thickening and mucosal enhancement of the length of the colon from the ascending colon to the rectum with fluid in the nondilated colon suggesting an acute infectious or inflammatory colitis. Crohn's disease or ulcerative colitis are considerations. Hepatic steatosis. Signed by Jimmy Solomon In the review of systems is crampy abdominal pain no fever weakness lethargy Physical Exam Lungs are diminished but clear heart has regular rate and rhythm abdomen soft is not distended or firm Relevant Results Assessment/Plan This patient currently has cardiac telemetry ordered; if you would like to modify or discontinue the telemetry order, click here to go to the orders activity to modify/discontinue the order. Principal Problem: Colitis So far continue the same present care and therapy and treatment ulcerative colitis C. difficile severe colitis with deep ulcerations without clear evidence of the pseudomembranes Need to get the QuantiFERON test back before they are going to give her Remicade so it is can observe monitor supportive care until we can do that thank you Parish Bernal DO Ora Longoria is a 28 y.o. female on day 5 of admission presenting with Colitis. Subjective 07/02/2024 no significant overnight events, continues to c/o abdominal discomfort and multiple loose stools (about the same count), continues to have small amount of blood in stool and mild nausea. Mild LFTs elevation essentially unchanged, H&H slightly decreased to 8.5 07/03/2024 continues to complain of significant abdominal cramping, frequent stool, appears somewhat discouraged but does admit that stool does have small amount of blood today and there is significant improvement in CRP from 37.55 to 10.59 today. Appetite still poor QuantiFERON blood test still pending Objective The note was created using voice recognition disposal man software. Despite proofreading, unintentional typographical errors may be present. Please contact the GI office with any questions or concerns. Current Medications: reviewed A 10 point review of system is negative except for what is mentioned in the HPI Follow up with GI was advised Vital Signs: Reviewed Physical Exam: General: no apparent distress, pleasant and cooperative Skin: Warm and dry, no jaundice HEENT: No scleral icterus, no conjunctival pallor, normocephalic, atraumatic, mucous membranes moist Neck: atraumatic, trachea midline, no JVD Chest: decreased air entry to auscultation bilaterally. No wheezes, rales, or rhonchi CV: Regular rate and rhythm. Positive S1/S2 Abdomen: no distension, +BS, soft, mildly tender to palpation more so in periumbilical area, no rebound tenderness, no guarding, no rigidity, no discernible ascites Extremities: no lower extremity edema, Chronic pigmentary changes, no cyanosis Neurological: A&Ox3 , no asterixis Psychiatric: cooperative Investigations: Labs, radiological imaging and cardiac work up were reviewed Last Recorded Vitals Blood pressure (!) 163/92, pulse 65, temperature 36.8 C (98.2 F), temperature source Temporal, resp. rate 16, height 1.6 m (5' 3 ), weight 79.8 kg (176 lb), SpO2 97 %, currently . Intake/Output last 3 Shifts: I/O last 3 completed shifts: In: 4171.7 (52.3 mL/kg) [P.O.:900; I.V.:3271.7 (41 mL/kg)] Out: - (0 mL/kg) Weight: 79.[address] abdomen pelvis w IV contrast Scheduled medications cholestyramine light, 4 g, oral, BID with meals inFLIXimab, 5 mg/kg, intravenous, Once methylPREDNISolone sodium succinate (PF), 60 mg, intravenous, q24h sertraline, 25 mg, oral, Daily vancomycin, 125 mg, oral, 4x daily Continuous medications sodium chloride 0.9%, 100 mL/hr, Last Rate: 100 mL/hr (08/03/23 1338) PRN medications PRN medications: acetaminophen OR acetaminophen OR acetaminophen, morphine, ondansetron ODT OR ondansetron, polyethylene glycol No results found for this or any previous visit (from the past 24 hour(s)). * Cannot find OR log * Last relevant procedure: Colonoscopy on 07/30/23 This patient currently has cardiac telemetry ordered; if you would like to modify or discontinue the telemetry order, click here to go to the orders activity to modify/discontinue the order. Assessment/Plan Principal Problem: Colitis Ora Longoria is 28 years old female known to Dr. Monsalve with history of ulcerative colitis, last year she was with colitis in complete remission, but after delivery 7 weeks ago her significant problems with severe diarrhea and rectal bleed and abdominal pain have returned. Colonoscopy 07/30/2023 showed severe colitis with deep ulcerations without clear evidence of pseudomembranes. She continues to be on oral vanco for C. difficile despite negative EIA due to pronounced clinical presentation of colitis. Patient is on high-dose steroids for her colitis. At this time awaiting results of QuantiFERON blood work to start patient on Remicade infusion, hopefully tomorrow. Patient discussed with Dr. Monsalve Will continue to follow I spent 30 minutes in the professional and overall care of this patient. LAMIN Melgar Pt may need IV Remicade vs possible surgery, will follow. Shantell Nation RN [facility] Ora Longoria is a 28 y.o. female on day 4 of admission presenting with Colitis. Subjective Seen today so far stable no problems or issues she has a severe ulcerative colitis along with a C. difficile I know were trying to start her on IV Remicade we need a TB test lay down today will need several days to review it her TB test she can probably get I imagine IV Remicade while in house Objective Last Recorded Vitals BP 130/75 (BP Location: Right arm, Patient Position: Lying) Pulse 74 Temp 36.7 C (98.1 F) (Temporal) Resp 18 Wt 79.8 kg (176 lb) SpO2 95% Yes Intake/Output last 3 Shifts: Intake/Output Summary (Last 24 hours) at 08/02/2023 1751 Last data filed at 08/02/2023 0650 Gross per 24 hour Intake 1810 ml Output -- Net 1810 ml Admission Weight Weight: 79.8 kg (176 lb) (07/28/231921) Daily Weight 07/28/23 : 79.8 kg (176 lb) Image Results CT abdomen pelvis w IV contrast Narrative: STUDY: CT Abdomen and Pelvis with IV Contrast; 07/29/2023 at 2:39 AM INDICATION: UC, bleeding with pain. COMPARISON: None available. ACCESSION NUMBER(S): [id number] ORDERING CLINICIAN: MADELEINE ESTES TECHNIQUE: CT of the abdomen and pelvis was performed. Contiguous axial images were obtained at 3 mm slice thickness through the abdomen and pelvis. Coronal and sagittal reconstructions at 3 mm slice thickness were performed. Omnipaque 350 75 mL was administered intravenously. FINDINGS: LOWER CHEST: Cardiac size is normal. No pericardial effusion. Lung bases are clear. ABDOMEN: LIVER: No hepatomegaly. Smooth surface contour. Liver is low in attenuation, indicating hepatic steatosis. BILE DUCTS: No intrahepatic or extrahepatic biliary ductal dilatation. GALLBLADDER: The gallbladder is distended but otherwise unremarkable. STOMACH: No abnormalities identified. PANCREAS: No masses or ductal dilatation. SPLEEN: No splenomegaly or focal splenic lesion. ADRENAL GLANDS: No thickening or nodules. KIDNEYS AND URETERS: Kidneys are normal in size and location. No renal or ureteral calculi. PELVIS: BLADDER: No abnormalities identified. REPRODUCTIVE ORGANS: No acute uterine or adnexal pathology is identified. BOWEL: Appendix is not definitively identified. Terminal ileum is unremarkable. Extensive concentric wall thickening and mucosal enhancement is seen in the colon from the ascending colon to the rectum with a small amount of fluid throughout the nondilated colon. VESSELS: No abnormalities identified. Abdominal aorta is normal in caliber. PERITONEUM/RETROPERITONEUM/LYMPH NODES: No free fluid. No pneumoperitoneum. No lymphadenopathy. ABDOMINAL WALL: No abnormalities identified. SOFT TISSUES: No abnormalities identified. BONES: No acute fracture or aggressive osseous lesion. Impression: Extensive concentric wall thickening and mucosal enhancement of the length of the colon from the ascending colon to the rectum with fluid in the nondilated colon suggesting an acute infectious or inflammatory colitis. Crohn's disease or ulcerative colitis are considerations. Hepatic steatosis. Signed by Jimmy Solomon In the review of systems she is not having any vomiting no fever not complaining of any abdominal pain at this time Physical Exam Lungs are diminished but clear heart has a regular rate and rhythm abdomen is soft is not distended or firm Relevant Results Assessment/Plan This patient currently has cardiac telemetry ordered; if you would like to modify or discontinue the telemetry order, click here to go to the orders activity to modify/discontinue the order. Principal Problem: Colitis For now continue the same present care and therapy and treatment and repeat the CBC and the electrolytes TB test to be laid down and then IV Remicade potentially Parish Bernal DO Ora Longoria is a 28 y.o. female on day 4 of admission presenting with Colitis. Subjective 07/02/2024 no significant overnight events, continues to c/o abdominal discomfort and multiple loose stools (about the same count), continues to have small amount of blood in stool and mild nausea. Mild LFTs elevation essentially unchanged, H&H slightly decreased to 8.5 Objective The note was created using voice recognition disposal man software. Despite proofreading, unintentional typographical errors may be present. Please contact the GI office with any questions or concerns. Current Medications: reviewed A 10 point review of system is negative except for what is mentioned in the HPI Follow up with GI was advised Vital Signs: Reviewed Physical Exam: General: no apparent distress, pleasant and cooperative Skin: Warm and dry, no jaundice HEENT: No scleral icterus, no conjunctival pallor, normocephalic, atraumatic, mucous membranes moist Neck: atraumatic, trachea midline, no JVD Chest: decreased air entry to auscultation bilaterally. No wheezes, rales, or rhonchi CV: Regular rate and rhythm. Positive S1/S2 Abdomen: no distension, +BS, soft, mildly tender to palpation more so in periumbilical area, no rebound tenderness, no guarding, no rigidity, no discernible ascites Extremities: no lower extremity edema, Chronic pigmentary changes, no cyanosis Neurological: A&Ox3 , no asterixis Psychiatric: cooperative Investigations: Labs, radiological imaging and cardiac work up were reviewed Last Recorded Vitals Blood pressure 130/75, pulse 74, temperature 36.7 C (98.1 F), resp. rate 16, height 1.6 m (5' 3 ), weight 79.8 kg (176 lb), SpO2 95 %, currently . Intake/Output last 3 Shifts: I/O last 3 completed shifts: In: 4748.3 (59.5 mL/kg) [P.O.:520; I.V.:4228.3 (53 mL/kg)] Out: - (0 mL/kg) Weight: 79.[address] abdomen pelvis w IV contrast Scheduled medications cholestyramine light, 4 g, oral, BID with meals methylPREDNISolone sodium succinate (PF), 60 mg, intravenous, q24h sertraline, 25 mg, oral, Daily vancomycin, 125 mg, oral, 4x daily Continuous medications sodium chloride 0.9%, 100 mL/hr, Last Rate: 100 mL/hr (08/02/23 1623) PRN medications PRN medications: acetaminophen OR acetaminophen OR acetaminophen, morphine, ondansetron ODT OR ondansetron, polyethylene glycol Results for orders placed or performed during the hospital encounter of 07/28/23 (from the past 24 hour(s)) CBC Result Value Ref Range WBC 14.7 (H) 4.4 - 11.3 x10*3/uL nRBC 0.5 (H) 0.0 - 0.0 /100 WBCs RBC 2.93 (L) 4.00 - 5.20 x10*6/uL Hemoglobin 8.5 (L) 12.0 - 16.0 g/dL Hematocrit 27.3 (L) 36.0 - 46.0 % MCV 93 80 - 100 fL MCH 29.0 26.0 - 34.0 pg MCHC 31.1 (L) 32.0 - 36.0 g/dL RDW 12.7 11.5 - 14.5 % Platelets 503 (H) 150 - 450 x10*3/uL Comprehensive Metabolic Panel Result Value Ref Range Glucose 111 (H) 74 - 99 mg/dL Sodium 143 136 - 145 mmol/L Potassium 3.7 3.5 - 5.3 mmol/L Chloride 109 (H) 98 - 107 mmol/L Bicarbonate 26 21 - 32 mmol/L Anion Gap 12 10 - 20 mmol/L Urea Nitrogen 5 (L) 6 - 23 mg/dL Creatinine 0.57 0.50 - 1.05 mg/dL eGFR >90 >60 mL/min/1.73m*2 Calcium 7.7 (L) 8.6 - 10.3 mg/dL Albumin 2.5 (L) 3.4 - 5.0 g/dL Alkaline Phosphatase 117 (H) 33 - 110 U/L Total Protein 4.7 (L) 6.4 - 8.2 g/dL AST 20 9 - 39 U/L Bilirubin, Total 0.2 0.0 - 1.2 mg/dL ALT 64 (H) 7 - 45 U/L * Cannot find OR log * Last relevant procedure: Colonoscopy on 07/30/23 This patient currently has cardiac telemetry ordered; if you would like to modify or discontinue the telemetry order, click here to go to the orders activity to modify/discontinue the order. Assessment/Plan Principal Problem: Colitis Ora Longoria is 28 years old female known to Dr. Monsalve with history of ulcerative colitis, last year she was with colitis in complete remission, but after delivery 7 weeks ago her significant problems with severe diarrhea and rectal bleed and abdominal pain have returned. Currently plan is to start her on IV Remicade but she had to come to the hospital secondary to worsening of symptoms and low-grade fever, was found positive for C. difficile (PCR positive, EIA negative, colonoscopy done on 07/30/2023 showed severe colitis with deep ulcerations without clear evidence of pseudomembranes. 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 difficile since AAs negative but given her clinical presentation I agree with continuation of oral Vanco. Patient is on high-dose steroids for her colitis. Plan is to start IV Remicade while patient in the hospital due to severity of patient's illness. Surgery on consult given severity of disease TB testing pending in anticipation of Remicade starting Patient discussed with Dr. Monsalve Will continue to follow I spent 30 minutes in the professional and overall care of this patient. LAMIN Melgar Images from the original note were not included. Ora Longoria is a 28 y.o. female on day 3 of admission presenting with Colitis. Subjective Patient fully evaluated on July 31 and still having significant diarrhea. Objective Last Recorded Vitals BP 137/83 (BP Location: Right arm, Patient Position: Lying) Pulse 67 Temp 36 C (96.8 F) (Temporal) Resp 16 Wt 79.8 kg (176 lb) SpO2 94% Yes Intake/Output last 3 Shifts: Intake/Output Summary (Last 24 hours) at 08/01/2023 1616 Last data filed at 08/01/2023 1305 Gross per 24 hour Intake 2573.33 ml Output -- Net 2573.33 ml Admission Weight Weight: 79.8 kg (176 lb) (07/28/23 1922) Daily Weight 07/28/23 : 79.8 kg (176 lb) Image Results CT abdomen pelvis w IV contrast Narrative: STUDY: CT Abdomen and Pelvis with IV Contrast; 07/29/2023 at 2:39 AM INDICATION: UC, bleeding with pain. COMPARISON: None available. ACCESSION NUMBER(S): [id number] ORDERING CLINICIAN: MADELEINE ESTES TECHNIQUE: CT of the abdomen and pelvis was performed. Contiguous axial images were obtained at 3 mm slice thickness through the abdomen and pelvis. Coronal and sagittal reconstructions at 3 mm slice thickness were performed. Omnipaque 350 75 mL was administered intravenously. FINDINGS: LOWER CHEST: Cardiac size is normal. No pericardial effusion. Lung bases are clear. ABDOMEN: LIVER: No hepatomegaly. Smooth surface contour. Liver is low in attenuation, indicating hepatic steatosis. BILE DUCTS: No intrahepatic or extrahepatic biliary ductal dilatation. GALLBLADDER: The gallbladder is distended but otherwise unremarkable. STOMACH: No abnormalities identified. PANCREAS: No masses or ductal dilatation. SPLEEN: No splenomegaly or focal splenic lesion. ADRENAL GLANDS: No thickening or nodules. KIDNEYS AND URETERS: Kidneys are normal in size and location. No renal or ureteral calculi. PELVIS: BLADDER: No abnormalities identified. REPRODUCTIVE ORGANS: No acute uterine or adnexal pathology is identified. BOWEL: Appendix is not definitively identified. Terminal ileum is unremarkable. Extensive concentric wall thickening and mucosal enhancement is seen in the colon from the ascending colon to the rectum with a small amount of fluid throughout the nondilated colon. VESSELS: No abnormalities identified. Abdominal aorta is normal in caliber. PERITONEUM/RETROPERITONEUM/LYMPH NODES: No free fluid. No pneumoperitoneum. No lymphadenopathy. ABDOMINAL WALL: No abnormalities identified. SOFT TISSUES: No abnormalities identified. BONES: No acute fracture or aggressive osseous lesion. Impression: Extensive concentric wall thickening and mucosal enhancement of the length of the colon from the ascending colon to the rectum with fluid in the nondilated colon suggesting an acute infectious or inflammatory colitis. Crohn's disease or ulcerative colitis are considerations. Hepatic steatosis. Signed by Jimmy Solomon Physical Exam Relevant Results Assessment/Plan This patient currently has cardiac telemetry ordered; if you would like to modify or discontinue the telemetry order, click here to go to the orders activity to modify/discontinue the order. Principal Problem: Colitis Parish Bernal DO Physician Internal Medicine H&P Addendum Date of Service: 07/29/2023 10:31 AM Addendum Expand All Collapse All History Of Present Illness Ora Longoria is a 28-year-old female who presents to the emergency department with a fever, abdominal pain, diarrhea, nausea and vomiting. Her symptoms started 3 days ago. She does report some blood in her stool. She recently gave 6 weeks ago. She has a history of ulcerative colitis however she says that she did not have any flair ups during her . After she delivered she has been having some intermittent abdominal pain. 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 ED Course VS reviewed Labs reviewed, results below, potassium 2.6, replaced in ED, WBC 19.5 CT abd/pelvis reviewed, results below IVF IV Morphine and IV Zofran Blood cultures pending GI consult Past Medical History Ulcerative colitis Surgical History Surgical History No past surgical history on file. Social History Non-smoker, denies alcohol or illicit drug use, lives at home with family Family History Family History Family History Problem Relation Name Age of Onset Colon cancer Mother's Sister Allergies Cephalexin Review of Systems Constitutional: Positive for fever. HENT: Negative. Eyes: Negative. Respiratory: Negative. Cardiovascular: Negative. Gastrointestinal: Positive for abdominal pain, blood in stool, diarrhea, nausea and vomiting. Endocrine: Negative. Genitourinary: Negative. Musculoskeletal: Negative. Skin: Negative. Allergic/Immunologic: Negative. Neurological: Negative. Hematological: Negative. Psychiatric/Behavioral: Negative. Physical Exam Constitutional: General: She is not in acute distress. Appearance: Normal appearance. HENT: Nose: Nose normal. Mouth/Throat: Mouth: Mucous membranes are moist. Pharynx: Oropharynx is clear. Eyes: Extraocular Movements: Extraocular movements intact. Cardiovascular: Rate and Rhythm: Regular rhythm. Tachycardia present. Pulses: Normal pulses. Pulmonary: Effort: Pulmonary effort is normal. Breath sounds: Normal breath sounds. Abdominal: General: Bowel sounds are normal. Palpations: Abdomen is soft. Tenderness: There is abdominal tenderness. There is no rebound. Musculoskeletal: General: Normal range of motion. Cervical back: Normal range of motion. Skin: General: Skin is warm. Capillary Refill: Capillary refill takes less than 2 seconds. Neurological: General: No focal deficit present. Mental Status: She is alert and oriented to person, place, and time. Psychiatric: Mood and Affect: Mood normal. Behavior: Behavior normal. Last Recorded Vitals Blood pressure 127/78, pulse 110, temperature 37.8 C (100 F), temperature source Tympanic, resp. rate 19, height 1.6 m (5' 3 ), weight 79.8 kg (176 lb), SpO2 100 %. Relevant Results Results for orders placed or performed during the hospital encounter of 07/28/23 (from the past 24 hour(s)) CBC and Auto Differential Result Value Ref Range WBC 19.5 (H) 4.4 - 11.3 x10*3/uL nRBC 0.1 (H) 0.0 - 0.0 /100 WBCs RBC 3.82 (L) 4.00 - 5.20 x10*6/uL Hemoglobin 11.6 (L) 12.0 - 16.0 g/dL Hematocrit 33.7 (L) 36.0 - 46.0 % MCV 88 80 - 100 fL MCH 30.4 26.0 - 34.0 pg MCHC 34.4 32.0 - 36.0 g/dL RDW 12.3 11.5 - 14.5 % Platelets 539 (H) 150 - 450 x10*3/uL Neutrophils % 84.2 40.0 - 80.0 % Immature Granulocytes %, Automated 1.0 (H) 0.0 - 0.9 % Lymphocytes % 6.2 13.0 - 44.0 % Monocytes % 8.2 2.0 - 10.0 % Eosinophils % 0.1 0.0 - 6.0 % Basophils % 0.3 0.0 - 2.0 % Neutrophils Absolute 16.43 (H) 1.20 - 7.70 x10*3/uL Immature Granulocytes Absolute, Automated 0.20 0.00 - 0.70 x10*3/uL Lymphocytes Absolute 1.20 1.20 - 4.80 x10*3/uL Monocytes Absolute 1.59 (H) 0.10 - 1.00 x10*3/uL Eosinophils Absolute 0.01 0.00 - 0.70 x10*3/uL Basophils Absolute 0.06 0.00 - 0.10 x10*3/uL Magnesium Result Value Ref Range Magnesium 1.38 (L) 1.60 - 2.40 mg/dL Comprehensive metabolic panel Result Value Ref Range Glucose 125 (H) 74 - 99 mg/dL Sodium 135 (L) 136 - 145 mmol/L Potassium 2.6 (LL) 3.5 - 5.3 mmol/L Chloride 98 98 - 107 mmol/L Bicarbonate 23 21 - 32 mmol/L Anion Gap 17 10 - 20 mmol/L Urea Nitrogen 7 6 - 23 mg/dL Creatinine 0.87 0.50 - 1.05 mg/dL eGFR >90 >60 mL/min/1.73m*2 Calcium 8.6 8.6 - 10.3 mg/dL Albumin 3.4 3.4 - 5.0 g/dL Alkaline Phosphatase 116 (H) 33 - 110 U/L Total Protein 6.6 6.4 - 8.2 g/dL AST 10 9 - 39 U/L Bilirubin, Total 0.8 0.0 - 1.2 mg/dL ALT 14 7 - 45 U/L Lipase Result Value Ref Range Lipase 5 (L) 9 - 82 U/L Lactate Result Value Ref Range Lactate 1.5 0.4 - 2.0 mmol/L Blood Culture Specimen: Peripheral Venipuncture; Blood culture Result Value Ref Range Blood Culture Loaded on Instrument - Culture in progress Sedimentation rate, automated Result Value Ref Range Sedimentation Rate 52 (H) 0 - 20 mm/h C-reactive protein Result Value Ref Range C-Reactive Protein 37.55 (H) <1.00 mg/dL Blood Culture Specimen: Peripheral Venipuncture; Blood culture Result Value Ref Range Blood Culture Loaded on Instrument - Culture in progress Urinalysis with Reflex Culture and Microscopic Result Value Ref Range Color, Urine Yellow Straw, Yellow Appearance, Urine Clear Clear Specific [place], Urine 1.008 1.005 - 1.035 pH, Urine 6.0 5.0, 5.5, 6.0, 6.5, 7.0, 7.5, 8.0 Protein, Urine NEGATIVE NEGATIVE mg/dL Glucose, Urine NEGATIVE NEGATIVE mg/dL Blood, Urine NEGATIVE NEGATIVE Ketones, Urine 5 (TRACE) (A) NEGATIVE mg/dL Bilirubin, Urine NEGATIVE NEGATIVE Urobilinogen, Urine <2.0 <2.0 mg/dL Nitrite, Urine NEGATIVE NEGATIVE Leukocyte Esterase, Urine NEGATIVE NEGATIVE hCG, Urine, Qualitative Result Value Ref Range HCG, Urine NEGATIVE NEGATIVE CT abdomen pelvis w IV contrast Result Date: 07/29/2023 STUDY: CT Abdomen and Pelvis with IV Contrast; 07/29/2023 at 2:39 AM INDICATION: UC, bleeding with pain. COMPARISON: None available. ACCESSION NUMBER(S): [id number] ORDERING CLINICIAN: MADELEINE ESTES TECHNIQUE: CT of the abdomen and pelvis was performed. Contiguous axial images were obtained at 3 mm slice thickness through the abdomen and pelvis. Coronal and sagittal reconstructions at 3 mm slice thickness were performed. Omnipaque 350 75 mL was administered intravenously. FINDINGS: LOWER CHEST: Cardiac size is normal. No pericardial effusion. Lung bases are clear. ABDOMEN: LIVER: No hepatomegaly. Smooth surface contour. Liver is low in attenuation, indicating hepatic steatosis. BILE DUCTS: No intrahepatic or extrahepatic biliary ductal dilatation. GALLBLADDER: The gallbladder is distended but otherwise unremarkable. STOMACH: No abnormalities identified. PANCREAS: No masses or ductal dilatation. SPLEEN: No splenomegaly or focal splenic lesion. ADRENAL GLANDS: No thickening or nodules. KIDNEYS AND URETERS: Kidneys are normal in size and location. No renal or ureteral calculi. PELVIS: BLADDER: No abnormalities identified. REPRODUCTIVE ORGANS: No acute uterine or adnexal pathology is identified. BOWEL: Appendix is not definitively identified. Terminal ileum is unremarkable. Extensive concentric wall thickening and mucosal enhancement is seen in the colon from the ascending colon to the rectum with a small amount of fluid throughout the nondilated colon. VESSELS: No abnormalities identified. Abdominal aorta is normal in caliber. PERITONEUM/RETROPERITONEUM/LYMPH NODES: No free fluid. No pneumoperitoneum. No lymphadenopathy. ABDOMINAL WALL: No abnormalities identified. SOFT TISSUES: No abnormalities identified. BONES: No acute fracture or aggressive osseous lesion. Extensive concentric wall thickening and mucosal enhancement of the length of the colon from the ascending colon to the rectum with fluid in the nondilated colon suggesting an acute infectious or inflammatory colitis. Crohn's disease or ulcerative colitis are considerations. Hepatic steatosis. Signed by Jimmy Solomon Scheduled medications piperacillin-tazobactam, 3.375 g, intravenous, q6h predniSONE, 40 mg, oral, Daily sertraline, 25 mg, oral, Daily Continuous medications sodium chloride 0.9%, 100 mL/hr PRN medications PRN medications: acetaminophen OR acetaminophen OR acetaminophen, ondansetron ODT OR ondansetron Assessment/Plan Principal Problem: Colitis Admit to general medicine under Dr. Bernal Acute, inpatient, telemetry Appreciate GI recommendations Continue IVF NPO except for ice chips and small sips of clear liquids Zofran for nausea Pain control Continue IV Zosyn Trend potassium and replace as needed CBC and BMP in AM Chronic conditions Ulcerative colitis Continue home medications as appropriate DVT prophylaxis No chemical prophylaxis due to blood in stool Ambulate I spent 25 minutes in the professional and overall care of this patient. Patient seen and evaluated agree with all the above for now continue with all present care and therapy and management GI to see her as well treat for colitis continue all other medications thank you Revision History Patient fully evaluated on July 31. Continue IV steroids. Monitor diarrhea. Recheck electrolytes magnesium level in AM. Patient fully evaluated on August 01. Still having significant diarrhea. Questran added to present regimen. Recheck labs in AM. Aureliano Dowell MD Department of Internal Medicine Gastroenterology Progress note Subjective GI is following for ulcerative colitis and C. difficile Today, patient endorses mild improvement in her abdominal pain. She had approximately 9 loose bowel movements yesterday most of which contain blood but that seems to be lessening. She endorses some mild nausea without vomiting and still has limited appetite Significant other at bedside Current Medication Current Facility-Administered Medications: acetaminophen (Tylenol) tablet 650 mg, 650 mg, oral, q4h PRN OR acetaminophen (Tylenol) oral liquid 650 mg, 650 mg, oral, q4h PRN OR acetaminophen (Tylenol) suppository 650 mg, 650 mg, rectal, q4h PRN, LAMIN Mitchell methylPREDNISolone sod succinate (SOLU-Medrol) injection 60 mg, 60 mg, intravenous, q24h, Ernesto Moreira MD, 60 mg at 07/31/23 1719 morphine injection 4 mg, 4 mg, intravenous, q4h PRN, LAMIN Mitchell, 4 mg at 08/01/23 0835 ondansetron ODT (Zofran-ODT) disintegrating tablet 4 mg, 4 mg, oral, q8h PRN OR ondansetron (Zofran) injection 4 mg, 4 mg, intravenous, q8h PRN, LAMIN Mitchell, 4 mg at 08/01/23 0349 polyethylene glycol (Glycolax, Miralax) powder 238 g, 238 g, oral, Once PRN, Lucina Lee PA-C sertraline (Zoloft) tablet 25 mg, 25 mg, oral, Daily, LAMIN Mitchell, 25 mg at 08/01/23 0835 sodium chloride 0.9% infusion, 100 mL/hr, intravenous, Continuous, LAMIN Mitchell, Last Rate: 100 mL/hr at 08/01/23 0957, 100 mL/hr at 08/01/23 0957 vancomycin (Vancocin) capsule 125 mg, 125 mg, oral, 4x daily, Ernesto Moreira MD, 125 mg at 08/01/23 0613 Past Medical History Active Ambulatory Problems Diagnosis Date Noted Anxiety 06/09/2023 Resolved Ambulatory Problems Diagnosis Date Noted No Resolved Ambulatory Problems No Additional Past Medical History PHYSICAL EXAM VS: BP 137/83 Pulse 67 Temp 36 C (96.8 F) Resp 16 Ht 1.6 m (5' 3 ) Wt 79.8 kg (176 lb) SpO2 94% Yes BMI 31.18 kg/m Body mass index is 31.18 kg/m . Physical Exam Constitutional: General: She is not in acute distress. Appearance: Normal appearance. HENT: Head: Normocephalic and atraumatic. Mouth/Throat: Mouth: Mucous membranes are moist. Pharynx: Oropharynx is clear. Eyes: General: No scleral icterus. Extraocular Movements: Extraocular movements intact. Conjunctiva/sclera: Conjunctivae normal. Pupils: Pupils are equal, round, and reactive to light. Cardiovascular: Rate and Rhythm: Normal rate and regular rhythm. Heart sounds: No murmur heard. Pulmonary: Effort: Pulmonary effort is normal. Breath sounds: No wheezing or rhonchi. Abdominal: General: Bowel sounds are normal. There is no distension. Palpations: Abdomen is soft. There is no mass. Tenderness: There is abdominal tenderness (Diffuse abdominal tenderness). Hernia: No hernia is present. Musculoskeletal: General: No swelling or deformity. Skin: General: Skin is warm. Coloration: Skin is not jaundiced. Neurological: General: No focal deficit present. Mental Status: She is alert and oriented to person, place, and time. Psychiatric: Mood and Affect: Mood normal. DATA Recent blood work was reviewed and discussed with the patient Results from last 7 days Lab Units 08/01/23 0455 WBC AUTO x10*3/uL 14.9* RBC AUTO x10*6/uL 2.85* HEMOGLOBIN g/dL 8.4* HEMATOCRIT % 27.1* MCV fL 95 MCHC g/dL 31.0* RDW % 12.8 PLATELETS AUTO x10*3/uL 504* Results from last 72 hours Lab Units 08/01/23 0455 SODIUM mmol/L 142 POTASSIUM mmol/L 3.8 CHLORIDE mmol/L 109* CO2 mmol/L 27 BUN mg/dL 7 CREATININE mg/dL 0.61 CALCIUM mg/dL 8.2* PROTEIN TOTAL g/dL 4.6* BILIRUBIN TOTAL mg/dL 0.2 ALK PHOS U/L 121* AST U/L 30 ALT U/L 58* Latest Reference Range & Units 07/30/23 05:03 Hepatitis B Surface AB <10.0 mIU/mL 190.0 (H) Hepatitis B Surface AG Nonreactive Nonreactive Hepatitis B Core AB; IgM Nonreactive Nonreactive (H): Data is abnormally high RADIOLOGY REVIEW NA ENDOSCOPIC REVIEW Colonoscopy by Dr Monsalve and Dr Moreira 07/30/2022 Severe pancolonic abnormal mucosa, consistent with ulcerative colitis; performed cold forceps biopsy to rule out IBD. Olguin score 3 with most severe disease in L colon with large deep ulcerations but contiguous inflammation erythema from rectum to cecum. Inability to intubate terminal ileum due to inflammation. No pseudomembranes. Concern symptoms are primarily related to underlying inflammatory bowel disease. IMPRESSION/RECOMMENDATIONS This is a 28-year-old woman known to Dr Monsalve with a history of ulcerative colitis, she became last year and her colitis completely went into remission. She had her baby few weeks ago and since then she has been having significant problems with severe diarrhea and rectal bleeding and abdominal pain. She was seen in office 07/27/22 and was planning to do a colonoscopy and start her on IV Remicade but she came to the hospital secondary because of worsening symptoms and concern for low-grade fever. Was found to have a positive C. difficile. Colonoscopy was done on Sunday 07/30 that showed severe colitis with deep ulcerations no clear evidence of pseudomembranes. I think this is severe ulcerative colitis with C. difficile could be contaminant but I do not think that this is the cause of her severity of the symptoms. She is already on vancomycin for C. difficile and is also on high-dose steroids for her colitis. She is not getting significantly better very quickly because of how severe her disease is. We will try to get her IV Remicade while she is in the hospital the first dose given how sick she has. Surgery was discussed given severity of disease Will continue to follow and create awaiting the tuberculosis test prior to starting Remicade. TB test was canceled by lab as it is not drawn or run here over the weekend. It was reordered for Wednesday 08/02 AM Will also discussed with the pharmacy starting Remicade as an inpatient. ( ) Images from the original note were not included. Ora Longoria is a 28 y.o. female on day 2 of admission presenting with Colitis. Subjective Patient fully evaluated on July 31 and still having significant diarrhea. Objective Last Recorded Vitals BP 119/59 Pulse 83 Temp 36.6 C (97.9 F) Resp 12 Wt 79.8 kg (176 lb) SpO2 94% Yes Intake/Output last 3 Shifts: Intake/Output Summary (Last 24 hours) at 07/31/2023 1717 Last data filed at 07/31/2023 0620 Gross per 24 hour Intake 1085 ml Output -- Net 1085 ml Admission Weight Weight: 79.8 kg (176 lb) (07/28/23 1922) Daily Weight 07/28/23 : 79.8 kg (176 lb) Image Results CT abdomen pelvis w IV contrast Narrative: STUDY: CT Abdomen and Pelvis with IV Contrast; 07/29/2023 at 2:39 AM INDICATION: UC, bleeding with pain. COMPARISON: None available. ACCESSION NUMBER(S): [id number] ORDERING CLINICIAN: MADELEINE ESTES TECHNIQUE: CT of the abdomen and pelvis was performed. Contiguous axial images were obtained at 3 mm slice thickness through the abdomen and pelvis. Coronal and sagittal reconstructions at 3 mm slice thickness were performed. Omnipaque 350 75 mL was administered intravenously. FINDINGS: LOWER CHEST: Cardiac size is normal. No pericardial effusion. Lung bases are clear. ABDOMEN: LIVER: No hepatomegaly. Smooth surface contour. Liver is low in attenuation, indicating hepatic steatosis. BILE DUCTS: No intrahepatic or extrahepatic biliary ductal dilatation. GALLBLADDER: The gallbladder is distended but otherwise unremarkable. STOMACH: No abnormalities identified. PANCREAS: No masses or ductal dilatation. SPLEEN: No splenomegaly or focal splenic lesion. ADRENAL GLANDS: No thickening or nodules. KIDNEYS AND URETERS: Kidneys are normal in size and location. No renal or ureteral calculi. PELVIS: BLADDER: No abnormalities identified. REPRODUCTIVE ORGANS: No acute uterine or adnexal pathology is identified. BOWEL: Appendix is not definitively identified. Terminal ileum is unremarkable. Extensive concentric wall thickening and mucosal enhancement is seen in the colon from the ascending colon to the rectum with a small amount of fluid throughout the nondilated colon. VESSELS: No abnormalities identified. Abdominal aorta is normal in caliber. PERITONEUM/RETROPERITONEUM/LYMPH NODES: No free fluid. No pneumoperitoneum. No lymphadenopathy. ABDOMINAL WALL: No abnormalities identified. SOFT TISSUES: No abnormalities identified. BONES: No acute fracture or aggressive osseous lesion. Impression: Extensive concentric wall thickening and mucosal enhancement of the length of the colon from the ascending colon to the rectum with fluid in the nondilated colon suggesting an acute infectious or inflammatory colitis. Crohn's disease or ulcerative colitis are considerations. Hepatic steatosis. Signed by Jimmy Solomon Physical Exam Relevant Results Assessment/Plan This patient currently has cardiac telemetry ordered; if you would like to modify or discontinue the telemetry order, click here to go to the orders activity to modify/discontinue the order. Principal Problem: Colitis Parish Bernal DO Physician Internal Medicine H&P Addendum Date of Service: 07/29/2023 10:31 AM Addendum Expand All Collapse All History Of Present Illness Ora Longoria is a 28-year-old female who presents to the emergency department with a fever, abdominal pain, diarrhea, nausea and vomiting. Her symptoms started 3 days ago. She does report some blood in her stool. She recently gave 6 weeks ago. She has a history of ulcerative colitis however she says that she did not have any flair ups during her . After she delivered she has been having some intermittent abdominal pain. 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 ED Course VS reviewed Labs reviewed, results below, potassium 2.6, replaced in ED, WBC 19.5 CT abd/pelvis reviewed, results below IVF IV Morphine and IV Zofran Blood cultures pending GI consult Past Medical History Ulcerative colitis Surgical History Surgical History No past surgical history on file. Social History Non-smoker, denies alcohol or illicit drug use, lives at home with family Family History Family History Family History Problem Relation Name Age of Onset Colon cancer Mother's Sister Allergies Cephalexin Review of Systems Constitutional: Positive for fever. HENT: Negative. Eyes: Negative. Respiratory: Negative. Cardiovascular: Negative. Gastrointestinal: Positive for abdominal pain, blood in stool, diarrhea, nausea and vomiting. Endocrine: Negative. Genitourinary: Negative. Musculoskeletal: Negative. Skin: Negative. Allergic/Immunologic: Negative. Neurological: Negative. Hematological: Negative. Psychiatric/Behavioral: Negative. Physical Exam Constitutional: General: She is not in acute distress. Appearance: Normal appearance. HENT: Nose: Nose normal. Mouth/Throat: Mouth: Mucous membranes are moist. Pharynx: Oropharynx is clear. Eyes: Extraocular Movements: Extraocular movements intact. Cardiovascular: Rate and Rhythm: Regular rhythm. Tachycardia present. Pulses: Normal pulses. Pulmonary: Effort: Pulmonary effort is normal. Breath sounds: Normal breath sounds. Abdominal: General: Bowel sounds are normal. Palpations: Abdomen is soft. Tenderness: There is abdominal tenderness. There is no rebound. Musculoskeletal: General: Normal range of motion. Cervical back: Normal range of motion. Skin: General: Skin is warm. Capillary Refill: Capillary refill takes less than 2 seconds. Neurological: General: No focal deficit present. Mental Status: She is alert and oriented to person, place, and time. Psychiatric: Mood and Affect: Mood normal. Behavior: Behavior normal. Last Recorded Vitals Blood pressure 127/78, pulse 110, temperature 37.8 C (100 F), temperature source Tympanic, resp. rate 19, height 1.6 m (5' 3 ), weight 79.8 kg (176 lb), SpO2 100 %. Relevant Results Results for orders placed or performed during the hospital encounter of 07/28/23 (from the past 24 hour(s)) CBC and Auto Differential Result Value Ref Range WBC 19.5 (H) 4.4 - 11.3 x10*3/uL nRBC 0.1 (H) 0.0 - 0.0 /100 WBCs RBC 3.82 (L) 4.00 - 5.20 x10*6/uL Hemoglobin 11.6 (L) 12.0 - 16.0 g/dL Hematocrit 33.7 (L) 36.0 - 46.0 % MCV 88 80 - 100 fL MCH 30.4 26.0 - 34.0 pg MCHC 34.4 32.0 - 36.0 g/dL RDW 12.3 11.5 - 14.5 % Platelets 539 (H) 150 - 450 x10*3/uL Neutrophils % 84.2 40.0 - 80.0 % Immature Granulocytes %, Automated 1.0 (H) 0.0 - 0.9 % Lymphocytes % 6.2 13.0 - 44.0 % Monocytes % 8.2 2.0 - 10.0 % Eosinophils % 0.1 0.0 - 6.0 % Basophils % 0.3 0.0 - 2.0 % Neutrophils Absolute 16.43 (H) 1.20 - 7.70 x10*3/uL Immature Granulocytes Absolute, Automated 0.20 0.00 - 0.70 x10*3/uL Lymphocytes Absolute 1.20 1.20 - 4.80 x10*3/uL Monocytes Absolute 1.59 (H) 0.10 - 1.00 x10*3/uL Eosinophils Absolute 0.01 0.00 - 0.70 x10*3/uL Basophils Absolute 0.06 0.00 - 0.10 x10*3/uL Magnesium Result Value Ref Range Magnesium 1.38 (L) 1.60 - 2.40 mg/dL Comprehensive metabolic panel Result Value Ref Range Glucose 125 (H) 74 - 99 mg/dL Sodium 135 (L) 136 - 145 mmol/L Potassium 2.6 (LL) 3.5 - 5.3 mmol/L Chloride 98 98 - 107 mmol/L Bicarbonate 23 21 - 32 mmol/L Anion Gap 17 10 - 20 mmol/L Urea Nitrogen 7 6 - 23 mg/dL Creatinine 0.87 0.50 - 1.05 mg/dL eGFR >90 >60 mL/min/1.73m*2 Calcium 8.6 8.6 - 10.3 mg/dL Albumin 3.4 3.4 - 5.0 g/dL Alkaline Phosphatase 116 (H) 33 - 110 U/L Total Protein 6.6 6.4 - 8.2 g/dL AST 10 9 - 39 U/L Bilirubin, Total 0.8 0.0 - 1.2 mg/dL ALT 14 7 - 45 U/L Lipase Result Value Ref Range Lipase 5 (L) 9 - 82 U/L Lactate Result Value Ref Range Lactate 1.5 0.4 - 2.0 mmol/L Blood Culture Specimen: Peripheral Venipuncture; Blood culture Result Value Ref Range Blood Culture Loaded on Instrument - Culture in progress Sedimentation rate, automated Result Value Ref Range Sedimentation Rate 52 (H) 0 - 20 mm/h C-reactive protein Result Value Ref Range C-Reactive Protein 37.55 (H) <1.00 mg/dL Blood Culture Specimen: Peripheral Venipuncture; Blood culture Result Value Ref Range Blood Culture Loaded on Instrument - Culture in progress Urinalysis with Reflex Culture and Microscopic Result Value Ref Range Color, Urine Yellow Straw, Yellow Appearance, Urine Clear Clear Specific [place], Urine 1.008 1.005 - 1.035 pH, Urine 6.0 5.0, 5.5, 6.0, 6.5, 7.0, 7.5, 8.0 Protein, Urine NEGATIVE NEGATIVE mg/dL Glucose, Urine NEGATIVE NEGATIVE mg/dL Blood, Urine NEGATIVE NEGATIVE Ketones, Urine 5 (TRACE) (A) NEGATIVE mg/dL Bilirubin, Urine NEGATIVE NEGATIVE Urobilinogen, Urine <2.0 <2.0 mg/dL Nitrite, Urine NEGATIVE NEGATIVE Leukocyte Esterase, Urine NEGATIVE NEGATIVE hCG, Urine, Qualitative Result Value Ref Range HCG, Urine NEGATIVE NEGATIVE CT abdomen pelvis w IV contrast Result Date: 07/29/2023 STUDY: CT Abdomen and Pelvis with IV Contrast; 07/29/2023 at 2:39 AM INDICATION: UC, bleeding with pain. COMPARISON: None available. ACCESSION NUMBER(S): [id number] ORDERING CLINICIAN: MADELEINE ESTES TECHNIQUE: CT of the abdomen and pelvis was performed. Contiguous axial images were obtained at 3 mm slice thickness through the abdomen and pelvis. Coronal and sagittal reconstructions at 3 mm slice thickness were performed. Omnipaque 350 75 mL was administered intravenously. FINDINGS: LOWER CHEST: Cardiac size is normal. No pericardial effusion. Lung bases are clear. ABDOMEN: LIVER: No hepatomegaly. Smooth surface contour. Liver is low in attenuation, indicating hepatic steatosis. BILE DUCTS: No intrahepatic or extrahepatic biliary ductal dilatation. GALLBLADDER: The gallbladder is distended but otherwise unremarkable. STOMACH: No abnormalities identified. PANCREAS: No masses or ductal dilatation. SPLEEN: No splenomegaly or focal splenic lesion. ADRENAL GLANDS: No thickening or nodules. KIDNEYS AND URETERS: Kidneys are normal in size and location. No renal or ureteral calculi. PELVIS: BLADDER: No abnormalities identified. REPRODUCTIVE ORGANS: No acute uterine or adnexal pathology is identified. BOWEL: Appendix is not definitively identified. Terminal ileum is unremarkable. Extensive concentric wall thickening and mucosal enhancement is seen in the colon from the ascending colon to the rectum with a small amount of fluid throughout the nondilated colon. VESSELS: No abnormalities identified. Abdominal aorta is normal in caliber. PERITONEUM/RETROPERITONEUM/LYMPH NODES: No free fluid. No pneumoperitoneum. No lymphadenopathy. ABDOMINAL WALL: No abnormalities identified. SOFT TISSUES: No abnormalities identified. BONES: No acute fracture or aggressive osseous lesion. Extensive concentric wall thickening and mucosal enhancement of the length of the colon from the ascending colon to the rectum with fluid in the nondilated colon suggesting an acute infectious or inflammatory colitis. Crohn's disease or ulcerative colitis are considerations. Hepatic steatosis. Signed by Jimmy Solomon Scheduled medications piperacillin-tazobactam, 3.375 g, intravenous, q6h predniSONE, 40 mg, oral, Daily sertraline, 25 mg, oral, Daily Continuous medications sodium chloride 0.9%, 100 mL/hr PRN medications PRN medications: acetaminophen OR acetaminophen OR acetaminophen, ondansetron ODT OR ondansetron Assessment/Plan Principal Problem: Colitis Admit to general medicine under Dr. Bernal Acute, inpatient, telemetry Appreciate GI recommendations Continue IVF NPO except for ice chips and small sips of clear liquids Zofran for nausea Pain control Continue IV Zosyn Trend potassium and replace as needed CBC and BMP in AM Chronic conditions Ulcerative colitis Continue home medications as appropriate DVT prophylaxis No chemical prophylaxis due to blood in stool Ambulate I spent 25 minutes in the professional and overall care of this patient. Patient seen and evaluated agree with all the above for now continue with all present care and therapy and management GI to see her as well treat for colitis continue all other medications thank you Revision History Patient fully evaluated on July 31. Continue IV steroids. Monitor diarrhea. Recheck electrolytes magnesium level in AM. Aureliano Dowell MD Ora Longoria is a 28 y.o. female on day 2 of admission presenting with Colitis. Subjective Patient doing okay but she continues to problems with significant diarrhea and bleeding. She is also having a lot of abdominal pain. She feels very tired today and she is sleeping all the time. She is also on very poor appetite and is not eating well. Objective Physical Exam Vitals reviewed. Constitutional: Appearance: Normal appearance. Comments: Appears weak and tired. Cardiovascular: Rate and Rhythm: Normal rate and regular rhythm. Pulses: Normal pulses. Pulmonary: Effort: Pulmonary effort is normal. Breath sounds: Normal breath sounds. Abdominal: General: Abdomen is flat. Bowel sounds are normal. There is no distension. Palpations: Abdomen is soft. Tenderness: There is generalized abdominal tenderness. Musculoskeletal: General: Normal range of motion. Neurological: Mental Status: She is alert. Last Recorded Vitals Blood pressure 115/71, pulse 66, temperature 35.9 C (96.6 F), temperature source Temporal, resp. rate 12, height 1.6 m (5' 3 ), weight 79.8 kg (176 lb), SpO2 95 %, currently . Intake/Output last 3 Shifts: I/O last 3 completed shifts: In: 3195 (40 mL/kg) [I.V.:2595 (32.5 mL/kg); IV Piggyback:600] Out: 300 (3.8 mL/kg) [Urine:300 (0.1 mL/kg/hr)] Weight: 79.8 kg Assessment/Plan This is a 28-year-old woman known to me from the office with a history of ulcerative colitis that he took properly in the past, she became last year and her colitis completely went into remission. She had her baby few weeks ago and since then she has been having significant problems with severe diarrhea and rectal bleeding and abdominal pain. She came to my office earlier this week and was planning to do a colonoscopy and started her on IV Remicade but she came to the hospital secondary because of worsening symptoms and concern for low-grade fever. Was found to have a positive C. difficile. Colonoscopy was done on Wednesday that showed severe colitis with deep ulcerations no clear evidence of pseudomembranes. I think this is severe ulcerative colitis with C. difficile could be contaminant but I do not think that this is the cause of her severity of the symptoms. She is already on vancomycin for C. difficile and is also on high-dose steroids for her colitis. She is not getting significantly better very quickly because of how severe her disease is. We will try to get her IV Remicade while she is in the hospital the first dose given how sick she has. I did discuss with her and her boyfriend Today the possibility of needing surgery given how severe her colitis is. Will continue to follow and create awaiting the tuberculosis test prior to starting Remicade. Will also discussed with the pharmacy starting Remicade as an inpatient. Darius Monsalve MD Ora Longoria is a 28 y.o. female on day 1 of admission presenting with Colitis. Subjective Seen today looks like an ulcerative colitis I will look to see if it is also C. difficile but I now the colonoscopy showed a severe pancolonic abnormal mucosa consistent with ulcerative colitis no pseudomembranes it would argue against C. difficile Solu-Medrol 20 mg 3 times a day and labs for Remicade initiation Objective Last Recorded Vitals BP 146/72 Pulse 88 Temp 36.6 C (97.9 F) (Temporal) Resp 16 Wt 79.8 kg (176 lb) SpO2 99% Yes Intake/Output last 3 Shifts: Intake/Output Summary (Last 24 hours) at 07/30/20231938 Last data filed at 07/30/2023 1500 Gross per 24 hour Intake 2110 ml Output 300 ml Net 1810 ml Admission Weight Weight: 79.8 kg (176 lb) (07/28/231921) Daily Weight 07/28/23 : 79.8 kg (176 lb) Image Results CT abdomen pelvis w IV contrast Narrative: STUDY: CT Abdomen and Pelvis with IV Contrast; 07/29/2023 at 2:39 AM INDICATION: UC, bleeding with pain. COMPARISON: None available. ACCESSION NUMBER(S): [id number] ORDERING CLINICIAN: MADELEINE ESTES TECHNIQUE: CT of the abdomen and pelvis was performed. Contiguous axial images were obtained at 3 mm slice thickness through the abdomen and pelvis. Coronal and sagittal reconstructions at 3 mm slice thickness were performed. Omnipaque 350 75 mL was administered intravenously. FINDINGS: LOWER CHEST: Cardiac size is normal. No pericardial effusion. Lung bases are clear. ABDOMEN: LIVER: No hepatomegaly. Smooth surface contour. Liver is low in attenuation, indicating hepatic steatosis. BILE DUCTS: No intrahepatic or extrahepatic biliary ductal dilatation. GALLBLADDER: The gallbladder is distended but otherwise unremarkable. STOMACH: No abnormalities identified. PANCREAS: No masses or ductal dilatation. SPLEEN: No splenomegaly or focal splenic lesion. ADRENAL GLANDS: No thickening or nodules. KIDNEYS AND URETERS: Kidneys are normal in size and location. No renal or ureteral calculi. PELVIS: BLADDER: No abnormalities identified. REPRODUCTIVE ORGANS: No acute uterine or adnexal pathology is identified. BOWEL: Appendix is not definitively identified. Terminal ileum is unremarkable. Extensive concentric wall thickening and mucosal enhancement is seen in the colon from the ascending colon to the rectum with a small amount of fluid throughout the nondilated colon. VESSELS: No abnormalities identified. Abdominal aorta is normal in caliber. PERITONEUM/RETROPERITONEUM/LYMPH NODES: No free fluid. No pneumoperitoneum. No lymphadenopathy. ABDOMINAL WALL: No abnormalities identified. SOFT TISSUES: No abnormalities identified. BONES: No acute fracture or aggressive osseous lesion. Impression: Extensive concentric wall thickening and mucosal enhancement of the length of the colon from the ascending colon to the rectum with fluid in the nondilated colon suggesting an acute infectious or inflammatory colitis. Crohn's disease or ulcerative colitis are considerations. Hepatic steatosis. Signed by Jimmy Solomon So far no abdominal pain or shortness of breath weakness though no fever Physical Exam She is awake and alert and oriented pale in color she just had a baby just short time ago Relevant Results Assessment/Plan This patient currently has cardiac telemetry ordered; if you would like to modify or discontinue the telemetry order, click here to go to the orders activity to modify/discontinue the order. Principal Problem: Colitis Go to look up her cultures I see here on infection C. difficile but I am going to verify that it looks like ulcerative colitis possibly will discontinue and I will review her complete blood count as well thank you Parish Bernal DO 07/30/23 1419 Discharge Planning Support Systems Spouse/significant other Type of Residence Private residence Who is requesting discharge planning? Provider Patient expects to be discharged to: home Pt has been out of room for colonoscopy or with MD. Pt admit for colitis, positive C. Diff. Plan will be for home at discharge. Team to follow up. Shantell Nation RN [facility] Medication History Review Ora Longoria is a 28 y.o. female admitted for Colitis. Pharmacy reviewed the patient's [id number] medications and allergies for accuracy. The list below reflectives the updated MEDICAL RADIATION THERAPIST list. Please review each medication in order reconciliation for additional clarification and justification. (Not in a hospital admission) The list below reflectives the updated allergy list. Please review each documented allergy for additional clarification and justification. Allergies Reviewed by Jane Mccarthy CPhT on 07/29/2023 Severity Reactions Comments Cephalexin Low Itching, Rash Below are additional concerns with the patient's MEDICAL RADIATION THERAPIST list. See MEDICAL RADIATION THERAPIST med list Jane Mccarthy CPhT Emergency Medicine Transition of Care Note. I received Ora Longoria in signout from Dr. Estes. Please see the previous ED provider note for all HPI, PE and MDM up to the time of signout at 0100. This is in addition to the primary record. In brief Ora Longoria is an 28 y.o. female presenting for Chief Complaint Patient presents with Abdominal Pain Pt has abdominal pain and rectal bleeding x 6 weeks, hx Ulcerative colitis At the time of signout we were awaiting: CT scan and reevaluation ED Course as of 07/29/23 0455 [facility] Jul 29, 2023 0329 Reassessed patient and updated with findings thus far. Patient notes she does continue to have small amount of nausea. Will order additional Zofran. Discussed with patient plan for admission and she agrees at this time. [JA] [address] Bernal and the admitting TRACK REPAIR SUPERVISOR and they accept the patient to their service. [JA] ED Course User Index [JA] Adal Abdalla DO Diagnoses as of 07/29/23 0455 Generalized abdominal pain Fever, unspecified fever cause Hypokalemia Hypomagnesemia Colitis Medical Decision Making Reevaluated patient and she is feeling better however continues to have nausea. Updated patient with CT and lab findings. Heart rate significantly improved. Blood pressure stable. Patient treated with IV Zosyn. CT scan does show colitis. Given the fever and tachycardia we will continue antibiotic coverage. GI consulted. Patient admitted for further evaluation. Final diagnoses: [R10.84] Generalized abdominal pain [R50.9] Fever, unspecified fever cause [E87.6] Hypokalemia [E83.42] Hypomagnesemia [K52.9] Colitis Procedure Procedures Adal Abdalla DO documented in this encounter [facility] Work Phone: 08-06-2023 Hospital Discharge instructions Shama June RN - 08/06/2023 11:50 AM EST Plan for another Remicade infusion in 2 weeks documented in this encounter [facility] Work Phone: 08-06-2023 Plan of care note The patient's goals for the shift include The clinical goals for the shift include Patient will verbalize decrease abdominal discomforts Problem: Pain Goal: My pain/discomfort is manageable Outcome: Progressing Problem: Safety Goal: Patient will be injury free during hospitalization Outcome: Progressing Goal: I will remain free of falls Outcome: Progressing Problem: Daily Care Goal: Daily care needs are met Outcome: Progressing Problem: Psychosocial Needs Goal: Demonstrates ability to cope with hospitalization/illness Outcome: Progressing Goal: Collaborate with me, my family, and caregiver to identify my specific goals Outcome: Progressing Problem: Discharge Barriers Goal: My discharge needs are met Outcome: Progressing Problem: Pain Goal: Walks with improved pain control throughout the shift Outcome: Progressing Goal: Performs ADL's with improved pain control throughout shift Outcome: Progressing Goal: Free from opioid side effects throughout the shift Outcome: Progressing Goal: Free from acute confusion related to pain meds throughout the shift Outcome: [facility] Work Phone: 08-06-2023 Plan of care note The patient's goals for the shift include decrease abdominal pain The clinical goals for the shift include Patient will be able to manage her pain level by the end of shift. Problem: Pain Goal: My pain/discomfort is manageable Outcome: Progressing Problem: Safety Goal: Patient will be injury free during hospitalization Outcome: Progressing Goal: I will remain free of falls Outcome: Progressing Problem: Psychosocial Needs Goal: Demonstrates ability to cope with hospitalization/illness Outcome: Progressing Goal: Collaborate with me, my family, and caregiver to identify my specific goals Outcome: [facility] 08-05-2023 Consult note Associated Order (s): IP CONSULT TO NUTRITION SERVICES Nutrition Initial Assessment: Nutrition Assessment Reason for Assessment: Length of stay Patient is a 28 y.o. female presenting with: colitis. Nutrition History: Energy Intake: Poor < 50 % Food and Nutrient History: Pt reports poor appetite and intake x a couple of weeks, has been eating bites of things. Was not drinking any ONS at home. States appetite is starting to get better, ate rodney for breakfast and a burger and chicken sandiwch for lunch. Still having abdominal pain, diarrhea, and some nausea but states diarrhea is slightly improved. Vitamin/Herbal Supplement Use: vitamin per home med list Food Allergies/Intolerances: None GI Symptoms: Diarrhea, Nausea, and Abdominal pain Oral Problems: None Anthropometrics: Height: 160 cm (5' 3 ) Weight: 79.8 kg (176 lb) BMI (Calculated): 31.18 IBW/kg (Dietitian Calculated): 52.3 kg Weight History: Wt Readings from Last 10 Encounters: 07/28/23 79.8 kg (176 lb) 07/27/23 82.6 kg (182 lb) 01/11/23 83.5 kg ( wt?) Weight Change %: Weight History / % Weight Change: Pt reports ~1 week after having her baby she weighed 189# and weighed 176# prior to admission. Difficult to determine significant wt changes due to illness as pt also recently had a baby and there are weight changes associated with this event. Nutrition Focused Physical Exam Findings: Subcutaneous Fat Loss: Orbital Fat Pads: Well nourshed (slightly bulging fat pads) Buccal Fat Pads: Well nourished (full, rounded cheeks) Triceps: Well nourished (ample fat tissue) Muscle Wasting: Temporalis: Well nourished (well-defined muscle) Pectoralis (Clavicular Region): Well nourished (clavicle not visible) Deltoid/Trapezius: Well nourished (rounded appearance at arm, shoulder, neck) Interosseous: Well nourished (muscle bulges) Edema: Edema: none Physical Findings: Mouth: Negative Nails: Negative Skin: Negative Nutrition Significant Labs: Reviewed Nutrition Specific Medications: Reviewed I/O: Last BM Date: 08/05/23; Stool Appearance: Loose, Bloody (08/05/23 0745) Dietary Orders (From admission, onward) Start Ordered 08/05/23 1607 Oral nutritional supplements Until discontinued Comments: reno Question Answer Comment Deliver with All meals Select supplement: Magic Cup 08/05/23 1607 08/01/23 757 May Participate in Room Service Once Question: . Answer: Yes 08/01/23 0415 07/30/23 1815 Adult diet Regular Diet effective now Question: Diet type Answer: Regular 07/30/231814 Estimated Needs: Total Energy Estimated Needs (kCal): 1995 kCal Method for Estimating Needs: 25 kcal/kg ABW (add 300-400 kcal/d if pt is ) Total Protein Estimated Needs (g): 80 g Method for Estimating Needs: 1 g/kg ABW Total Fluid Estimated Needs (mL): 1994 mL Method for Estimating Needs: 25 ml/kg ABW Nutrition Diagnosis Malnutrition Diagnosis Patient has Malnutrition Diagnosis: No Nutrition Diagnosis Patient has Nutrition Diagnosis: Yes Diagnosis Status (1): New Nutrition Diagnosis 1: Inadequate oral intake Related to (1): multiple GI symptoms associated with ulcerative colitis flare up As Evidenced by (1): reports of eating only bites of meals and meeting <75% of estimated needs x a couple of weeks Nutrition Interventions/Recommendations Nutrition Prescription: Individualized Nutrition Prescription Provided for : Regular diet with ONS Nutrition Interventions: Food and/or Nutrient Delivery Interventions Interventions: Meals and snacks, Medical food supplement Meals and Snacks: General healthful diet Goal: Consumes 3 meals per day Medical Food Supplement: Commercial beverage Goal: Magic cup TID (290 kcal, 9 g protein per serving) vanilla Nutrition Education: Briefly discussed use of ONS at home if intake remains poor. Discussed varieties of ONS and where to purchase. Nutrition Monitoring and Evaluation Food/Nutrient Related History Monitoring Monitoring and Evaluation Plan: Energy intake, Amount of food Energy Intake: Estimated energy intake Criteria: Pt meets >75% of estimated energy needs Amount of Food: Estimated amout of food, Medical food intake Criteria: Pt consumes >75% of meals and supplements Body Composition/Growth/Weight History Monitoring and Evaluation Plan: Weight Weight: Measured weight Criteria: Maintains stable weight Nutrition Focused Physical Findings Monitoring and Evaluation Plan: Digestive System Digestive System: Nausea, Diarrhea, Decrease in appetite, Other (Comment) (abdominal pain) Criteria: Improvement in GI symptoms Time Spent/Follow-up Reminder: Time Spent (min): 60 minutes Last Date of Nutrition Visit: 08/05/23 Nutrition Follow-Up Needed?: 3-5 days Follow up Comment: 08/12-08/13 [facility] 08-05-2023 Consult note Associated Order (s): IP CONSULT TO NUTRITION SERVICES Nutrition Initial Assessment: Nutrition Assessment Reason for Assessment: Length of stay Patient is a 28 y.o. female presenting with: colitis. Nutrition History: Energy Intake: Poor < 50 % Food and Nutrient History: Pt reports poor appetite and intake x a couple of weeks, has been eating bites of things. Was not drinking any ONS at home. States appetite is starting to get better, ate rodney for breakfast and a burger and chicken sandiwch for lunch. Still having abdominal pain, diarrhea, and some nausea but states diarrhea is slightly improved. Vitamin/Herbal Supplement Use: vitamin per home med list Food Allergies/Intolerances: None GI Symptoms: Diarrhea, Nausea, and Abdominal pain Oral Problems: None Anthropometrics: Height: 160 cm (5' 3 ) Weight: 79.8 kg (176 lb) BMI (Calculated): 31.18 IBW/kg (Dietitian Calculated): 52.3 kg Weight History: Wt Readings from Last 10 Encounters: 07/28/23 79.8 kg (176 lb) 07/27/23 82.6 kg (182 lb) 01/11/23 83.5 kg ( wt?) Weight Change %: Weight History / % Weight Change: Pt reports ~1 week after having her baby she weighed 189# and weighed 176# prior to admission. Difficult to determine significant wt changes due to illness as pt also recently had a baby and there are weight changes associated with this event. Nutrition Focused Physical Exam Findings: Subcutaneous Fat Loss: Orbital Fat Pads: Well nourshed (slightly bulging fat pads) Buccal Fat Pads: Well nourished (full, rounded cheeks) Triceps: Well nourished (ample fat tissue) Muscle Wasting: Temporalis: Well nourished (well-defined muscle) Pectoralis (Clavicular Region): Well nourished (clavicle not visible) Deltoid/Trapezius: Well nourished (rounded appearance at arm, shoulder, neck) Interosseous: Well nourished (muscle bulges) Edema: Edema: none Physical Findings: Mouth: Negative Nails: Negative Skin: Negative Nutrition Significant Labs: Reviewed Nutrition Specific Medications: Reviewed I/O: Last BM Date: 08/05/23; Stool Appearance: Loose, Bloody (08/05/23 0745) Dietary Orders (From admission, onward) Start Ordered 08/05/23 1607 Oral nutritional supplements Until discontinued Comments: reno Question Answer Comment Deliver with All meals Select supplement: Magic Cup 08/05/23 1607 08/01/23 0416 May Participate in Room Service Once Question: . Answer: Yes 08/01/23 0415 07/30/231814 Adult diet Regular Diet effective now Question: Diet type Answer: Regular 07/30/231814 Estimated Needs: Total Energy Estimated Needs (kCal): 1994 kCal Method for Estimating Needs: 25 kcal/kg ABW (add 300-400 kcal/d if pt is ) Total Protein Estimated Needs (g): 80 g Method for Estimating Needs: 1 g/kg ABW Total Fluid Estimated Needs (mL): 1994 mL Method for Estimating Needs: 25 ml/kg ABW Nutrition Diagnosis Malnutrition Diagnosis Patient has Malnutrition Diagnosis: No Nutrition Diagnosis Patient has Nutrition Diagnosis: Yes Diagnosis Status (1): New Nutrition Diagnosis 1: Inadequate oral intake Related to (1): multiple GI symptoms associated with ulcerative colitis flare up As Evidenced by (1): reports of eating only bites of meals and meeting <75% of estimated needs x a couple of weeks Nutrition Interventions/Recommendations Nutrition Prescription: Individualized Nutrition Prescription Provided for : Regular diet with ONS Nutrition Interventions: Food and/or Nutrient Delivery Interventions Interventions: Meals and snacks, Medical food supplement Meals and Snacks: General healthful diet Goal: Consumes 3 meals per day Medical Food Supplement: Commercial beverage Goal: Magic cup TID (290 kcal, 9 g protein per serving) reno Nutrition Education: Briefly discussed use of ONS at home if intake remains poor. Discussed varieties of ONS and where to purchase. Nutrition Monitoring and Evaluation Food/Nutrient Related History Monitoring Monitoring and Evaluation Plan: Energy intake, Amount of food Energy Intake: Estimated energy intake Criteria: Pt meets >75% of estimated energy needs Amount of Food: Estimated amout of food, Medical food intake Criteria: Pt consumes >75% of meals and supplements Body Composition/Growth/Weight History Monitoring and Evaluation Plan: Weight Weight: Measured weight Criteria: Maintains stable weight Nutrition Focused Physical Findings Monitoring and Evaluation Plan: Digestive System Digestive System: Nausea, Diarrhea, Decrease in appetite, Other (Comment) (abdominal pain) Criteria: Improvement in GI symptoms Time Spent/Follow-up Reminder: Time Spent (min): 60 minutes Last Date of Nutrition Visit: 08/05/23 Nutrition Follow-Up Needed?: 3-5 days Follow up Comment: 08/12-08/13 [facility] Associated Order(s): IP CONSULT TO ACUTE CARE SURGERY Please see Consult Note from 08/03/23. Reason For Consult Severe ulcerative colitis History Of Present Illness Ora Longoria is a 28 y.o. female with PMH significant for KAVITHA and UC who presented to [facility] ED on 07/28 for abd pain. Pt closely follows with Dr. Monsalve for UC and was planning to start remicade as an outpatient, but her sxs worsened so she presented to the ED. She was found to have positive c diff PCR but negative EIA, suggesting colonization rather than acute infection. She had colonoscopy performed on 07/30: Severe, continuous pancolonic edematous, erythematous, friable and ulcerated mucosa with loss of folds and loss of vascular pattern, consistent with ulcerative colitis; performed cold forceps biopsy to rule out IBD. Concern for contiguous severe inflammation from rectum to cecum. Worst disease noted in L colon with multiple large deep ulcers. Unable to intubate terminal ileum due to significant inflammation of ileocecal valve and inability to identify orifice. Retroflexion not attempted due to severity of inflammation. Biopsies collected from R colon, L colon, and rectum. No pseudomembranes or strictures seen. Pathology demonstrated active chronic colitis with no granulomas or dysplasia. Pt states that she was first diagnosed with UC in 2014 when she was a senior in high school. She has family history of IBD, but no one has had surgical intervention for their disease. She was in remission while she was , but since she delivered about 2 months ago, her symptoms have returned. She reports that every time she eats she has to run to the bathroom within 5 minutes d/t diarrhea. She says she is barely able to hold her baby because of frequent stools and severe abd cramping. She reportedly had a fever and N/V prior to admission which is what prompted her presentation to the ED. She notes 7-8 episodes of diarrhea with blood on an average, but sometimes more. She has no surgical history and only takes medication for anxiety and UC. Past Medical History She has no past medical history on file. Surgical History She has no past surgical history on file. Social History She reports that she has never smoked. She has never used smokeless tobacco. She reports that she does not drink alcohol and does not use drugs. Family History Family History Problem Relation Name Age of Onset Colon cancer Mother's Sister Allergies Cephalexin Physical Exam Physical Exam Constitutional: General: She is not in acute distress. Appearance: She is ill-appearing. She is not toxic-appearing. HENT: Head: Comments: Flushed cheeks Mouth/Throat: Mouth: Mucous membranes are moist. Pulmonary: Effort: Pulmonary effort is normal. No respiratory distress. Abdominal: General: There is no distension. Palpations: Abdomen is soft. Tenderness: There is no abdominal tenderness. Skin: General: Skin is warm and dry. Coloration: Skin is not jaundiced or pale. Neurological: Mental Status: She is alert and oriented to person, place, and time. Psychiatric: Mood and Affect: Mood normal. Behavior: Behavior normal. Last Recorded Vitals Blood pressure (!) 163/92, pulse 65, temperature 36.8 C (98.2 F), temperature source Temporal, resp. rate 16, height 1.6 m (5' 3 ), weight 79.8 kg (176 lb), SpO2 97 %, currently . Relevant Results Calprotectin, Stool Date/Time Value Ref Range Status 07/29/2023 04:45 PM >3000 (H) <=49 ug/g Final Comment: REFERENCE INTERVAL: Calprotectin, Fecal by Immunoassay Less than 50 ug/g.........Normal 50-120 ug/g...............Borderline elevated, test should be re-evaluated in 4-6 weeks. 121 ug/g or greater.......Elevated Performed By: [facility] [address] [place] [id number] Lead Architect: Rahul Carpenter MD, PhD CLIA Number: [id number] C-Reactive Protein Date/Time Value Ref Range Status 08/01/2023 04:55 AM 10.59 (H) <1.00 mg/dL Final C. difficile, PCR Date/Time Value Ref Range Status 07/29/2023 04:45 PM Detected (A) Not Detected Final C. difficile (Toxin A/B) Date/Time Value Ref Range Status 07/29/2023 04:45 PM Negative Negative, Indeterminate Final WBC Date/Time Value Ref Range Status 08/02/2023 05:04 AM 14.7 (H) 4.4 - 11.3 x10*3/uL Final Hemoglobin Date/Time Value Ref Range Status 08/02/2023 05:04 AM 8.5 (L) 12.0 - 16.0 g/dL Final Assessment/Plan Ora Longoria is a 28 y.o. female with PMH significant for KAVITHA and UC who presented to [facility] ED on 07/28 for abd pain. Pt closely follows with Dr. Monsalve for UC and was planning to start remicade as an outpatient, but her sxs worsened so she presented to the ED. Surgery was consulted to establish care for possible surgical intervention in the future. Pt is currently awaiting clearance of TB test prior to initiating remicade during admission. She states that she would potentially be interested in surgical intervention if the remicade does not provide relief. We discussed that surgical treatment typically includes total colectomy with ileostomy creation and she states she was familiar with this. Impression: Severe Ulcerative Colitis in acute flare C diff colonization Recommendations: - No immediate surgical intervention - Pt would like to try remicade before considering surgery and agree this is a reasonable plan - Pt can follow-up with Dr. Iniguez as an outpatient once acute episode is resolved to further discuss surgical options in interested - Remainder of care per GI Patient discussed with Dr. Iniguez who will see the patient in the morning. I spent 45 minutes in the professional and overall care of this patient. Regina Candelaria PA-C Associated Order(s): Inpatient consult to Gastroenterology Inpatient consult to Gastroenterology Consult performed by: Justin Vazquez MD Consult ordered by: Leela Menezes, [employer] 28-year-old with history of ulcerative colitis (diagnosed in 2014, no history of surgery) previously used to live in [place], was previously on mesalamine p.o. and suppositories, was planned for Remicade however got , during her symptoms subsided, then worsened again after delivery. She recently saw Dr. Monsalve for worsening abdominal pain and bloody diarrhea since 06/30/2023. She mentioned that she received penicillin during her admission for delivery in May 2023. She mentions having a temperature of 102 on 07/24/2023, 1 episode of vomiting with significant left lower quadrant pain. EGD never Colonoscopy 08/2022 as per patient Maternal aunt had ulcerative colitis, distant cousins have Crohn's disease, paternal great aunt had colon cancer Normally 5-8 bowel movements per day, can go up to 10-15 bowel movements per day during flareups Was taking ibuprofen recently, denies marijuana drug use smoking mild diffuse The note was created using voice recognition disposal man software. Despite proofreading, unintentional typographical errors may be present. Please contact the GI office with any questions or concerns. Current Medications: reviewed A 10 point review of system is negative except for what is mentioned in the HPI Follow up with GI was advised Vital Signs: Reviewed Physical Exam: General: no apparent distress, pleasant and cooperative Skin: Warm and dry, no jaundice HEENT: No scleral icterus, no conjunctival pallor, normocephalic, atraumatic, mucous membranes moist Neck: atraumatic, trachea midline, no JVD Chest: decreased air entry to auscultation bilaterally. No wheezes, rales, or rhonchi CV: Regular rate and rhythm. Positive S1/S2 Abdomen: no distension, +BS, soft, mild diffuse-tender to palpation, no rebound tenderness, no guarding, no rigidity, no discernible ascites Extremities: no lower extremity edema, Chronic pigmentary changes, no cyanosis Neurological: A&Ox3 , no asterixis Psychiatric: cooperative Investigations: Labs, radiological imaging and cardiac work up were reviewed 1-abdominal pain and bloody diarrhea in the setting of history of ulcerative colitis described as above, saw Dr. Monsalve 2 days prior to presentation, CRP 37, currently on prednisone 40 mg daily, check C. difficile, ova parasite, GI PCR, calprotectin, was given antibiotics in the ED, continue Solu-Medrol, plan for colonoscopy if no contraindications, Dr. Monsalve started process for getting Remicade, serial abdominal exams, avoid NSAIDs, will follow documented in this encounter [facility] Work Phone: 08-05-2023 Plan of care note The patient's goals for the shift include The clinical goals for the shift include Patient will have no infusion reaction during medication administration Over the shift, the patient did not make progress toward the following goals. Patient will be able to manage her pain level. [facility] 08-04-2023 Consult note Associated Order (s): IP CONSULT TO ACUTE CARE SURGERY Please see Consult Note from 08/03/23. [facility] Work Phone: 08-03-2023 Plan of care note The patient's goals for the shift include The clinical goals for the shift include maintain safety, provide comfort, pain management Problem: Pain Goal: My pain/discomfort is manageable Outcome: Progressing Problem: Safety Goal: Patient will be injury free during hospitalization Outcome: Progressing Goal: I will remain free of falls Outcome: Progressing Problem: Daily Care Goal: Daily care needs are met Outcome: Progressing Problem: Psychosocial Needs Goal: Demonstrates ability to cope with hospitalization/illness Outcome: Progressing Goal: Collaborate with me, my family, and caregiver to identify my specific goals Outcome: Progressing Problem: Discharge Barriers Goal: My discharge needs are met Outcome: Progressing Problem: Pain Goal: Walks with improved pain control throughout the shift Outcome: Progressing Goal: Performs ADL's with improved pain control throughout shift Outcome: Progressing Goal: Free from opioid side effects throughout the shift Outcome: Progressing Goal: Free from acute confusion related to pain meds throughout the shift Outcome: Progressing [facility] Work Phone: 08-03-2023 Consult note Formatting of th is note is different from the original. Reason For Consult Severe ulcerative colitis History Of Present Illness Ora Longoria is a 28 y.o. female with PMH significant for KAVITHA and UC who presented to [facility] ED on 07/28 for abd pain. Pt closely follows with Dr. Monsalve for UC and was planning to start remicade as an outpatient, but her sxs worsened so she presented to the ED. She was found to have positive c diff PCR but negative EIA, suggesting colonization rather than acute infection. She had colonoscopy performed on 07/30: Severe, continuous pancolonic edematous, erythematous, friable and ulcerated mucosa with loss of folds and loss of vascular pattern, consistent with ulcerative colitis; performed cold forceps biopsy to rule out IBD. Concern for contiguous severe inflammation from rectum to cecum. Worst disease noted in L colon with multiple large deep ulcers. Unable to intubate terminal ileum due to significant inflammation of ileocecal valve and inability to identify orifice. Retroflexion not attempted due to severity of inflammation. Biopsies collected from R colon, L colon, and rectum. No pseudomembranes or strictures seen. Pathology demonstrated active chronic colitis with no granulomas or dysplasia. Pt states that she was first diagnosed with UC in 2014 when she was a senior in high school. She has family history of IBD, but no one has had surgical intervention for their disease. She was in remission while she was , but since she delivered about 2 months ago, her symptoms have returned. She reports that every time she eats she has to run to the bathroom within 5 minutes d/t diarrhea. She says she is barely able to hold her baby because of frequent stools and severe abd cramping. She reportedly had a fever and N/V prior to admission which is what prompted her presentation to the ED. She notes 7-8 episodes of diarrhea with blood on an average, but sometimes more. She has no surgical history and only takes medication for anxiety and UC. Past Medical History She has no past medical history on file. Surgical History She has no past surgical history on file. Social History She reports that she has never smoked. She has never used smokeless tobacco. She reports that she does not drink alcohol and does not use drugs. Family History Family History Problem Relation Name Age of Onset Colon cancer Mother's Sister Allergies Cephalexin Physical Exam Physical Exam Constitutional: General: She is not in acute distress. Appearance: She is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 that on August 03, 2014 Dr. Elise did a colonoscopy for similar symptomatology with [...] file Gets together: Not on file Attends adventist service: Not on file Active member of [...] types were placed in this encounter. Nikhil Mckeon MD documented in this encounter Grace Fair RN - 07/28/2019 3:28 PM Mary Kate Briceno RN - 07/28/2019 1:15 PM EST Nursing Notes (unrecognized section and content) dci teaching completed. Printed copy given to pt. Mom Chantel driving patient home documented in this encounter Op Note - Nikhil Mckeon MD - 07/28/2019 3:24 PM EST Miscellaneous Notes (unrecog nized section and content) ORA LONGORIA [facility] [id number] N [id number] 1995 DATE 07/28/2019 OPERATIVE REPORT SURGEON NIKHIL MCKEON MD, [facility] PREOPERATIVE DIAGNOSES 1. Personal history of [...] ongoing management based on pathology reports. NIKHIL MCKEON MD, FACS D 07/28/2019 15:02 [id number] 07/28/2019 15:19 DED/MODL cc JANELLE ROBISON PA-C : documented in this encounter Care Teams (unrecognized sec tion and content) Credit Officer Relationship Specialty Start Date End Date Nikhil Navarrete, DO [address] [place] [address] PCP - General Family Medicine 01/15/21 Credit Officer Relationship Specialty Start Date End Date Nikhil Navarrete, DO [address] [place] [address] PCP - General Family Medicine 01/15/21 Credit Officer Relationship Specialty Start Date End Date Nikhil Navarrete, DO [address] [place] [address] PCP - General Family Medicine 01/15/21 Credit Officer Relationship Specialty Start Date End Date Nikhil Navarrete, DO [address] [place] [address] PCP - [facility] 01/15/21 Credit Officer Relationship Specialty Start Date End Date Nikhil Navarrete, DO [address] [place] [address] PCP - [facility] 01/15/21 Credit Officer Relationship Specialty Start Date End Date Nikhil Navarrete DO [address] [place] [address] PCP - [facility] 06/15/22 Scheduled Active and Recently Administ ered Medications (unrecognized section and content) Scheduled Medication Order 08/04/2023 08/05/2023 08/06/2023 cholestyramine light (Prevalite) 4 gram packet 4 g 4 g, oral, 2 times daily with meals, First dose on Wed08/01/23 at 1700 0800 (Not Given - Provider: Chula Cruz RN - Reason: Patient/family refused)1700 (Not Given - Provider: Chula Cruz RN - Reason: Patient/family refused) 0800 (Not Given - Provider: Ras Darden RN - Reason: Patient/family refused)1700 (Not Given - Provider: Ras Darden RN - Reason: Patient/family refused) 0846 (Given - Provider: Radha Mehta RN)1700 (Due) inFLIXimab-dyyb (Inflectra) 399 mg in sodium chloride 0.9% 250 mL IV* (COMPLETED) 399 mg (5 mg/kg 79.8 kg), intravenous, Administer over 1 Hours, Once, On Wed08/04/23 at 1515, For 1 dose, Do not infuse with other agents; use in-line low protein binding filter (0.2 micron). For induction titrate as follows: 10 mL/hr x15 min, 20 mL/hr x15 min, 40 mL/hr x15 min, 80 mL/hr x15 min, 150 mL/hr x30 min, 250 mL/hr x30 min or until infusion complete. Infuse over no less than 120 minutes. For maintenance infusions may administer over 1 hour if >= 6 years old, no history of infusion reaction and antibodies are negative. Infuse through a 0.2 - 0.22 micron in-line filter 0112 (New Bag - Provider: Kary Fraga RN)0335 (Stopped - Provider: Kary Fraga RN) methylPREDNISolone sod succinate (SOLU-Medrol) injection 60 mg 60 mg, intravenous, Every 24 hours, First dose (after last modification) on Wed07/30/23 at 1600 1534 (Given - Provider: Chula Cruz RN) 1554 (Given - Provider: Ras Darden RN) 1418 (Given - Provider: Radha Mehta RN) predniSONE (Deltasone) tablet 40 mg 40 mg, oral, Daily, First dose (after last modification) on 08/07/23 at 0900, For 60 doses sertraline (Zoloft) tablet 25 mg 25 mg, oral, Daily, First dose on Arcelia 07/29/23 at 1035 0831 (Given - Provider: Chula Cruz RN) 0921 (Given - Provider: Ras Darden RN) 0846 (Given - Provider: Radha Mehta RN) vancomycin (Vancocin) capsule 125 mg 125 mg, oral, 4 times daily, First dose on Wed07/30/23 at 1300, Suspected Indication (Select all that apply): Clostridium difficile, Type of Therapy: Definitive, Based on Culture 0514 (Given - Provider: Melida Luque RN)1244 (Given - Provider: Chula Cruz RN)1809 (Given - Provider: Chula Cruz RN)2316 (Given - Provider: Kary Fraga RN) 0609 (Given - Provider: Patience Cantrell, SIVAN)1550 (Given - Provider: aRs Darden RN)2149 (Given - Provider: Patience Cantrell RN) 0353 (Given - Provider: Patience Cantrell RN)0846 (Given - Provider: Radha Mehta RN)1418 (Given - Provider: Radha Mehta RN)2200 (Due - Provider: Max Anderson [facility]) Continuous Medication Order 08/04/2023 08/05/2023 08/06/2023 sodium chloride 0.9% infusion 100 mL/hr, intravenous, Continuous, Starting on Arcelia 07/29/23 at 1035 0213 (Rate/Dose Verify - Provider: Melida Luque, RN)0442 (Rate/Dose Verify - Provider: Melida Luque RN)0605 (Rate/Dose Verify - Provider: Melida Luque RN)0831 (New Bag - Provider: Chula Cruz RN)1243 (Continue to Inpatient Floor - Provider: Chula Cruz RN)1450 (Continue to Inpatient Floor - Provider: Chula Cruz RN)1810 (New Bag - Provider: Chula Cruz RN) 0609 (New Bag - Provider: Patience Cantrell RN) 0106 (New Bag - Provider: Kary Fraga RN)0320 (Rate/Dose Verify - Provider: Patience Cantrell RN)0616 (Rate/Dose Verify - Provider: Patience Cantrell RN)1112 (Rate/Dose Verify - Provider: Radha Mehta RN) PRN Medication Order 08/04/2023 08/05/2023 08/06/2023 acetaminophen (Tylenol) oral liquid 650 mg(Linked Group 1) 650 mg, oral, Every 4 hours PRN, pain mild (1-3), first line, Starting on Arcelia 07/29/23 at 1030, Give oral liquid per feeding tube if present. acetaminophen (Tylenol) suppository 650 mg(Linked Group 1) 650 mg, rectal, Every 4 hours PRN, pain mild (1-3), first line, Starting on Arcelia 07/29/23 at 1030, Give rectally if unable to administer by mouth or feeding tube., If ordered PRN for pain, nurse is permitted to administer this medication for higher pain scores based on patient preference? Yes acetaminophen (Tylenol) tablet 650 mg(Linked Group 1) 650 mg, oral, Every 4 hours PRN, pain mild (1-3), first line, fever (temp greater than 38.0 C), Starting on Arcelia 07/29/23 at 1030, If ordered PRN for pain, nurse is permitted to administer this medication for higher pain scores based on patient preference? Yes HYDROcodone-acetaminophe n ([place]) 5-325 mg per tablet 1 tablet 1 tablet, oral, Every 6 hours PRN, pain moderate (4-6), second line, Starting on Arcelia 08/05/23 at 2111, If ordered PRN for pain, nurse is permitted to administer this medication for higher pain scores based on patient preference? Yes 2339 (Given - Provider: Kary Fraga, RN) 0847 (Given - Provider: Radha Mehta RN) morphine injection 4 mg 4 mg, intravenous, Every 4 hours PRN, pain severe (7-10), first line, Starting on Arcelia 07/29/23 at 1035 0514 (Given - Provider: Melida Luque RN)0920 (Given - Provider: Chula Cruz, SIVAN)1355 (Given - Provider: Chula Cruz, RN)1810 (Given - Provider: Chula Cruz, SIVAN)2315 (Given - Provider: Kary Fraga RN) 0417 (Given - Provider: Patience Cantrell, SIVAN)1129 (Given - Provider: Ras Darden, SIVAN) ondansetron (Zofran) injection 4 mg(Linked Group 2) 4 mg, intravenous, Every 8 hours PRN, nausea/vomiting, first line, Starting on Arcelia 07/29/23 at 1030, 1st Line. Give IV if patient is unable to take orally. If inadequate response within 60 minutes, proceed to next-line agent for same PRN reason or contact provider if no further options ordered. When administering via IV Push, administer over 3-5 minutes. 0514 (Given - Provider: Melida Luque RN) ondansetron ODT (Zofran-ODT) disintegrating tablet 4 mg(Linked Group 2) 4 mg, oral, Every 8 hours PRN, nausea/vomiting, first line, Starting on Arcelia 24 at 1030, 1st Line. Patient should allow tablet to dissolve on tongue. Do not remove from blister pack until just before administering. If inadequate response within 60 minutes, proceed to next-line agent for same PRN reason or contact provider if no further options ordered. 0514 (See Alternative - Provider: Melida Luque RN) polyethylene glycol (Glycolax, Miralax) powder 238 g 238 g, oral, Once as needed, unsuccessful NuLytely prep, Starting on Arcelia 07/29/23 at 1505, For 1 dose, Add 238 g polyethylene glycol (Glycolax, Miralax) powder into 2 L Gatorade once. Linked Groups Order Group 1: acetaminophen (Tylenol) tablet 650 mgJump to med 650 mg, oral, Every 4 hours PRN, pain mild (1-3), first line, fever (temp greater than 38.0 C), Starting on Arcelia 07/29/23 at 1030
If ordered PRN for pain, nurse is permitted to administer this medication for higher pain scores based on patient preference? Yes Or acetaminophen (Tylenol) oral liquid 650 mgJump to med 650 mg, oral, Every 4 hours PRN, pain mild (1-3), first line, Starting on Arcelia 07/29/23 at 1030
Give oral liquid per feeding tube if present.
Or acetaminophen (Tylenol) suppository 650 mgJump to med 650 mg, rectal, Every 4 hours PRN, pain mild (1-3), first line, Starting on Arcelia 07/29/23 at 1030
Give rectally if unable to administer by mouth or feeding tube.
If ordered PRN for pain, nurse is permitted to administer this medication for higher pain scores based on patient preference? Yes Group 2: ondansetron ODT (Zofran-ODT) disintegrating tablet 4 mgJump to med 4 mg, oral, Every 8 hours PRN, nausea/vomiting, first line, Starting on Arcelia 07/29/23 at 1030
1st Line. Patient should allow tablet to dissolve on tongue. Do not remove from blister pack until just before administering. If inadequate response within 60 minutes, proceed to next-line agent for same PRN reason or contact provider if no further options ordered.
Or ondansetron (Zofran) injection 4 mgJump to med 4 mg, intravenous, Every 8 hours PRN, nausea/vomiting, first line, Starting on Arcelia 07/29/23 at 1030
1st Line. Give IV if patient is unable to take orally. If inadequate response within 60 minutes, proceed to next-line agent for same PRN reason or contact provider if no further options ordered. When administering via IV Push, administer over 3-5 minutes.
FOR RECORDS PERTAINING TO PATIENTS WHO ARE [...] BE BASED ON THE PRIMARY CLINICAL RECORDS. [employer] provides no warranty or guarantee of the accuracy or completeness of information in this document.
[2023-08-26 18:12] LABS: HPV Reflexed? NOT INDICATED
== END | disposition home or self-care (01) ==
LOC: LABSPEC 18:21
PROVIDERS: PCP Family Medicine; Visit Provider Obstetrics & Gynecology
DX: Z12.4 Encounter for screening for malignant neoplasm of cervix (principal)
CPT/HCPCS: 88175; G0145

== ENCOUNTER → 2025-01-01 | Outpatient (CLI) | payer MEDICAID, SELFPAY ==
[2025-01-03 21:07] LABS: Chlamydia By Nucleic Acid AMP Negative (Negative); Gonococcus By Nucleic Acid AMP Negative (Negative)
== END | disposition home or self-care (01) ==
LOC: LABSPEC 16:10
PROVIDERS: PCP Family Medicine; Referring Provider Obstetrics & Gynecology; Visit Provider Obstetrics & Gynecology
DX: O99.210 Obesity complicating pregnancy, unspecified trimester (principal); Z3A.00 Weeks of gestation of pregnancy not specified
CPT/HCPCS: 87086; 87088; 87491; 87591

== ENCOUNTER → 2025-02-01 | Outpatient (CLI) | payer MEDICAID, SELFPAY ==
[2025-02-01 16:53] LABS: Hematocrit 38.7 % (37-47); Hemoglobin 13.0 g/dL (12.0-15.0); Immature Granulocytes Count 0.100 X10^3/uL (0.0-0.0); Mean Corp Hgb Conc 33.6 g/dL (32-36); Mean Corpuscular Volume 88.6 fL (81-99); Mean Platelet Vol. 11.7 fl (6.2-12.0); NRBC Flagged by Analyzer 0 % (0-5); Platelet Count 276 K/mm3 (150-450); RBC Distribution Width CV 12.3 % (11.6-14.6); RBC Distribution Width SD 40.0 fl (35.1-43.9); Red Blood Count 4.37 M/mm3 (4.2-5.4); White Blood Count 14.0 K/mm3 (4.4-11.0)
[2025-02-01 17:38] LABS: HIV Nonreactive (Nonreactive); Hepatitis B Surface Antigen Nonreactive (Nonreactive); Hepatitis C Antibody Nonreactive (Nonreactive); Syphilis Antibodies Nonreactive (Nonreactive)
== END | disposition home or self-care (01) ==
PROVIDERS: Obstetrics & Gynecology; PCP Family Medicine; Referring Provider Advanced Practice Midwife; Visit Provider Advanced Practice Midwife
DX: O09.90 Supervision of high risk pregnancy, unspecified, unspecified trimester (principal); O99.210 Obesity complicating pregnancy, unspecified trimester; Z3A.00 Weeks of gestation of pregnancy not specified
CPT/HCPCS: 36415; 83036; 85025; 86703; 86762; 86780; 86803; 86850; 86900; 86901; 87340

== ENCOUNTER → 2025-05-22 | Outpatient (CLI) | payer MEDICAID, SELFPAY ==
[2025-05-22 16:08] LABS: Hematocrit 36.5 % (37-47); Hemoglobin 12.1 g/dL (12.0-15.0); Immature Granulocytes Count 0.150 X10^3/uL (0.0-0.0); Mean Corp Hgb Conc 33.2 g/dL (32-36); Mean Corpuscular Volume 89.2 fL (81-99); Mean Platelet Vol. 11.5 fl (6.2-12.0); NRBC Flagged by Analyzer 0 % (0-5); Platelet Count 258 K/mm3 (150-450); RBC Distribution Width CV 13.1 % (11.6-14.6); RBC Distribution Width SD 42.7 fl (35.1-43.9); Red Blood Count 4.09 M/mm3 (4.2-5.4); White Blood Count 12.7 K/mm3 (4.4-11.0)
[2025-05-22 17:11] LABS: HIV Nonreactive (Nonreactive); Syphilis Antibodies Nonreactive (Nonreactive); Vitamin B12 493 pg/mL (180-914)
[2025-05-22 17:14] LABS: Glucose Challenge Gest 1H 50g 132 mg/dL (70-140)
== END | disposition home or self-care (01) ==
LOC: BWCLAB 13:57
PROVIDERS: PCP Family Medicine; Visit Provider Obstetrics & Gynecology
DX: K51.80 Other ulcerative colitis without complications (principal); Z13.1 Encounter for screening for diabetes mellitus; Z3A.23 23 weeks gestation of pregnancy
CPT/HCPCS: 36415; 82607; 82950; 85025; 86703; 86780

== ENCOUNTER → 2025-07-24 | Outpatient (CLI) | payer MEDICAID, SELFPAY | END | disposition home or self-care (01) | LOC: LABSPEC 16:07 | PROVIDERS: PCP Family Medicine; Visit Provider Student in an Organized Health Care Education/Training Program | DX: O09.93 Supervision of high risk pregnancy, unspecified, third trimester (principal); Z3A.00 Weeks of gestation of pregnancy not specified | CPT/HCPCS: 87081 ==